=== PATIENT | male | born 1945 ===

== ENCOUNTER 2023-07-10 07:12 | Outpatient (REF) | payer MEDICARE, MEDICAID, SELFPAY ==
--- NOTE | ~2023-07-10 | XR_ITS ---
Exam: X-rays bilateral knees INDICATION: Pain in bilateral knees TECHNIQUE: 3 views of each knee. COMPARISON: None FINDINGS: Left knee: Bones are diffusely demineralized. Vascular calcifications. Marked narrowing of the medial compartment with remodeling, subchondral sclerosis and marginal osteophytes. Advanced degenerative changes in the patellofemoral compartment with joint space narrowing and hypertrophic change. Trace joint effusion. Right knee: Bones are diffusely demineralized. Vascular calcifications. Moderate to marked narrowing of the medial compartment with subchondral sclerosis and marginal osteophytes. Moderate degenerative changes in the patellofemoral compartment with joint space narrowing and hypertrophic change. Trace joint effusion. XR/XR knee RT 3V Impression: Severe degenerative changes bilateral knees, left greater than right.
--- NOTE | ~2023-07-10 | XR_ITS ---
Exam: X-rays bilateral knees INDICATION: Pain in bilateral knees TECHNIQUE: 3 views of each knee. COMPARISON: None FINDINGS: Left knee: Bones are diffusely demineralized. Vascular calcifications. Marked narrowing of the medial compartment with remodeling, subchondral sclerosis and marginal osteophytes. Advanced degenerative changes in the patellofemoral compartment with joint space narrowing and hypertrophic change. Trace joint effusion. Right knee: Bones are diffusely demineralized. Vascular calcifications. Moderate to marked narrowing of the medial compartment with subchondral sclerosis and marginal osteophytes. Moderate degenerative changes in the patellofemoral compartment with joint space narrowing and hypertrophic change. Trace joint effusion. XR/XR knee LT 3V Impression: Severe degenerative changes bilateral knees, left greater than right.
== END 2023-07-10 07:13 | disposition home or self-care (01) ==
LOC: HO.HOSX 07:12
PROVIDERS: Visit Provider Orthopaedic Surgery
DX: M17.0 Bilateral primary osteoarthritis of knee (principal)
CPT/HCPCS: 73562; 99202

== ENCOUNTER 2023-07-10 10:18 | Outpatient (AMB) | payer MEDICARE, MEDICAID, SELFPAY ==
--- NOTE | 2023-07-10 10:33 | A.OFFVIS_ITS ---
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 Patient reports his pain has been going on for about 5 years and is a 8 on the 1-10 pain scale. He states that both are equally bad and is using tylenol for the pain with little relief. He denies injury and surgery. He has cortisone injections with little relief. He has not had a viscosupplementation injection. He wishes to hold off on total knee replacement surgery for as long as possible. He has done physical therapy exercises which aggravated his pain. Allergies No Known Allergies Allergy (Verified 07/10/23 10:48) Medication List - Last Reconciled 07/10/23 by Fabrice Barragan MD amlodipine 10 mg PO DAILY celecoxib (Celebrex) 200 mg PO DAILY 3 months gabapentin mg PO hydralazine 25 mg PO BID lisinopril 40 mg PO DAILY metoprolol tartrate 100 mg PO BID pantoprazole 40 mg PO BID pravastatin 40 mg PO DAILY [facility] Surgical History (Updated 07/10/23 @ 10:49 by Jagruti Michaels CMA) Hx of cholecystectomy Hx of appendectomy Social History (Updated 07/10/23 @ 10:49 by Jagruti Michaels CMA) Patient Tobacco Use Status: Never used Tobacco Current occupational status: retired Physical Exam Vital Signs: BMI result Body Mass Index 38.4 Const Other: Well-nourished well-developed very friendly male awake alert and oriented x3 in no acute distress Extrem Other: Bilateral lower extremity examination shows good capillary refill, no skin lesions noted, normal sensation light touch Bilateral knee examination shows minimal effusions, palpable crepitus with range of motion, pain with range of motion, no instability Results Reviewed Results Reviewed: X-rays of the patient's bilateral knee show joint space narrowing, subchondral sclerosis, no acute bony abnormalities Assessment & Plan Assessment & Plan (1) Arthritis of left knee: Code(s): M17.12 - Unilateral primary osteoarthritis, left knee Category: Medical (2) Arthritis of right knee: Code(s): M17.11 - Unilateral primary osteoarthritis, right knee Category: Medical Plan Mr. Murrieta presents with bilateral knee pains due to degenerative joint disease. I had a lengthy discussion with the patient regarding the treatment options. He wishes to hold off on total knee replacement surgery for as long as possible. I agree with this plan. He has not gotten good relief from cortisone injections in the past. Thus, I will see whether or not the patient's insurance company will cover a viscosupplementation injection for both of his knees. I will see him back once the injections are available. I also gave him a prescription for Celebrex. Feel free to call me at any time should questions regarding his orthopedic management arise. Thank you very much for asking me to see this very friendly gentleman. I spent 21 minutes in reviewing the patient's records and imaging studies, seeing the patient and documenting in the medical record. Orders: Orders XR knee LT 3V 07/10/23 M25.562 - Pain in left knee XR knee RT 3V 07/10/23 M25.561 - Pain in right knee Medications: New celecoxib (Celebrex) 200 mg PO DAILY 90 caps 3RF 3 months Coding Level of Care Code New Pt Level 3 (25374) Diagnoses Arthritis of left knee M17.12 Arthritis of right knee M17.11
[2023-07-10 10:45] VITALS: BMI 38.4
== END 2023-07-10 11:05 | disposition home or self-care (01) ==
PROVIDERS: PCP Internal Medicine; Visit Provider Orthopaedic Surgery
DX: M17.0 Bilateral primary osteoarthritis of knee (principal)
CPT/HCPCS: 99204

== ENCOUNTER 2023-11-05 13:39 | Outpatient (AMB) | payer MEDICARE, MEDICAID, SELFPAY ==
[2023-11-05 13:41] VITALS: BMI 38.5
--- NOTE | 2023-11-05 13:41 | A.OFFVIS_ITS ---
Vital Signs 11/05/23 13:41 11/05/23 13:53 Height 5 ft 5 ft Weight 197 lb 197 lb BMI 38.5 38.5 Intake Visit Reasons: Bilateral knee pain Intake Note: Jluis is a 78 year old male who presents with complaints of bilateral knee pains. He describes his pains as sharp in nature. His pains have gotten worse over the last year in spite of continued non operative treatments. He has taken Tylenol and Celebrex which gave him mild relief. He denies any locking or giving way. He has done physical therapy exercises which aggravated his pain. He wishes to hold off on total knee replacement surgery for as long as possible. Allergies No Known Allergies Allergy (Verified 11/05/23 13:54) Medication List - Last Reconciled 11/05/23 by Fabrice Barragan MD amlodipine 10 mg PO DAILY celecoxib (Celebrex) 200 mg PO DAILY 3 months gabapentin mg PO hydralazine 25 mg PO BID lisinopril 40 mg PO DAILY metoprolol tartrate 100 mg PO BID pantoprazole 40 mg PO BID pravastatin 40 mg PO DAILY PFSH Surgical History (Updated 07/10/23 @ 10:49 by Jagruti Michaels CMA) Hx of cholecystectomy Hx of appendectomy Social History (Updated 07/10/23 @ 10:49 by Jagruti Michaels CMA) Patient Tobacco Use Status: Never used Tobacco Current occupational status: retired Physical Exam Vital Signs: BMI result Body Mass Index 38.5 Const Other: Well-nourished well-developed very friendly male awake alert and oriented x3 in no acute distress Extrem Other: Bilateral lower extremity examination shows good capillary refill, no skin lesions noted, normal sensation light touch Bilateral knee examination shows minimal effusions, palpable crepitus with range of motion, pain with range of motion, range of motion from -3 degrees to 115 degrees, no instability Office Procedures Joint Injection/Aspiration Joint Injection/Aspiration Primary Site: right knee Prep: site was prepped using aseptic technique Injected: 40 mg of, DepoMedrol and 1% plain lidocaine Procedure: The patient tolerated the procedure well Coding 91660 - Large joint Procedure code (CPT) selection complete Joint Injection/Aspiration Joint Injection/Aspiration Primary Site: left knee Prep: site was prepped using aseptic technique Injected: 40 mg of, DepoMedrol and 1% plain lidocaine Procedure: The patient tolerated the procedure well Coding 65734 - Large joint Procedure code (CPT) selection complete Results Reviewed Results Reviewed: X-rays of the patient's bilateral knee show joint space narrowing, subchondral sclerosis, no acute bony abnormalities Assessment & Plan Assessment & Plan (1) Arthritis of left knee: Code(s): M17.12 - Unilateral primary osteoarthritis, left knee Category: Medical (2) Arthritis of right knee: Code(s): M17.11 - Unilateral primary osteoarthritis, right knee Category: Medical (3) Pain in both knees: Code(s): M25.561 - Pain in right knee; M25.562 - Pain in left knee Plan Mr. Murrieta presents with bilateral knee pains due to degenerative joint disease. I had a lengthy discussion with the patient regarding the treatment options. The patient wishes to hold off on surgery for as long as possible. I agree with this plan. The risks and benefits of bilateral knee cortisone injections were discussed at length with the patient. The patient wished to proceed. Tolerated the injections well. He will continue with his home exercise program. He will contact me prior to his follow-up appointment in 3 months should any questions or concerns arise. Feel free to call me at any time should questions regarding his orthopedic management arise. I spent 20 minutes in reviewing the patient's records and imaging studies, seeing the patient and documenting in the medical record. Orders: Orders AMB Joint Injection/Aspiration Today M17.11 - Unilateral primary osteoarthritis, right knee AMB Joint Injection/Aspiration Today M17.12 - Unilateral primary osteoarthri tis, left knee Coding Level of Care Code Est Pt Level 3 (15762) Complex EM visit Add On G2211 Diagnoses Arthritis of left knee M17.12 Arthritis of right knee M17.11 Pain in both knees M25.561; M25.562 CPT Codes Coding - 96467 Large joint: 84467 - Large joint ([id number]) Coding - 76633 Large joint: 88193 - Large joint ([id number])
[2023-11-05 13:53] VITALS: BMI 38.5
== END 2023-11-05 14:17 | disposition home or self-care (01) ==
PROVIDERS: PCP Internal Medicine; Visit Provider Orthopaedic Surgery
DX: M17.0 Bilateral primary osteoarthritis of knee (principal)
CPT/HCPCS: 20610; 99213

== ENCOUNTER → 2023-11-05 13:39 | Outpatient (BNVA) | payer MEDICARE, MEDICAID, SELFPAY | PROVIDERS: PCP Internal Medicine; Visit Provider Orthopaedic Surgery | DX: M17.0 Bilateral primary osteoarthritis of knee (principal) | CPT/HCPCS: 20610; 99212; J1010 ==

== ENCOUNTER 2024-02-05 10:57 | Outpatient (AMB) | payer MEDICARE, MEDICAID, SELFPAY ==
--- OUTSIDE RECORDS SUMMARY | 2024-02-05 10:59 | XMS_ITS ---
Author Name [facility] Organization Unknown History of Medication Use Medication Directions Dispensed Refills Start Date End Date Stat gabapentin 100 mg capsule TAKE 1 CAPSULE BY MOUTH TWICE A DAY 09/13/2022 active lisinopril 40 mg tablet TAKE 1 TABLET BY MOUTH EVERY DAY FOR 30 DAYS 09/13/2022 active sucralfate 1 gram tablet TAKE 1 TABLET BY MOUTH THREE TIMES A DAY 09/13/2022 active amlodipine 10 mg tablet TAKE 1 TABLET BY MOUTH EVERY DAY FOR 90 DAYS 09/13/2022 active chlorhexidine gluconate 0.12 % mouthwash RINSE MOUTH WITH 15ML FOR 30 SECONDS THEN SPIT OUT. 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 03/22/2023 active hydrocortisone 2.5 % topical cream with perineal applicator APPLY TO AFFECTED AREA TWICE A DAY DIRECTED 09/13/2022 active quetiapine 50 mg tablet TAKE 1 TABLET BY MOUTH EVERYDAY AT BEDTIME 09/13/2022 active pantoprazole 40 mg tablet,delayed release TAKE 1 TABLET BY MOUTH TWICE A DAY 09/13/2022 active pravastatin 40 mg tablet TAKE 1 TABLET BY MOUTH EVERY DAY FOR 90 DAYS 09/13/2022 active hydralazine 25 mg tablet TAKE 1 TABLET BY MOUTH TWICE A DAY WITH FOOD 09/13/2022 active Kenalog 40 mg/mL suspension for injection Take 1 mL by injection route. 09/13/2022 active lidocaine (PF) 10 mg/mL (1 %) injection solution Take 2 mL by injection route. 09/13/2022 active Problems Problem Status Onset Date Problem Type Date of Resoluti on Source Osteoarthritis of right knee joint active 2022-06-06 ProblemAct [facility] Osteoarthritis of left knee joint active 2022-06-06 ProblemAct [facility]
--- OUTSIDE RECORDS SUMMARY | 2024-02-05 10:59 | XMS_ITS | Data Portability ---
Author Organization [facility] Pain Managem ANDREA noriega PAIN OFFICE Address [address] [place] [address] Care Team Providers Care Lead Developer Name Role Phone АЛЕКСАНДР BROOKS Primary Care Provider Assessment Encounter Date Assessment Date Assessment LastModified by Organization Details LastModified Time 03/18/2019 03/18/2019 Mr. Murrieta is a 73 year old man with low back pain radiating into both lower extremities. On exam ,he has pain on flexion. 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 L4-L5 right paracentral and foraminal disc protrusion extending superiorly resulting impingement of the right L4 exiting nerve root. L4-L5 right paracentral disc protrusion extending inferiorly and compressing the right L5 traversing nerve root. Compression of the left L5 traversing nerve root is also present. I recommend a repeat Lumbar epidural steroid injections under fluroscopic guidance. The risks and benefits of the procedure were discussed in detail. He wishes to proceed. An appointment has been booked for the same. He needs a speedboat driver on the day of the procedure. [email or web address] Not available 03/18/2019 11:39:48 04/14/2019 04/14/2019 Mr. Murrieta is a 73 year old man with low back pain radiating into both lower extremities. On exam ,he has pain on flexion. He is here for a repeat Lumbar epidural steroid injections under fluoroscopic guidance. The risks and benefits of the procedure were discussed in detail. He wishes to proceed. He can follow up as needed. [email or web address] Not available 04/14/2019 11:32:02 11/10/2019 11/10/2019 Mr. Murrieta is a 74 year old man with low back pain radiating into both lower extremities. On exam ,he has pain on flexion. 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 L4-L5 right paracentral and foraminal disc protrusion extending superiorly resulting impingement of the right L4 exiting nerve root. L4-L5 right paracentral disc protrusion extending inferiorly and compressing the right L5 traversing nerve root. Compression of the left L5 traversing nerve root is also present. I recommend a repeat Lumbar epidural steroid injections under fluroscopic guidance. The risks and benefits of the procedure were discussed in detail. He wishes to proceed. An appointment has been booked for the same. He needs a speedboat driver on the day of the procedure. [email or web address] Not available 11/11/2019 09:59:02 11/04/2020 11/04/2020 Mr. Murrieta is a 75 year old man with low back pain radiating into both lower extremities, right is greater than left. On exam ,he has pain on flexion. 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 L4-L5 right paracentral and foraminal disc protrusion extending superiorly resulting impingement of the right L4 exiting nerve root. L4-L5 right paracentral disc protrusion extending inferiorly and compressing the right L5 traversing nerve root. Compression of the left L5 traversing nerve root is also present. I recommend a repeat Lumbar epidural steroid injections under fluoroscopic guidance. The risks and benefits of the procedure were discussed in detail. He wishes to proceed. An appointment has been booked for the same. He needs a speedboat driver on the day of the procedure. tmanikantan Not available 11/04/2020 10:12:44 11/08/2020 11/08/2020 Mr. Murrieta is a 75 year old man with low back pain radiating into both lower extremities. On exam ,he has pain on flexion. He is here for a repeat Lumbar epidural steroid injections under fluoroscopic guidance. The risks and benefits of the procedure were discussed in detail. He wishes to proceed. He can follow up as needed. [email or web address] Not available 11/08/2020 11:24:26 Plan of Treatment Reminders Order Date Submit Date Provider Last Modified By Organization Details Last Modified Time Details Appointments None record ed. Lab None record ed. Referral None record ed. Procedures None record ed. Surgeries None record ed. Imaging None record ed. Medication Orders None record ed. Patient TargetsNo targets recorded. Patient Instructions Encounter Date Encounter Id Patient Instructions Last Modified By Organization Details Last Modified Time 03/18/2019 [id number] He was advised against bed rest lasting longer than four days and to continue activities as tolerated. [email or web address] Not available 03/18/2019 11:38:54 04/14/2019 [id number] He was advised to continue with home exercise program tmanikantan Not available 04/14/2019 11:29:15 He was advised against bed rest lasting longer than four days and to continue activities as tolerated. tmanikantan Not available 04/14/2019 11:29:17 11/10/2019 [id number] He was advised against bed rest lasting longer than four days and to continue activities as tolerated. Telehealth visit: The patient was located at home for this telephone electronic visit and gave consent for this visit to be conducted via telehealth. 15 minutes was spent on this call and greater than 50% of the visit was spent on counseling and coordination of care. tmanikantan Not available 11/11/2019 09:59:16 11/04/2020 [id number] He was advised against bed rest lasting longer than four days and to continue activities as tolerated. tmanikantan Not available 11/04/2020 10:10:07 11/08/2020 [id number] He was advised to continue with home exercise program tmanikantan Not available 11/08/2020 11:23:19 He was advised against bed rest lasting longer than four days and to continue activities as tolerated. tmanikantan Not available 11/08/2020 11:23:20 Reason for Referral None Reported. Results Created Date Observation Date Name Description Value Unit Range Abnormal Flag Note LastModifiedBy Organization Detail LastModifiedTime 03/03/19 20 03/02/2019 MRI, lumba r spine , w/o contr ast [facility] Access ion Number : [id number] 4.3 Patiyohan t Name : Jesika Scanlon y Medica l Record Number : [id number] Date of : 1945 Date of Exam : 2019 Referr ing Physic isela : KEM LAZARDaniel, MARTYMarli [facility] [address] [place] [address] Exam : MR - LUMBAR SPINE (C-) CPT 12120 - Room Descri ption : [place] Siem Espr 2 1.5 Techni que : Sag T1, Sag3d SPACE, Sag STIR, Sag T2 reform at, Ax T2 reform at Final Report INDICA TION: Radicu lopath y. Additi onal histor y includ es back pain extend ing into the bilate ral lower extrem ities with bilate ral lower extrem ity parest hesias . TECHNI QUE: Multip lanar multis equenc e MRI of the lumbar spine was obtain ed withou t IV contra st. COMPAR ELDA: No prior. FINDIN GS: The lumbar spine alignm ent is mainta ined. The verteb ral body height s are preser ronald. There are multil evel Modic type II endpla te marrow change s throug hout the lumbar spine. The bone marrow signal is otherw ise unrema rkable . There is overal l congen ital short pedicl es with diffus e narrow ing of the spinal canal. The conus medull aletha termin ates at L1-L2 and has normal signal and config uratio n. The parasp inal and visual ized retrop eriton eal soft tissue s appear unrema rkable . Only seen in the locali zer images , incomp letely visual ized T2 hyperi ntense lesion s are noted in the kidney s, probab ly cysts. At T11-T1 2, there is a mild diffus e disc bulge withou t signif icant spinal canal or forami nal stenos is. There is facet joint arthro rhonda. At T12-L1 , there is no spinal canal or forami nal stenos is. The disc is preser ronald. There are bilate ral margin al spurs. At L1-L2, there is a mild diffus e disc bulge, ligame ntum flavum thicke ced, facet joint arthro rhonda, and promin ent epidur al fat result ing in mild to modera te spinal canal stenos is with crowdi ng of the magi sing nerve roots. There is modera te right and mild left forami nal stenos is. At L2-L3, there is a modera te diffus e disc bulge, promin ent epidur al fat, ligame ntum flavum thicke ced, and facet joint arthro rhonda result ing in severe spinal canal stenos is with compre ssion of the magi sing nerve roots. The nerve roots above this level appear buckle d. There is mild bilate ral forami nal stenos is. At L3-L4, there is a diffus e disc bulge with a superi mposed right extraf oramin al asymme tric disc protru porter. There is ligame ntum flavum thicke ced, promin ent epidur al fat, and facet joint arthro rhonda. These findin gs result in severe spinal canal stenos is with compre ssion of the magi sing nerve roots. There is mild to modera te left and modera te right forami nal stenos is. The bilate ral L3 exitin g nerve roots contac t the bulgin g disc within the forami na. At L4-L5, there is a modera te diffus e disc bulge with a superi mposed right forami nal and parace ntral disc protru porter extend ing superi nena and into the right forame n imping ing upon the right L4 exitin g nerve root. There is ligame ntum flavum thicke ced, promin ent epidur al fat, and facet joint arthro rhonda result ing in severe spinal canal stenos is with compre ssion of the magi sing nerve roots. There is modera te left forami nal stenos is. The left L4 exitin g nerve root contac ts the bulgin g disc outsid e the forame n. A right parace ntral disc protru porter is also extend ing inferi nena and deform ing the ventra l aspect of the thecal sac as well as narrow ing the canal national sales executive ior to the superi or aspect of the L5 verteb ral body with compre ssion of the right L5 nerve root. There is also compre ssion of the left L5 magi sing nerve root. At L5-S1, there is facet joint arthro rhonda withou t signif icant forami nal stenos is. There is promin ent epidur al fat result ing in mild spinal canal stenos is. IMPRES PORTER: In a backgr ound of diffus e mild spinal canal stenos is due to congen ital short pedicl es, multil evel severe spinal canal stenos is at L2-L3, L3-L4, and L4-L5 with compre ssion of the magi sing nerve roots. L4-L5 right parace ntral and forami nal disc protru porter extend ing superi nena result ing imping ement of the right L4 exitin g nerve root. L4-L5 right parace ntral disc protru porter extend ing inferi nena and compre ssing the right L5 magi sing nerve root. Compre ssion of the left L5 magi sing nerve root is also presen t. Incomp letely visual ized T2 hyperi ntense lesion s in the region of the kidney s probab ly cysts. ----- PHYSIC ISELA : ALINA WARNER MD (Signa paulettee on file) 2019 [facility] [address] [facility] [place], [address], 03/18/2019 11:09:20 03/03/19 20 03/02/2019 MRI, lumba r spine , w/o contr ast No observ ation record ed. [facility] [address], [place], [address], 03/18/2019 11:03:23 Result Notes None recorded. 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 Procedures Surgical History Date Name Laterality Status Provider Name and Address Organization Details Recorded Time 11/09/19 21 Lumbar Epidural steroid injection under fluoroscopic guidance completed José Antonio Umanzor MD [address] , [address], [place], [address], [place] [facility] 11/08/2020 11:23:58 04/14/19 20 Lumbar Epidural steroid injection under fluoroscopic guidance completed José Antonio Umanzor MD [address] , [address], [place], [address], [place] [facility] 04/14/2019 11:31:21 08/30/19 16 Lumbar Epidural steroid injection under fluoroscopic guidance completed José Antonio Umanzor MD [address] , [address], [place], [address], [place] [facility] 09/01/2015 13:37:26 05/31/19 16 Lumbar Epidural steroid injection under fluoroscopic guidance completed José Antonio Umanzor MD [address] , [address], [place], [address], [place] [facility] 05/31/2015 14:20:54 11/10/19 15 Lumbar Epidural steroid injection under fluoroscopic guidance completed José Antonio Umanzor MD [address] , [address], [place], [address], [place] [facility] 11/09/2014 14:39:42 08/11/19 15 Lumbar Epidural steroid injection under fluoroscopic guidance completed José Antonio Umanzor MD [address] , [address], [place], [address], [place] [facility] 08/12/2014 14:30:47 12/23/19 13 Lumbar Epidural steroid injection under fluoroscopic guidance completed José Antonio Umanzor MD [address] , [address], [place], [address], [place] [facility] 12/23/2012 14:13:41 11/13/19 13 Lumbar Epidural steroid injection under fluoroscopic guidance completed José Antonio Umanzor MD [address] , [address], [place], [address], [place] [facility] 11/18/2012 13:56:25 Cholecystectomy completed Josephine Fitzpatrick [place] - [facility] 11/05/2012 08:26:57 Appendectomy completed Josephine Fitzpatrick [place] - [facility] 11/05/2012 08:26:57 Imaging Results Imaging Date Name Status LastModified by Organiz ation Details LastModified Time 03/02/2019 MRI, lumbar spine, w/o contrast completed [facility] [address] [place], [address], 03/18/2019 11:09:20 03/02/2019 MRI, lumbar spine, w/o contrast completed [facility] [address] [facility] [address] [place], [address], 03/18/2019 11:03:23 Procedure Notes None recorded. Medical Equipment None Reported. Allergies No known drug allergies Medications Name Sig Start Date Stop Date Status Note LastModified by Organization Details LastModified Time amoxicillin 500 mg capsule 03/18 completed Not Available Not Available Not Available prednisone 10 mg tablet 02/26 completed Not Available Not Available Not Available doxycycline hyclate 100 mg capsule 06/25 completed Not Available Not Available Not Available citalopram 40 mg tablet 02/26 completed Not Available Not Available Not Available azithromycin 250 mg tablet active Not Available Not Available Not Available pravastatin 40 mg tablet TAKE 1 TABLET BY MOUTH EVERY DAY 11/08 completed Not Available Not Available Not Available ibuprofen 800 mg tablet active Not Available Not Available Not Available metoprolol tartrate 100 mg tablet TAKE 1 TABLET BY MOUTH TWICE A DAY WITH MEALS active Not Available Not Available No t Available Avelox 400 mg tablet active Not Available Not Available No t Available prednisone 5 mg tablet 02/26 completed Not Available Not Available Not Available clonazepam 1 mg tablet 02/26 completed Not Available Not Available Not Available hydralazine 25 mg tablet TAKE 1 TABLET BY MOUTH TWICE A DAY WITH FOOD active Not Available Not Available No t Available peg-electrol yte solution 420 gram oral solution active Not Available Not Available Not Available quetiapine 100 mg tablet 02/26 completed Not Available Not Available Not Available oxycodone-ac etaminophen 5 mg-325 mg tablet active Not Available Not Available Not Available tamsulosin 0.4 mg capsule 03/18 completed Not Available Not Available Not Available trazodone 100 mg tablet active Not Available Not Available Not Available amlodipine 10 mg tablet TAKE 1 TABLET BY MOUTH EVERY DAY active Not Available Not Available No t Available benzonatate 100 mg capsule TAKE 1 CAPSULE BY MOUTH THREE TIMES A DAY 06/25 completed Not Available Not Available Not Available dexamethason e 4 mg tablet 02/26 completed Not Available Not Available Not Available omeprazole 20 mg capsule,mercedes yed release active Not Available Not Available Not Available gabapentin 100 mg capsule TAKE ONE CAPSULE BY MOUTH TWICE A DAY active Not Available Not Available No t Available ergocalcifer ol (vitamin D2) 1,250 mcg (50,000 unit) capsule TAKE 1 CAPSULE BY MOUTH ONCE A WEEK active Not Available Not Available No t Available zolpidem 10 mg tablet TAKE 1 TABLET BY MOUTH AT BEDTIME active Not Available Not Available No t Available methylpredni solone 4 mg tablets in a dose pack 06/25 completed Not Available Not Available Not Available lisinopril 40 mg tablet TAKE 1 TABLET BY MOUTH EVERY DAY 11/08 completed Not Available Not Available Not Available doxycycline hyclate 100 mg tablet 02/26 completed Not Available Not Available Not Available loratadine 10 mg tablet TAKE 1 TABLET BY ORAL ROUTE EVERY DAY 03/18 completed Not Available Not Available Not Available tobramycin 0.3 %-dexamethas one 0.1 % eye drops,suspen porter active Not Available Not Available Not Available oxycodone 5 mg tablet active Not Available Not Available No t Available chlorhexidin e gluconate 0.12 % mouthwash active Not Available Not Available No t Available ProAir HFA 90 mcg/actuatio n aerosol inhaler active Not Available Not Available Not Available quetiapine 50 mg tablet TAKE 1 TABLET BY MOUTH AT BEDTIME active Not Available Not Available No t Available Voltaren 1 % topical gel active Not Available Not Available Not Available Uloric 40 mg tablet Take 1 tablet every day by oral route. active Not Available Not Available No t Available Kalexate oral powder active Not Available Not Available Not Available GaviLyte-G 236 gram-22.74 gram-6.74 gram-5.86 gram oral solution 11/04 completed Not Available Not Available Not Available Vitals Date Recorded Body height Body mass index (BMI) Body weight Heart rate Oxygen saturation Oxygen saturation in Arterial blood by Pulse oximetry Systolic blood pressure Diastolic blood pressure Provider Name and Address Organization Details Last Updated DateTime 0 170.18 cm 38.7 kg/m2 694773. 32 g 57 /min 98 % 98 % 132 mm[Hg] 53 mm[Hg] José Antonio freed MD [address] , [address], [place], [address], [place] [facility] 0 10:58:47 Date Recorded Body height Body mass index (BMI) Body weight Heart rate Oxygen saturation Oxygen saturation in Arterial blood by Pulse oximetry Systolic blood pressure Diastolic blood pressure Provider Name and Address Organization Details Last Updated DateTime 0 170.18 cm 38.7 kg/m2 783550. 32 g 56 /min 95 % 95 % 137 mm[Hg] 44 mm[Hg] Lonny freed [place] - [facility] 0 09:18:40 Date Recorded Body height Heart rate Oxygen saturation Oxygen saturation in Arterial blood by Pulse oximetry Body mass index (BMI) Body weight Systolic blood pressure Diastolic blood pressure Provider Name and Address Organization Details Last Updated DateTime 1 170.18 cm 56 /min 95 % 95 % 37.4 kg/m2 942605. 58 g 126 mm[Hg] 44 mm[Hg] José Antonio freed MD [address] , [address], [place], [address], [place] [facility] 1 09:16:16 Date Recorded Body height Heart rate Oxygen saturation Oxygen saturation in Arterial blood by Pulse oximetry Systolic blood pressure Diastolic blood pressure Provider Name and Address Organization Details Last Updated DateTime 1 170.18 cm 52 /min 95 % 95 % 136 mm[Hg] 50 mm[Hg] Kelsey Pattonwell [place] - [facility] 1 11:04:12 Social History Question Answer Notes LastModified by Organizat ion Details LastModified Time Tobacco Smoking Status Never Smoker Not Available [employer] 12/04/2019 03:16:10 What Is Your Level Of Alcohol Consumption? Occasional [id number] Information not available 12/04/2019 Are You Currently Employed? Yes Retired [id number] Information not available 12/04/2019 Which Illicit Or Recreational Drugs Have You Used? No [id number] Information not available 12/04/2019 Education 12 Information no t available 11/05/2012 Live Alone Or With Others? Alone [facility] Information not available 11/05/2012 Marital Status [facility] Informatio n not available 11/05/2012 What Was The Date Of Your Most Recent Tobacco Screening? 07/03/2018 [id number] Information not available 12/04/2019 Sex: Unknown Functional Status None recorded. Mental Status None recorded. Family History Nothing Reported. Medical History Condition Response Kidney Stones Y Hypertension Y Kidney Disease Y High Cholesterol Y GERD/Reflux Y Past Encounters Encounter ID Performer Location Encounter Start Date Encounter Closed Date Diagnosis/Indication Diagnosis SNOMED-CT Code Diagnosis ICD10 Code [id number] José Antonio Umanzor MD PAIN OFFICE [address] [facility] [place] [address] 11/05/2012 07:56:28 11/05/2012 10:46:13 [id number] José Antonio Umanzor MD PAIN OFFICE [address] [facility] [place] [address] 11/12/2012 13:06:18 11/18/2012 13:56:45 Displacement of lumbar intervertebral disc without myelopathy 37932953 Lumbosacra l radiculitis 64193049 61689 PAIN OFFICE [address] [facility] [place] [address] 12/11/2012 13:25:59 12/11/2012 14:02:08 Displacement of lumbar intervertebral disc without myelopathy 12496966 Lumbosacra l radiculitis 11084374 Spinal priyank nosis of lumbar region 78232334 12500 [facility] [address] [facility] [place] [address] 12/22/2012 11:20:03 12/22/2012 15:24:15 Spinal stenosis of lumbar region 84558142 Displaceme nt of lumbar intervertebral disc without myelopathy 15060036 Lumbosacra l radiculitis 92640901 00874 [facility] [address] [facility] [place] [address] 02/05/2013 13:06:46 02/05/2013 14:50:05 Spinal stenosis of lumbar region 93118216 Displaceme nt of lumbar intervertebral disc without myelopathy 93299430 Lumbosacra l radiculitis 19398860 20720 [facility] [address] [facility] [place] [address] 07/26/2014 10:46:47 07/27/2014 09:34:23 Displacement of lumbar intervertebral disc without myelopathy 30616211 Lumbar spondylosis 82363 0009 Spinal priyank nosis of lumbar region 45734135 46944 [facility] [address] [facility] [place] [address] 08/10/2014 14:16:57 08/12/2014 14:31:26 Spinal stenosis of lumbar region 96792684 Displaceme nt of lumbar intervertebral disc without myelopathy 11453417 Lumbar spondylosis 88604 0009 Lumbosacra l radiculitis 15630887 48496 [facility] [address] [facility] [place] [address] 09/09/2014 10:46:20 09/09/2014 11:33:07 Spinal stenosis of lumbar region 85879791 Displaceme nt of lumbar intervertebral disc without myelopathy 41175099 Lumbar spondylosis 64289 0009 Lumbosacra l radiculitis 90487993 82391 [facility] [address] [facility] [place] [address] 11/08/2014 10:54:37 11/08/2014 11:26:13 Spinal stenosis of lumbar region 80780745 Displaceme nt of lumbar intervertebral disc without myelopathy 96592714 Lumbar spondylosis 21019 0009 Lumbosacra l radiculitis 29073399 99154 [facility] [address] [place] [address] 11/09/2014 13:48:33 11/09/2014 15:35:53 Spinal stenosis of lumbar region 71327748 Displaceme nt of lumbar intervertebral disc without myelopathy [id number] Lumbar spondylosis 42870 0009 Lumbosacra l radiculitis 40570883 [id number] José Antonio Umanzor MD [facility] [address] [place] [address] 05/31/2015 13:54:03 05/31/2015 14:21:27 Spinal stenosis of lumbar region 27069297 M48.06 Displaceme nt of lumbar intervertebral disc without myelopathy 17139475 M51.26 Lumbar spondylosis 72688 0009 M47.26 Lumbosacra l radiculitis 36329447 M54.17 [id number] José Antonio Umanzor MD PAIN OFFICE [address] [place] [address] 08/30/2015 15:22:40 09/01/2015 13:37:55 Spinal stenosis of lumbar region 53535199 M48.06 Displaceme nt of lumbar intervertebral disc without myelopathy 32180926 M51.26 Lumbar spondylosis 64538 0009 M47.26 Lumbosacra l radiculitis 95300911 M54.17 [id number] José Antonio Umanzor MD PAIN OFFICE [address] [place] [address] 06/25/2018 13:43:24 06/25/2018 14:47:03 Degeneration of cervical intervertebral disc 53291672 M50.30 Cervical radiculopathy 14964536 M54.12 [id number] José Antonio Umanzor MD [facility] [address] [place] [address] 07/03/2018 13:11:22 07/03/2018 14:17:28 Degeneration of cervical intervertebral disc 60652930 M50.30 Cervical radiculopathy 67671462 M54.12 [id number] José Antonio Umanzor MD [facility] [address] [place] [address] 02/26/2019 08:06:35 02/26/2019 08:53:29 Spinal stenosis of lumbar region 52015673 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 38462067 M51.26 Lumbar spondylosis 60199 0009 M47.26 Lumbosacra l radiculitis 05466504 M54.17 [id number] José Antonio Umanzor MD [facility] [address] [place] [address] 03/18/2019 10:43:42 03/18/2019 11:40:26 Spinal stenosis of lumbar region 95497716 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 81461368 M51.26 Lumbar spondylosis 66989 0009 M47.26 Lumbosacra l radiculitis 92843926 M54.17 [id number] José Antonio Umanzor MD [facility] [address] [place] [address] 04/14/2019 08:57:30 04/14/2019 14:33:43 Spinal stenosis of lumbar region 13114292 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 18618090 M51.26 Lumbar spondylosis 47079 0009 M47.26 Lumbosacra l radiculitis 58333043 M54.17 [id number] José Antonio Umanzor MD [facility] [address] [place] [address] 11/10/2019 12:09:37 11/11/2019 10:00:07 Spinal stenosis of lumbar region 80902866 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 18151767 M51.26 Lumbar spondylosis 84781 0009 M47.26 Lumbosacra l radiculitis 64339272 M54.17 [id number] José Antonio Umanzor MD [facility] [address] [place] [address] 11/04/2020 09:05:45 11/04/2020 10:13:28 Spinal stenosis of lumbar region 06733268 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 34417573 M51.26 Lumbar spondylosis 39632 0009 M47.26 Lumbosacra l radiculitis 64941652 M54.17 [id number] José Antonio Umanzor MD [facility] [address] [facility] [address] [place] [address] 11/08/2020 10:50:37 11/08/2020 11:27:50 Spinal stenosis of lumbar region 98044191 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 42584262 M51.26 Lumbar spondylosis 90335 0009 M47.26 Lumbosacra l radiculitis 64551302 M54.17 Health Concerns Section Related Observation LastModified by Organization Detai ls LastModified Time None Recorded Concern Status LastModified by Organization Details LastModified Time None Recorded Advance Directives Directive None Recorded Payers Encounter Date Sequence Insurance Name Policy Number Policy Nolasco Covered Member ID Nolasco Member ID Guarantor Name 03/18/2019 1 [place] [employer] Jluis Starcheus [id number] Jluis Starcheus 03/18/2019 2 [place] Jluis Starcheus [id number] Jluis Starcheus 04/14/2019 1 [place] [employer] Jluis Starcheus [id number] Jluis Starcheus 04/14/2019 2 [place] Jluis Starcheus [id number] Jluis Starcheus 11/10/2019 1 [place] [employer] Jluis Starcheus [id number] Jluis Starcheus 11/10/2019 2 [place] Jluis Starcheus [id number] Jluis Starcheus 11/04/2020 1 [place] [employer] Jluis Starcheus [id number] Jluis Starcheus 11/04/2020 2 [place] Jluis Starcheus [id number] Jluis Murrieta 11/08/2020 1 [place] [employer] Jluis Murrieta [id number] Jluis Murrieta 11/08/2020 2 [place] [facility] Jluis Murrieta [id number] Jluis Murrieta Notes Date Note Type Note Provider Name and Address Organization Details Recorded Time 03/18/2019 text/html He is here for review of MRI Lumbar spine . 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 L4-L5 right paracentral and foraminal disc protrusion extending superiorly resulting impingement of the right L4 exiting nerve root. L4-L5 right paracentral disc protrusion extending inferiorly and compressing the right L5 traversing nerve root. Compression of the left L5 traversing nerve root is also present. He continues to have low back pain radiating into right lower extremity. He has been doing physical therapy with some improvement of his pain. He is able to walk without the cane for a few steps. José Antonio Umanzor MD [address] [facility] , [address], [place], [address], [facility] - Pain Management 03/18/2019 15:00:19 04/14/2019 text/html He is here today for a lumbar epidural steroid injection under fluoroscopic guidance. José Antonio Umanzor MD [address] [facility] , [address], [place], [address], [facility] - Pain Management 04/14/2019 16:33:15 11/10/2019 text/html This is a follow up.He continues to have low back pain radiating into right lower extremity. He has been doing physical therapy with some improvement of his pain. He is able to walk without the cane for a few steps. 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 L4-L5 right paracentral and foraminal disc protrusion extending superiorly resulting impingement of the right L4 exiting nerve root. L4-L5 right paracentral disc protrusion extending inferiorly and compressing the right L5 traversing nerve root. Compression of the left L5 traversing nerve root is also present. He had a lumbar epidural steroid injection on 03/2019 and reports good pain benefit with a recent return of pain. He is also having knee pain and is seeing [facility] and is getting injections. José Antonio Umanzor MD [address] [facility] , [address], [place], [address], [facility] Pain Management 11/11/2019 11:16:19 11/04/2020 text/html He is here for a follow up . He continues to have low back pain radiating into right lower extremity. He has been doing physical therapy with some improvement of his pain. He is able to walk without the cane for a few steps. [facility] He [facility] from now . He is wearing a back brace and feels it helps him. He has no history of bladder or bowel incontinence. 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 L4-L5 right paracentral and foraminal disc protrusion extending superiorly resulting impingement of the right L4 exiting nerve root. L4-L5 right paracentral disc protrusion extending inferiorly and compressing the right L5 traversing nerve root. Compression of the left L5 traversing nerve root is also present. José Antonio Umanzor MD [address] [facility] , [address], [place], [address], [facility] Pain Management 11/07/2020 09:27:27 11/08/2020 text/html He is here today for a lumbar epidural steroid injection under fluoroscopic guidance. José Antonio Umanzor MD [address] [facility] , [address], [place], [address], [facility] Pain Management 11/08/2020 15:27:26
--- NOTE | 2024-02-05 11:01 | MHC.OFFVIS ---
Vital Signs 02/05/24 11:07 Height 5 ft Weight 197 lb BMI 38.5 Intake Visit Reasons: Bilateral knee pains Intake Note: Jluis is a 78 year old male who presents with complaints of bilateral knee pain. He describes his pains as sharp in nature. Has had cortisone injections which gave him fairly good relief. He has also tried Tylenol and Celebrex which gave him mild relief. He has done physical therapy exercises which aggravated his pain. He wishes to hold off on surgery for as long as possible. Last injections 11/05/23 helped, repeat today: yes Allergies No Known Allergies Allergy (Verified 02/05/24 11:08) Medication List - Last Reconciled 02/05/24 by Fabrice Barragan MD amlodipine 10 mg PO DAILY celecoxib (Celebrex) 200 mg PO DAILY 3 months gabapentin mg PO hydralazine 25 mg PO BID lisinopril 40 mg PO DAILY metoprolol tartrate 100 mg PO BID pantoprazole 40 mg PO BID pravastatin 40 mg PO DAILY PFSH Surgical History (Updated 07/10/23 @ 10:49 by Jagruti Michaels CMA) Hx of cholecystectomy Hx of appendectomy Social History (Updated 07/10/23 @ 10:49 by Jagruti Michaels CMA) Patient Tobacco Use Status: Never used Tobacco Current occupational status: retired Physical Exam Vital Signs: BMI result Body Mass Index 38.5 Const Other: Well-nourished well-developed very friendly male awake alert and oriented x3 in no acute distress Extrem Other: Bilateral lower extremity examination shows good capillary refill, no skin lesions noted, normal sensation light touch Bilateral knee examination shows minimal effusions, palpable crepitus with range of motion, pain with range of motion, range of motion from -3 degrees to 115 degrees, no instability Office Procedures AMB Joint Injection/Aspiration Joint Injection/Aspiration Primary Site: right knee Prep: site was prepped using aseptic technique Injected: 40 mg of, DepoMedrol and 1% plain lidocaine Procedure: The patient tolerated the procedure well Coding 91250 - Large joint Procedure code (CPT) selection complete AMB Joint Injection/Aspiration Joint Injection/Aspiration Primary Site: left knee Prep: site was prepped using aseptic technique Injected: 40 mg of, DepoMedrol and 1% plain lidocaine Procedure: The patient tolerated the procedure well Coding 00503 - Large joint Procedure code (CPT) selection complete Results Reviewed Results Reviewed: X-rays of the patient's bilateral knees taken previously show joint space narrowing, subchondral sclerosis, no acute bony abnormalities Assessment & Plan Assessment & Plan (1) Arthritis of left knee: Code(s): M17.12 - Unilateral primary osteoarthritis, left knee Category: Medical (2) Arthritis of right knee: Code(s): M17.11 - Unilateral primary osteoarthritis, right knee Category: Medical Plan Jluis presents with bilateral knee pains due to degenerative joint disease. The risks and benefits of bilateral knee cortisone injections were discussed at length with the patient. The patient wished to proceed. He tolerated the injections well. He will continue with his home exercise program. He will contact me prior to his follow-up appointment in 3 months should any questions or concerns arise. Feel free to call me at any time should questions regarding his orthopedic management arise. I spent 22 minutes in reviewing the patient's records and imaging studies, seeing the patient and documenting in the medical record. Orders: Orders AMB Joint Injection/Aspiration Today M17.11 - Unilateral primary osteoarthritis, right knee AMB Joint Injection/Aspiration Today M17.12 - Unilateral primary osteoarthritis, left knee Coding Level of Care Code Est Pt Level 3 (07980) Complex EM visit Add On G2211 Diagnoses Arthritis of left knee M17.12 Arthritis of right knee M17.11 CPT Codes Coding - 00636 Large joint: 69225 - Large joint ([id number]) Coding - 17507 Large joint: 74088 - Large joint ([id number])
[2024-02-05 11:07] VITALS: BMI 38.5
== END 2024-02-05 11:32 | disposition home or self-care (01) ==
PROVIDERS: PCP Internal Medicine; Visit Provider Orthopaedic Surgery
DX: M17.0 Bilateral primary osteoarthritis of knee (principal)
CPT/HCPCS: 20610; 99213

== ENCOUNTER → 2024-02-05 10:57 | Outpatient (BNVA) | payer MEDICARE, MEDICAID, SELFPAY | PROVIDERS: PCP Internal Medicine; Visit Provider Orthopaedic Surgery | DX: M17.0 Bilateral primary osteoarthritis of knee (principal) | CPT/HCPCS: 20610; 99212; J1010; J2003 ==

== ENCOUNTER 2024-05-06 10:57 | Outpatient (AMB) | payer MEDICARE, MEDICAID, SELFPAY ==
--- NOTE | 2024-05-06 11:05 | MHC.OFFVIS ---
Vital Signs 05/06/24 11:06 Height 5 ft Weight 197 lb BMI 38.5 Intake Visit Reasons: Bilateral knee pains Intake Note: Jluis is a 78 year old male who presents with complaints of bilateral knee pains. He describes his pains as sharp in nature. He has had cortisone injections in the past which gave him fairly good relief. He has also tried Tylenol and Celebrex which gave him only mild relief. He wishes to hold off on surgery if at all possible. Allergies No Known Allergies Allergy (Verified 05/06/24 11:09) Medication List - Last Reconciled 05/06/24 by Fabrice Barragan MD amlodipine 10 mg PO DAILY celecoxib (Celebrex) 200 mg PO DAILY 3 months gabapentin mg PO hydralazine 25 mg PO BID lisinopril 40 mg PO DAILY metoprolol tartrate 100 mg PO BID pantoprazole 40 mg PO BID pravastatin 40 mg PO DAILY PFSH Surgical History (Updated 07/10/23 @ 10:49 by Jagruti Michaels CMA) Hx of cholecystectomy Hx of appendectomy Social History (Updated 07/10/23 @ 10:49 by Jagruti Michaels CMA) Patient Tobacco Use Status: Never used Tobacco Current occupational status: retired Physical Exam Vital Signs: BMI result Body Mass Index 38.5 Const Other: Well-nourished well-developed very friendly male awake alert and oriented x3 in no acute distress Extrem Other: Bilateral lower extremity examination shows good capillary refill, no skin lesions noted, normal sensation light touch Bilateral knee examination shows minimal effusions, palpable crepitus with range of motion, pain with range of motion, no instability Office Procedures AMB Joint Injection/Aspiration Joint Injection/Aspiration Primary Site: left knee Prep: site was prepped using aseptic technique Injected: 40 mg of, DepoMedrol and 1% plain lidocaine Procedure: The patient tolerated the procedure well Coding 57603 - Large joint Procedure code (CPT) selection complete AMB Joint Injection/Aspiration Joint Injection/Aspiration Primary Site: right knee Prep: site was prepped using aseptic technique Injected: 40 mg of, DepoMedrol and 1% plain lidocaine Procedure: The patient tolerated the procedure well Coding 92488 - Large joint Procedure code (CPT) selection complete Results Reviewed Results Reviewed: X-rays of the patient's bilateral knees taken previously show joint space narrowing, subchondral sclerosis, no acute bony abnormalities Assessment & Plan Assessment & Plan (1) Arthritis of left knee: Code(s): M17.12 - Unilateral primary osteoarthritis, left knee Category: Medical (2) Arthritis of right knee: Code(s): M17.11 - Unilateral primary osteoarthritis, right knee Category: Medical Plan Mr. Murrieta presents with bilateral knee pains due to degenerative joint disease. The risks and benefits of bilateral knee cortisone injections were discussed at length with the patient. The patient wished to proceed. He tolerated the injections well. He will continue with his home exercise program. He will follow up with me in 3 months' time for repeat clinical examination. Feel free to call me at any time should questions regarding his orthopedic management arise. I spent 22 minutes in reviewing the patient's records and imaging studies, seeing the patient and documenting in the medical record. Orders: Orders AMB Joint Injection/Aspiration Today M17.12 - Unilateral primary osteoarthritis, left knee AMB Joint Injection/Aspiration Today M17.11 - Unilateral primary osteoarthritis, right knee Coding Level of Care Code Est Pt Level 3 (46147) Complex EM visit Add On G2211 Diagnoses Arthritis of left knee M17.12 Arthritis of right knee M17.11 CPT Codes Coding - 60927 Large joint: 53854 - Large joint ([id number]) Coding - 20584 Large joint: 03863 - Large joint ([id number])
[2024-05-06 11:06] VITALS: BMI 38.5
--- OUTSIDE RECORDS SUMMARY | 2024-05-06 13:11 | XMS_ITS | Data Portability ---
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 He needs a pile driver operator barge mounted on the day of the procedure. tmanikantan [...] booked for the same. He needs a pile driver operator barge mounted on the day of the procedure. tmanikantan [...] booked for the same. He needs a pile driver operator barge mounted on the day of the procedure. tmanikantan [...] By Organization Details Last Modified Time 03/18/2019 [id number] He was advised against bed rest lasting longer than four days and to continue activities as tolerated. tmanikantan Not available 03/18/2019 11:38:54 04/14/2019 [id number] He was advised to continue with home exercise program [email or web address] Not available 04/14/2019 11:29:15 He was advised against bed rest lasting longer than four days and to continue activities as tolerated. tmanikantan Not available 04/14/2019 11:29:17 11/10/2019 [id number] He was advised against bed rest lasting [...] care. tmanikantan Not available 11/11/2019 09:59:16 11/04/2020 [id number] He was advised against bed rest lasting longer than four days and to continue activities as tolerated. tmanikantan Not available 11/04/2020 10:10:07 11/08/2020 [id number] He was advised to continue with home [...] w/o contr ast [facility] [place] [facility] Access ion Number : [id number] 4.3 Patiyohan t Name : Jesika Scanlon y Medica l Record Number : [id number] Date of : 1945 Date of Exam : 2019 Referr ing Physic isela : KEM LAZARDaniel, MARTYMarli [facility] ment [address] [place] [address] Exam : MR - LUMBAR SPINE (C-) CPT 35136 - Room Descri ption : [place] Siem Espr 2 1.5 Techni que : [...] ntum flavum thicke ced, facet joint arthro hronda, and promin ent epidur al fat result [...] as well as 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 [facility] [address], [place], [address], 03/18/2019 11:03:23 Result Notes None recorded. 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 Procedures Surgical History Date Name Laterality Status Provider Name and Address Organization Details Recorded Time 11/09/19 21 Lumbar Epidural steroid injection under fluoroscopic guidance completed José Antonio Umanzor MD [address] , [address], [place], [address], [place] [facility] 11/08/2020 11:23:58 04/14/19 20 Lumbar Epidural steroid injection under fluoroscopic guidance completed José Antonio Umanzor MD [address] , [address], [place], [address], [place] [facility] 04/14/2019 11:31:21 08/30/19 16 Lumbar Epidural steroid injection under fluoroscopic guidance completed José Antonio Umanzor MD [address] , [address], [place], [address], [place] [facility] 09/01/2015 13:37:26 05/31/19 16 Lumbar Epidural steroid injection under fluoroscopic guidance completed José Antonio Umanzor MD [address] , [address], [place], [address], [place] [facility] 05/31/2015 14:20:54 11/10/19 15 Lumbar Epidural steroid injection under fluoroscopic guidance completed José Antonio Umanzor MD [address] , [address], [place], [address], [place] [facility] 11/09/2014 14:39:42 08/11/19 15 Lumbar Epidural steroid injection under fluoroscopic guidance completed José Antonio Umanzor MD [address] , [address], [place], [address], [place] [facility] 08/12/2014 14:30:47 12/23/19 13 Lumbar Epidural steroid injection under fluoroscopic guidance completed José Antonio Umanzor MD [address] , [address], [place], [address], [place] [facility] 12/23/2012 14:13:41 11/13/19 13 Lumbar Epidural steroid injection under fluoroscopic guidance completed José Antonio Umanzor MD [address] , [address], [place], [address], [place] [facility] 11/18/2012 13:56:25 Cholecystectomy completed Josephine Fitzpatrick [place] - [facility] 11/05/2012 08:26:57 Appendectomy completed Josephine Fitzpatrick [place] - [facility] 11/05/2012 08:26:57 Imaging Results Imaging Date Name Status LastModified by Organiz ation Details LastModified Time 03/02/2019 MRI, lumbar spine, w/o contrast completed [facility] [address] [place], [address], 03/18/2019 11:09:20 03/02/2019 MRI, lumbar spine, w/o contrast completed [facility] [address], [place], [address], 03/18/2019 11:03:23 Procedure Notes None recorded. Medical [...] saturation in Arterial blood by Pulse oximetry Pain severity - 0-10 verbal numeric rating [Score] - Reported Systolic blood pressure Diastolic blood pressure Provider Name and Address Organization Details Last Updated DateTime 0 170.18 cm 38.7 kg/m2 035291. 32 g 57 /min 98 % 98 % 7 132 mm[Hg] 53 mm[Hg] José Antonio freed MD [address] , [address], [address], [facility] Pain Management 0 10:58:47 Date Recorded Body height Body mass index (BMI) Body weight Heart rate Oxygen saturation Oxygen saturation in Arterial blood by Pulse oximetry Systolic blood pressure Diastolic blood pressure Provider Name and Address Organization Details Last Updated DateTime 0 170.18 cm 38.7 kg/m2 587045. 32 g 56 /min 95 % 95 % 137 mm[Hg] 44 mm[Hg] Lonny freed [facility] Pain Management 0 09:18:40 Date Recorded Body height Heart rate Oxygen saturation Oxygen saturation in Arterial blood by Pulse oximetry Pain severity - 0-10 verbal numeric rating [Score] - Reported Body mass index (BMI) Body weight Systolic blood pressure Diastolic blood pressure Provider Name and Address Organization Details Last Updated DateTime 1 170.18 cm 56 /min 95 % 95 % 7 37.4 kg/m2 366727. 58 g 126 mm[Hg] 44 mm[Hg] José Antonio freed MD [address] , [address], [place], [address], [place] - Pain Management 09:16:16 Date Recorded Body height Heart rate Oxygen saturation Oxygen saturation in Arterial blood by Pulse oximetry Systolic blood pressure Diastolic blood pressure Provider Name and Address Organization Details Last Updated DateTime 1 170.18 cm 52 /min 95 % 95 % 136 mm[Hg] 50 mm[Hg] Kelsey Pattonwell [place] - Pain Management 1 11:04:12 Social History Question Answer Notes LastModified by Organizat ion Details LastModified Time Tobacco Smoking Status Never Smoker Not Available [employer] 12/04/2019 03:16:10 What Is Your Level Of Alcohol Consumption? Occasional [id number] Information not available 12/04/2019 Are You Currently Employed? Yes Retired [id number] Information not available 12/04/2019 Which Illicit Or Recreational Drugs Have You Used? No [id number] Information not available 12/04/2019 Education 12 Information no t available 11/05/2012 Live Alone Or With Others? Alone Information not available 11/05/2012 Marital Status Informatio n not available 11/05/2012 What Was The Date Of Your Most Recent Tobacco Screening? 07/03/2018 [id number] Information not available 12/04/2019 Sex: Unknown Functional Status None recorded. Mental Status None recorded. Family History Nothing Reported. Medical History Condition Response Kidney Stones Y GERD/Reflux Y High Cholesterol Y Hypertension Y Kidney Disease Y Past Encounters Encounter ID Performer Location Encounter Start Date Encounter Closed Date Diagnosis/Indication Diagnosis SNOMED-CT Code Diagnosis ICD10 Code Diagnosis Note [id number] José Antonio Umanzor MD PAIN OFFICE [address] [place] [address] 11/05/2012 07:56:28 11/05/2012 10:46:13 [id number] José Antonio Umanzor MD PAIN OFFICE [address] [place] [address] 11/12/2012 13:06:18 11/18/2012 13:56:45 Displacement of lumbar intervertebral disc without myelopathy 44424739 Lumbosacra l radiculitis 56915442 [id number] [facility] [email or web address] [facility] [place] [address] 12/11/2012 13:25:59 12/11/2012 14:02:08 Displacement of lumbar intervertebral disc without myelopathy 06445999 Lumbosacra l radiculitis 21676218 Spinal priyank nosis of lumbar region 07662892 73369 [facility] [address] [facility] [place] [address] 12/22/2012 11:20:03 12/22/2012 15:24:15 Spinal stenosis of lumbar region 27838125 Displaceme nt of lumbar intervertebral disc without myelopathy 67336434 Lumbosacra l radiculitis 03250331 99361 [facility] [email or web address] [facility] [place] [address] 02/05/2013 13:06:46 02/05/2013 14:50:05 Spinal stenosis of lumbar region 49726607 Displaceme nt of lumbar intervertebral disc without myelopathy 51260830 Lumbosacra l radiculitis 50547252 18623 [facility] PAIN OFF[facility] [email or web address] [facility] [place] [address] 07/26/2014 10:46:47 07/27/2014 09:34:23 Displacement of lumbar intervertebral disc without myelopathy 41040895 Lumbar spondylosis 743468993 Spinal priyank nosis of lumbar region 67422511 45203 [facility] PA[facility] [address] [facility] [place] [address] 08/10/2014 14:16:57 08/12/2014 14:31:26 Spinal stenosis of lumbar region 77727819 Displaceme nt of lumbar intervertebral disc without myelopathy 74714449 Lumbar spondylosis 950980101 Lumbosacra l radiculitis 60978845 81090 [facility] PA[facility] [email or web address] [facility] [place] [place] [address] 09/09/2014 10:46:20 09/09/2014 11:33:07 Spinal stenosis of lumbar region 15110325 Displaceme nt of lumbar intervertebral disc without myelopathy 92407175 Lumbar spondylosis 609381710 Lumbosacra l radiculitis 06482117 05315 [facility] PA[facility] [address] [place] [place] [address] 11/08/2014 10:54:37 11/08/2014 11:26:13 Spinal stenosis of lumbar region 79154016 Displaceme nt of lumbar intervertebral disc without myelopathy 95327955 Lumbar spondylosis 113309351 Lumbosacra l radiculitis 64265585 76200 [facility] [address] [place] [address] 11/09/2014 13:48:33 11/09/2014 15:35:53 Spinal stenosis of lumbar region 70276865 Displaceme nt of lumbar intervertebral disc without myelopathy 60717171 Lumbar spondylosis 765396480 Lumbosacra l radiculitis 76370075 [id number] José Antonio Umanzor MD PAIN OFFICE [address] [place] [address] 05/31/2015 13:54:03 05/31/2015 14:21:27 Spinal stenosis of lumbar region 77735147 M48.06 Displaceme nt of lumbar intervertebral disc without myelopathy 21860152 M51.26 Lumbar spondylosis 48182 0009 M47.26 Lumbosacra l radiculitis 31765801 M54.17 [id number] José Antonio Umanzor MD PAIN OFFICE [address] [place] [address] 08/30/2015 15:22:40 09/01/2015 13:37:55 Spinal stenosis of lumbar region 30528197 M48.06 Displaceme nt of lumbar intervertebral disc without myelopathy 85284988 M51.26 Lumbar spondylosis 27705 0009 M47.26 Lumbosacra l radiculitis 97341950 M54.17 [id number] José Antonio Umanzor MD PAIN OFFICE [address] [place] [address] 06/25/2018 13:43:24 06/25/2018 14:47:03 Degeneration of cervical intervertebral disc 11699013 M50.30 Cervical radiculopathy 37418156 M54.12 [id number] José Antonio Umanzor MD PAIN OFFICE [address] [place] [address] 07/03/2018 13:11:22 07/03/2018 14:17:28 Degeneration of cervical intervertebral disc 02927156 M50.30 Cervical radiculopathy 06453504 M54.12 [id number] José Antonio Umanzor MD PAIN OFFICE [email or web address] [place] [address] [place] [address] 02/26/2019 08:06:35 02/26/2019 08:53:29 Spinal stenosis of lumbar region 70967970 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 91275095 M51.26 Lumbar spondylosis 49014 0009 M47.26 Lumbosacra l radiculitis 52461491 M54.17 [id number] José Antonio Umanzor MD PAIN OFFICE [email or web address] [place] [address] [place] [address] 03/18/2019 10:43:42 03/18/2019 11:40:26 Spinal stenosis of lumbar region 17494460 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 59773605 M51.26 Lumbar spondylosis 25360 0009 M47.26 Lumbosacra l radiculitis 77062120 M54.17 [id number] José Antonio Umanzor MD PAIN OFFICE [address] [facility] [place] [address] 04/14/2019 08:57:30 04/14/2019 14:33:43 Spinal stenosis of lumbar region 03128939 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 92466260 M51.26 Lumbar spondylosis 51755 0009 M47.26 Lumbosacra l radiculitis 18748418 M54.17 [id number] José Antonio Umanzor MD PAIN OFFICE [email or web address] [facility] [place] [address] 11/10/2019 12:09:37 11/11/2019 10:00:07 Spinal stenosis of lumbar region 83006421 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 59518268 M51.26 Lumbar spondylosis 93541 0009 M47.26 Lumbosacra l radiculitis 93349174 M54.17 [id number] José Antonio Umanzor MD [facility] PAIN OFFICE [address] [place] [address] 11/04/2020 09:05:45 11/04/2020 10:13:28 Spinal stenosis of lumbar region 37606342 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 03914067 M51.26 Lumbar spondylosis 01706 0009 M47.26 Lumbosacra l radiculitis 43322586 M54.17 [id number] José Antonio Umanzor MD [facility] PAIN OFFICE [address] [place] [address] 11/08/2020 10:50:37 11/08/2020 11:27:50 Spinal stenosis of lumbar region 86024207 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 92773793 M51.26 Lumbar spondylosis 58666 0009 M47.26 Lumbosacra l radiculitis 34422412 M54.17 Health Concerns Section Related Observation LastModified by Organization Detai ls LastModified Time None Recorded Concern Status LastModified by Organization Details LastModified Time None Recorded Advance Directives Directive None Recorded Payers Encounter Date Sequence Insurance Name Policy Number Policy Nolasco Covered Member ID Nolasco Member ID Guarantor Name 03/18/2019 1 [place] [employer] Jluis Starcheus [id number] Jluis Starcheus 03/18/2019 2 [place] Jluis Starcheus [id number] Jluis Starcheus 04/14/2019 1 [place] [employer] Jluis Starcheus [id number] Jluis Starcheus 04/14/2019 2 [place] Jluis Starcheus [id number] Jluis Starcheus 11/10/2019 1 [place] [employer] Jluis Starcheus [id number] Jluis Starcheus 11/10/2019 2 [place] Jluis Starcheus [id number] Jluis Starcheus 11/04/2020 1 [place] [employer] Jluis Starcheus [id number] Jluis Starcheus 11/04/2020 2 [place] Jluis Starcheus [id number] Jluis Starcheus 11/08/2020 1 [place] [employer] Jluis Starcheus [id number] Jluis Starcheus 11/08/2020 2 [place] [facility] Jluis Starcheus [id number] Jluis Starcheus Notes Date Note Type Note Provider Name [...] few steps. José Antonio Umanzor MD [address] [facility] , [address], [place], [address], [facility] Pain Management 03/18/2019 15:00:19 04/14/2019 text/html He is here today for a lumbar epidural steroid injection under fluoroscopic guidance. José Antonio Umanzor MD [address] [facility] , [address], [place], [address], [facility] - Pain Management 04/14/2019 16:33:15 11/10/2019 text/html [...] also having knee pain and is seeing mobile orthopedic surgeons and is getting injections. José Antonio Umanzor MD [address] [facility] , [address], [place], [address], [facility] Pain Management 11/11/2019 11:16:19 11/04/2020 text/html He is here for a follow up . He continues to have low back pain radiating into right lower extremity. He has been doing physical therapy with some improvement of his pain. He is able to walk without the cane for a few steps. He has been to [facility] . He is discharged from now . [...] also present. José Antonio Umanzor MD [address] , [address], [place], [address], [facility] Pain Management 11/07/2020 09:27:27 11/08/2020 text/html He is here today for a lumbar epidural steroid injection under fluoroscopic guidance. José Antonio Umanzor MD [address] [facility] , [address], [place], [address], [facility] 11/08/2020 15:27:26
--- OUTSIDE RECORDS SUMMARY | 2024-05-06 13:12 | XMS_ITS | Clinical Summary ---
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 5 05/17/2018 Active ULORIC 40 MG tablet Take 40 mg by mouth daily. 1 05/25/2018 Active gabapentin (NEURONTIN) 100 MG capsule Take 100 mg by mouth 2 (two) times a day. 3 06/03/2018 Active hydrALAZINE (APRESOLINE) 25 MG tablet TAKE 1 TABLET BY MOUTH TWICE A DAY WITH FOOD 2 04/17/2018 Active lisinopril (PRINIVIL,ZESTRIL) tablet 40 mg Take 40 mg by mouth daily. 3 05/02/2018 Active metoprolol tartrate (LOPRESSOR) 100 MG tablet Take 100 mg by mouth 2 (two) times a day with meals. 3 05/17/2018 Active pravastatin (PRAVACHOL) tablet 40 mg Take 40 mg by mouth daily. 3 04/23/2018 Active Loratadine 10 MG CAPS Take by mouth. 0 Active moxifloxacin (AVELOX) 400 MG tablet Avelox 400 mg tablet 0 Acti ve citalopram (CeleXA) 40 MG tablet citalopram 40 mg tablet 0 Active clonazePAM (KlonoPIN) 1 MG tablet clonazepam 1 mg tablet 0 Active ibuprofen (ADVIL,MOTRIN) 800 MG tablet ibuprofen 800 mg tablet 0 Active oxyCODONE-acetamino phen (PERCOCET) 5-325 MG per tablet oxycodone-acetaminoph en 5 mg-325 mg tablet 0 Active albuterol (PROAIR HFA) 108 (90 Base) MCG/ACT inhaler ProAir HFA 90 mcg/actuation aerosol inhaler 0 Active traZODone (DESYREL) 100 MG tablet trazodone 100 mg tablet 0 Active Diclofenac Sodium (VOLTAREN) 1 % GEL topical Voltaren 1 % topical gel 0 Active zolpidem (AMBIEN) 10 MG tablet zolpidem 10 mg tablet 0 A ctive QUEtiapine (SEROquel) 50 MG tablet Take 50 mg by mouth every night at bedtime. 1 09/05/2018 Active tamsulosin (FLOMAX) 0.4 MG CAPS Take 0.4 mg by mouth every night at bedtime. 5 10/06/2018 Active QUEtiapine (SEROquel) 100 MG tablet quetiapine 100 mg tablet 0 Active amoxicillin (AMOXIL) 500 MG capsule 0 02/25/2019 Active chlorhexidine (PERIDEX) 0.12 % solution 0 03/20/2019 Active chlorhexidine (PERIDEX) 0.12 % solution chlorhexidine gluconate 0.12 % mouthwash 0 Active omeprazole (PriLOSEC) 20 MG capsule omeprazole 20 mg capsule,delayed release 0 Active oxyCODONE (ROXICODONE) 5 MG immediate release tablet oxycodone 5 mg tablet 0 Act re pantoprazole (PROTONIX) 40 MG tablet Take 40 mg by mouth 2 (two) times a day. 0 08/28/2021 Active sertraline (ZOLOFT) 50 MG tablet Take 1 tablet (50 mg total) by mouth daily. 0 11/07/2021 Active sucralfate (CARAFATE) 1 g tablet Take 1 tablet (1 g total) by mouth 3 (three) times a day. 0 02/13/2022 Active Active Problems Problem Noted Date Diagnosed Date Primary osteoarthritis of both knees 03/07/2022 Arthritis of knee, right 06/18/2018 Arthritis of knee, left 06/18/2018 Social History Tobacco Use Types Packs/Day Years Used Date Smoking Tobacco: Never Smokeless Tobacco: Never Alcohol Use Standard Drinks/Week Comments Yes 2 (1 standard drink = 0.6 oz pur e alcohol) Sex and Gender Information Value Date Recorded Sex Assigned at Not on file Gender Identity Not on file Sexual Orientation Not on file Job Start Date Occupation Industry Not on file Not on file Not on file Last Filed Vital Signs Vital Sign Reading Time Taken Comments Blood Pressure - - Pulse - - Temperature - - Respiratory Rate - - Oxygen Saturation - - Inhaled Oxygen Concentration - - Weight 108.9 kg (240 lb) 06/18/2018 10:33 AM EDT Height 167.6 cm (5' 6 ) 06/18/2018 10:33 AM EDT Body Mass Index 38.74 06/18/2018 10:33 AM EDT Plan of Treatment Health Maintenance Due Date Last Done Comments Hepatitis C Screening 1945 COVID-19 Vaccine (#1) 04/18/1946 Depression Screening 1958 BMI Counseling 1964 Preventative Health Evaluation 1964 DTap / Tdap / Td (1 - Tdap) 1965 Shingrix-Zoster Vaccine (1 of 2) 1996 Fall Risk Assessment 10/19/2011 Pneumococcal Vaccine (1 of 1 - PCV) 10/19/2011 RSV Adult > 60+ Yrs or Pregn ant (1 - 1-dose 75+ series) 2021 Influenza Vaccine (#1) 2023 Hepatitis B Vaccines Aged Out No long er eligible based on patient's age to complete this topic RSV Ped < 20 months Aged Out No longe r eligible based on patient's age to complete this topic Care Teams Theatrical Dresser Relationship Specialty Start Date End Date Tyrell Watts MD PCP - General Internal Medicine 06/04/18
--- OUTSIDE RECORDS SUMMARY | 2024-05-06 13:12 | XMS_ITS | Clinical Summary ---
Author Organization [facility] Address [address] [place] [address] Phone Care Team Providers Care Digestion Operator Name Role Phone Tyrell Watts MD Primary Care Provider [phone] Allergies No known active allergies Medications amLODIPine (NORVASC) 10 mg tablet Take 1 tablet (10 mg total) by mouth 1 (one) time each day. 5 Active gabapentin (NEURONTIN) 100 mg capsule Take 1 capsule (100 mg total) by mouth 2 (two) times a day. 5 Active hydrALAZINE (APRESOLINE) 25 mg tablet Take 1 tablet (25 mg total) by mouth 2 (two) times a day with meals. 5 Active lisinopril (PRINIVIL,ZEST RIL) 40 mg tablet Take 1 tablet (40 mg total) by mouth 1 (one) time each day. for 30 days 5 Active metoprolol tartrate (LOPRESSOR) 100 mg tablet Take 1 tablet (100 mg total) by mouth 2 (two) times a day with meals. 5 Active pravastatin (PRAVACHOL) 40 mg tablet Take 1 tablet (40 mg total) by mouth 1 (one) time each day. 5 Active QUEtiapine (SEROquel) 50 mg tablet Take 1 tablet (50 mg total) by mouth at bedtime. 5 Active zolpidem (AMBIEN) 10 mg tablet Take 1 tablet (10 mg total) by mouth at bedtime as needed. 5 Active pantoprazole (PROTONIX) 40 mg EC tablet Take 1 tablet (40 mg total) by mouth 1 (one) time each day before breakfast. May take additional dose as needed for acid reflux Active celecoxib (CeleBREX) 200 mg capsule Take 1 capsule (200 mg total) by mouth 1 (one) time each day. 04/13/19 Discontinu ed(Entered in Error) sucralfate (CARAFATE) 1 gram tablet Take 2 tablets (2 g total) by mouth 2 (two) times a day before meals. 04/15/19 Discontinu ed(Stop Taking at Discharge) Active Problems Problem Noted Date Diagnosed Date Acute pancreatitis, unspecif ied complication status, unspecified pancreatitis type 04/13/2024 Encounters Date Type Department Care Team Description 04/13/2024 8:48 AM EST - 04/15/2024 12:19 PM EST Emergency [facility] [address] [place] [address] [phone] Varun Barrientos MD Bukalo, Nermina, MD Zipagan, James T, MD Acute pancreatitis, unspecified complication status, unspecified pancreatitis type (Primary Dx) Discharge Disposition: Home-Health Care c from Last 3 Months Surgical History Surgery Date Site/Laterality Comments CHOLECYSTECTOMY PROCEDURE:CHOLECYSTECTOMY APPENDECTOMY PROCEDURE:APPENDECTOMY Medical History Medical History Date Comments Gout DX:Gout High blood pressure DX:High bloo d pressure Social History Tobacco Use Types Packs/Day Years Used Date Smoking Tobacco: Never Smokeless Tobacco: Never Alcohol Use Standard Drinks/Week Comments Yes 2 (1 standard drink = 0.6 oz pur e alcohol) Interpersonal Safety Answer Date Record ed Physical Abuse 04/14/2024 Verbal Abuse 04/14/2024 Sex and Gender Information Value Date Recorded Sex Assigned at Male 04/13/2024 12:24 PM EST Legal Sex Male 7:19 AM EST Gender Identity Male 04/13/2024 12:24 PM EST Sexual Orientation Straight 04/13/2024 12 :24 PM EST Obstetrics History Last Filed Vital Signs Vital Sign Reading Time Taken Comments Blood Pressure 136/54 04/15/2024 11:25 AM EST Pulse 52 04/15/2024 11:25 AM EST Temperature 36.6 ??C (97.8 ??F) 04/15/2024 11:[address] Respiratory Rate 15 04/15/2024 11:25 AM EST Oxygen Saturation 94% 04/15/2024 11:25 AM EST Inhaled Oxygen Concentration - - Weight 109 kg (240 lb) 04/13/2024 2:07 PM EST Height 167.6 cm (5' 6 ) 04/13/2024 6:23 PM EST Body Mass Index 38.74 04/13/2024 2:07 PM EST Plan of Treatment Health Maintenance Due Date Last Done Comments DTaP,Tdap,and Td Vaccines (1 - Tdap) 1965 Pneumococcal Vaccine: 50+ Years (1 of 1 - PCV) 1996 Zoster Vaccines (1 of 2) 1996 RSV Immunization Patients 60+ Years Old (1 - 1-dose 75+ series) 2021 Cholesterol Screening (Lipid Panel) 01/25/2022 Depression Screening 01/25/2022 Hepatitis C Screening 01/25/2022 Medicare Annual Wellness Visit 01/25/2022 Social Influencers of Health Screening 01/25/2022 COVID-19 Vaccine ( season) 2023 12/04/2021, 12/07/2020, 03/26/2020, Additional history exists Influenza Vaccine (#1) 2023 Falls Risk Assessment 04/15/2025 04/15/2024 Hypertension/CHF/CAD Annual BMP Blood Test 04/15/2025 04/15/2024, 04/14/2024, 04/13/2024 HIB Vaccines Aged Out No longer eligi ble based on patient's age to complete this topic HPV Vaccines Aged Out No longer eligi ble based on patient's age to complete this topic Hepatitis A Vaccines Aged Out No long er eligible based on patient's age to complete this topic Hepatitis B Vaccines Aged Out No long er eligible based on patient's age to complete this topic IPV Vaccines Aged Out No longer eligi ble based on patient's age to complete this topic MMR Vaccines Aged Out No longer eligi ble based on patient's age to complete this topic Meningococcal ACWY Vaccine Aged Out N o longer eligible based on patient's age to complete this topic Meningococcal B Vacine Aged Out No lo nger eligible based on patient's age to complete this topic RSV Immunization Patients Under 20 months Aged Out No longer eligible based on patient's age to complete this topic Varicella Vaccines Aged Out No longer eligible based on patient's age to complete this topic Procedures Procedure Name Priority Date/Time Associated Diagnosis Comments ECG OUTSIDE 04/16/2024 MANUAL DIFFERENTIAL - SYSMEX WAM Routine 04/15/2024 6:44 AM EST CBC WITH AUTO DIFFERENTIAL Routine 04/15/2024 6:44 AM EST LIPASE Routine 04/15/2024 6:44 AM EST MAGNESIUM Routine 04/15/2024 6:44 AM EST BASIC METABOLIC PANEL Routine 04/15/2024 6:44 AM EST CBC AND DIFFERENTIAL Routine 04/15/2024 6:44 AM EST LIPASE Add-On 04/14/2024 4:20 AM EST COMPLETE BLOOD COUNT Routine 04/14/2024 4:20 AM EST COMPREHENSIVE METABOLIC PANEL Routine 04/14/2024 4:20 AM EST ECG OUTSIDE 04/14/2024 COREY URINE CULTURE TUBE STAT 04/13/2024 6:30 PM EST URINALYSIS WITH REFLEX MICROSCOPIC AND CULTURE STAT 04/13/2024 6:30 PM EST URINALYSIS WITH REFLEX MICROSCOPIC AND CULTURE STAT 04/13/2024 6:30 PM EST CULTURE BLOOD STAT 04/13/2024 2:58 PM EST MR ABDOMEN WO AND W CONTRAST MRCP STAT 04/13/2024 2:[address] ABDOMEN PELVIS W CONTRAST STAT 04/13/2024 10:56 AM EST TRIGLYCERIDES Add-On 04/13/2024 9:11 AM EST CBC WITH AUTO DIFFERENTIAL STAT 04/13/2024 9:11 AM EST LIPASE STAT 04/13/2024 9:11 AM EST MAGNESIUM STAT 04/13/2024 9:11 AM EST COMPREHENSIVE METABOLIC PANEL STAT 04/13/2024 9:11 AM EST CBC AND DIFFERENTIAL STAT 04/13/2024 9:11 AM EST RESPIRATORY VIRUS PANEL MOLECULAR STUDY STAT 04/13/2024 9:05 AM EST from Last 3 Months Results * ECG-Outside (04/16/2024) Only the most recent of2 resultswithin the time period is included. us Provider Onbase MD ECG ORDERABLES Final Result * (ABNORMAL) Manual differential (04/15/2024 6:44 AM EST) Neutrophils % 56.0 % LAB HEMETOLOGY METHOD 04/15/2024 8:31 AM [facility] Lymphocytes % 16.0 % LAB HEMETOLOGY METHOD 04/15/2024 8:31 AM [facility] Monocytes % 7.0 % LAB HEMETOLOGY METHOD 04/15/2024 8:31 AM [facility] Eosinophils % 21.0 % LAB HEMETOLOGY METHOD 04/15/2024 8:31 AM [facility] Basophils % 0.0 % LAB HEMETOLOGY METHOD 04/15/2024 8:31 AM [facility] Neutrophils Absolute Manual 7.00 1.50 - 7.00 K/mcL LAB HEMETOLOGY METHOD 04/15/2024 8:31 AM [facility] Lymphocytes Absolute 2.00 1.00 - 5.00 K/mcL LAB HEMETOLOGY METHOD 04/15/2024 8:31 AM EST [facility] Monocytes Absolute Manual 0.88 0.20 - 1.00 K/[facility] LAB HEMETOLOGY METHOD 04/15/2024 8:31 AM EST [facility] Eosinophils Absolute Manual 2.63(H) 0.00 - 0.50 K/[facility] LAB HEMETOLOGY METHOD 04/15/2024 8:31 AM EST [facility] Basophils Absolute Manual 0.00 0.00 - 0.20 K/[facility] LAB HEMETOLOGY METHOD 04/15/2024 8:31 AM EST [facility] Rbc Morphology Consistent with indices Consistent with indices, Normal for LAB HEMETOLOGY METHOD 04/15/2024 8:31 AM EST [facility] Platelet Morphology - WAM See Note(A) Normal LAB HEMETOLOGY METHOD 04/15/2024 8:31 AM EST [facility] Comment:PLT: Normal Blood Venous blood specimen / Unknown Venipuncture / Unknown 04/15/2024 6:44 AM EST 04/15/2024 7:30 AM EST us Dorina Garcia [facility] [employer] LAB BLOOD ORDERABLES Final Resul t [facility] [address] [place] [address], * (ABNORMAL) CBC auto differential (04/15/2024 6:44 AM EST) Only the most recent of2 resultswithin the time period is included. WBC 12.5(H) 4.8 - 10.8 K/[facility] LAB HEMETOLOGY METHOD 04/15/2024 8:31 AM EST [facility] RBC 4.30(L) 4.50 - 5.50 M/mcL LAB HEMETOLOGY METHOD 04/15/2024 8:31 AM EST [facility] Hemoglobin 12.1(L) 13.5 - 17.5 g/dL LAB HEMETOLOGY METHOD 04/15/2024 8:31 AM EST [facility] Hematocrit 37.5(L) 42.0 - 54.0 % LAB HEMETOLOGY METHOD 04/15/2024 8:31 AM [facility] MCV 87.4 79.0 - 98.0 FL LAB HEMETOLOGY METHOD 04/15/2024 8:31 AM EST [facility] MCH 28.2 27.0 - 32.0 pcg LAB HEMETOLOGY METHOD 04/15/2024 8:31 AM EST [facility] MCHC 32.3 32.0 - 37.0 g/dL LAB HEMETOLOGY METHOD 04/15/2024 8:31 AM [facility] RDW 15.5(H) 11.0 - 15.0 % LAB HEMETOLOGY METHOD 04/15/2024 8:31 AM [facility] Platelets 165 130 - 400 K/mcL LAB HEMETOLOGY METHOD 04/15/2024 8:31 AM [facility] MPV 13.6(H) 7.0 - 11.0 FL LAB HEMETOLOGY METHOD 04/15/2024 8:31 AM [facility] NRBC 0.0 <1.0 % LAB HEMETOLOGY METHOD 04/15/2024 8:31 AM [facility] NRBC Absolute 0.00 <0.10 K/mcL LAB HEMETOLOGY METHOD 04/15/2024 8:31 AM [facility] Blood Venous blood specimen / Unknown Venipuncture / Unknown 04/15/2024 6:44 AM EST 04/15/2024 7:30 AM EST us Dorina Garcia NP LAB BLOOD ORDERABLES Final Resul t [facility] [address] [place] [address], [place] [phone] * Magnesium (04/15/2024 6:44 AM EST) Only the most recent of2 resultswithin the time period is included. Magnesium 1.9 1.9 - 2.6 mg/dL LAB CHEMISTRY METHOD 04/15/2024 8:05 AM EST [facility] Blood Venous blood specimen / Unknown Venipuncture / Unknown 04/15/2024 6:44 AM EST 04/15/2024 7:30 AM EST Dorina Garcia NP LAB BLOOD ORDERABLES Final Resul t Performing Organization Address [facility] Co de Phone Number [facility] [address] [place] [address], [place] [phone] * Lipase (04/15/2024 6:44 AM EST) Only the most recent of3 resultswithin the time period is included. Pathologist [facility] Lipase 40 13 - 75 unit/L LAB CHEMISTRY METHOD 04/15/2024 8:13 AM EST [facility] Blood Venous blood specimen / Unknown Venipuncture / Unknown 04/15/2024 6:44 AM EST 04/15/2024 7:30 AM EST us Dorina Garcia NP LAB BLOOD ORDERABLES Final Resul t [facility] [address] [place] [address], [place] [phone] * (ABNORMAL) Basic metabolic panel (04/15/2024 6:44 AM EST) Pathologist [facility] Sodium 142 133 - 145 mmol/L LAB CHEMISTRY METHOD 04/15/2024 8:05 AM EST [facility] Potassium 4.4 3.5 - 5.5 mmol/L LAB CHEMISTRY METHOD 04/15/2024 8:05 AM EST [facility] Chloride 109 96 - 110 mmol/L LAB CHEMISTRY METHOD 04/15/2024 8:05 AM [facility] CO2 22 21 - 32 mmol/L LAB CHEMISTRY METHOD 04/15/2024 8:05 AM [facility] Anion Gap 11 3 - 11 LAB CHEMISTRY METHOD 04/15/2024 8:05 AM [facility] Glucose 68(L) 70 - 100 mg/dL LAB CHEMISTRY METHOD 04/15/2024 8:05 AM [facility] BUN 17 5 - 25 mg/dL LAB CHEMISTRY METHOD 04/15/2024 8:05 AM [facility] Creatinine 1.34(H) 0.70 - 1.30 mg/dL LAB CHEMISTRY METHOD 04/15/2024 8:05 AM [facility] eGFR 55(L) >=60 mL/min/1. 73m2 LAB CHEMISTRY METHOD 04/15/2024 8:05 AM [facility] Comment:Calculation based on the??Chronic Kidney Disease Epidemiology Collaboration (CKD-EPI) equation refit??without adjustment for race. BUN/Creatinine Ratio 12.7 LAB CHEMISTRY METHOD 04/15/2024 8:05 AM [facility] Calcium 9.1 8.5 - 10.5 mg/dL LAB CHEMISTRY METHOD 04/15/2024 8:05 AM [facility] Blood Venous blood specimen / Unknown Venipuncture / Unknown 04/15/2024 6:44 AM EST 04/15/2024 7:30 AM EST us Dorina Garcia NP LAB BLOOD ORDERABLES Final Resul t [facility] [address] [place] [address], [place] [phone] * (ABNORMAL) Complete blood count (04/14/2024 4:20 AM EST) WBC 14.8(H) 4.8 - 10.8 K/mcL LAB HEMETOLOGY METHOD 04/14/2024 6:00 AM [facility] RBC 4.60 4.50 - 5.50 M/mcL LAB HEMETOLOGY METHOD 04/14/2024 6:00 AM [facility] Hemoglobin 12.8(L) 13.5 - 17.5 g/dL LAB HEMETOLOGY METHOD 04/14/2024 6:00 AM [facility] Hematocrit 39.4(L) 42.0 - 54.0 % LAB HEMETOLOGY METHOD 04/14/2024 6:00 AM [facility] MCV 85.5 79.0 - 98.0 FL LAB HEMETOLOGY METHOD 04/14/2024 6:00 AM [facility] MCH 27.8 27.0 - 32.0 pcg LAB HEMETOLOGY METHOD 04/14/2024 6:00 AM [facility] MCHC 32.5 32.0 - 37.0 g/dL LAB HEMETOLOGY METHOD 04/14/2024 6:00 AM [facility] RDW 15.5(H) 11.0 - 15.0 % LAB HEMETOLOGY METHOD 04/14/2024 6:00 AM [facility] Platelets 170 130 - 400 K/mcL LAB HEMETOLOGY METHOD 04/14/2024 6:00 AM [facility] MPV 14.0(H) 7.0 - 11.0 FL LAB HEMETOLOGY METHOD 04/14/2024 6:00 AM [facility] NRBC 0.0 <1.0 % LAB HEMETOLOGY METHOD 04/14/2024 6:00 AM [facility] NRBC Absolute 0.00 <0.10 K/mcL LAB HEMETOLOGY METHOD 04/14/2024 6:00 AM [facility] Blood Venous blood specimen / Unknown Venipuncture / Unknown 04/14/2024 4:20 AM EST 04/14/2024 5:36 AM EST us Iris Ham MD LAB BLOOD ORDERABLES Final Res ult [facility] [address] [place] [address], [place] [phone] * (ABNORMAL) Comprehensive metabolic panel (04/14/2024 4:20 AM EST) Only the most recent of2 resultswithin the time period is included. Sodium 139 133 - 145 mmol/L LAB CHEMISTRY METHOD 04/14/2024 6:48 AM [facility] Potassium 4.2 3.5 - 5.5 mmol/L LAB CHEMISTRY METHOD 04/14/2024 6:48 AM [facility] Chloride 110 96 - 110 mmol/L LAB CHEMISTRY METHOD 04/14/2024 6:48 AM [facility] CO2 21 21 - 32 mmol/L LAB CHEMISTRY METHOD 04/14/2024 6:48 AM [facility] Anion Gap 8 3 - 11 LAB CHEMISTRY METHOD 04/14/2024 6:48 AM [facility] Glucose 75 70 - 100 mg/dL LAB CHEMISTRY METHOD 04/14/2024 6:48 AM [facility] BUN 27(H) 5 - 25 mg/dL LAB CHEMISTRY METHOD 04/14/2024 6:48 AM [facility] Creatinine 1.68(H) 0.70 - 1.30 mg/dL LAB CHEMISTRY METHOD 04/14/2024 6:48 AM [facility] eGFR 42(L) >=60 mL/min/1. 73m2 LAB CHEMISTRY METHOD 04/14/2024 6:48 AM [facility] Comment:Calculation based on the??Chronic Kidney Disease Epidemiology Collaboration (CKD-EPI) equation refit??without adjustment for race. BUN/Creatinine Ratio 16.1 LAB CHEMISTRY METHOD 04/14/2024 6:48 AM [facility] Calcium 9.0 8.5 - 10.5 mg/dL LAB CHEMISTRY METHOD 04/14/2024 6:48 AM [facility] AST (SGOT) 98(H) 10 - 42 unit/L LAB CHEMISTRY METHOD 04/14/2024 6:48 AM [facility] Comment:Results verified by repeat testing ALT (SGPT) 92(H) 10 - 60 unit/L LAB CHEMISTRY METHOD 04/14/2024 6:48 AM [facility] Comment:Results verified by repeat testing Alkaline Phosphatase 287(H) 42 - 121 unit/L LAB CHEMISTRY METHOD 04/14/2024 6:48 AM [facility] Total Protein 6.0 6.0 - 8.0 g/dL LAB CHEMISTRY METHOD 04/14/2024 6:48 AM [facility] Albumin 3.0(L) 3.2 - 5.0 g/dL LAB CHEMISTRY METHOD 04/14/2024 6:48 AM [facility] Total Bilirubin 0.9 0.0 - 1.4 mg/dL LAB CHEMISTRY METHOD 04/14/2024 6:48 AM [facility] Blood Venous blood specimen / Unknown Venipuncture / Unknown 04/14/2024 4:20 AM EST 04/14/2024 5:36 AM EST us Iris Ham MD LAB BLOOD ORDERABLES Final Res ult [facility] [address] [place] [address], * (ABNORMAL) Urinalysis with reflex microscopic and culture (04/13/2024 6:30 PM EST) Specific [place] Urine 1.039(H) 1.003 - 1.030 LAB URINALYSIS - AUTOMATED METHOD 04/13/2024 7:10 PM [facility] pH, Urine 5.5 5.0 - 8.0 pH LAB URINALYSIS - AUTOMATED METHOD 04/13/2024 7:10 PM [facility] Leukocytes, Urine Negative Negative LAB URINALYSIS - AUTOMATED METHOD 04/13/2024 7:10 PM [facility] Nitrite, Urine Negative Negative LAB URINALYSIS - AUTOMATED METHOD 04/13/2024 7:10 PM [facility] Protein, Urine Negative <=Trace mg/dL LAB URINALYSIS - AUTOMATED METHOD 04/13/2024 7:10 PM [facility] Glucose, Urine Negative Negative mg/dL LAB URINALYSIS - AUTOMATED METHOD 04/13/2024 7:10 PM [facility] Ketones, Urine Negative Negative mg/dL LAB URINALYSIS - AUTOMATED METHOD 04/13/2024 7:10 PM [facility] Urobilinogen, Urine 0.2 0.2 - 1.0 mg/dL LAB URINALYSIS - AUTOMATED METHOD 04/13/2024 7:10 PM [facility] Bilirubin, Urine Negative Negative LAB URINALYSIS - AUTOMATED METHOD 04/13/2024 7:10 PM [facility] Blood, Urine Negative Negative LAB URINALYSIS - AUTOMATED METHOD 04/13/2024 7:10 PM [facility] Urine Urine specimen obtained by clean catch procedure / Unknown Non-blood Collection / Unknown 04/13/2024 6:30 PM EST 04/13/2024 6:47 PM EST us Katherine CARY LAB URINE ORDERABLES F inal Result [facility] [address] [place] [address], * Corey urine culture tube (04/13/2024 6:30 PM EST) Extra Tube Hold for add-ons. 04/13/2024 8:02 PM EST [facility] Comment:Auto resulted. Urine Urine specimen obtained by clean catch procedure / Unknown Non-blood Collection / Unknown 04/13/2024 6:30 PM EST 04/13/2024 6:47 PM EST [employer] [facility] [employer] LAB URINE ORDERABLES F inal Result [facility] [address] [place] [address], [place] [phone] * (ABNORMAL) Blood Culture, Peripheral #2 (04/13/2024 2:58 PM EST) Pathologist [facility] Culture, Blood Fusobacterium species(AA) 04/21/2024 2:58 PM EST [facility] Comment: This is an appended report. These results have been appended to a previously final verified report. Gram Stain Result Anaerobic bottle Gram negative bacilli(AA) 04/21/2024 2:58 PM EST [facility] Comment:This is an appended report. These results have been appended to a previously final verified report. Blood Venous blood specimen / Unknown Venipuncture / Unknown 04/13/2024 2:58 PM EST 04/13/2024 3:41 PM EST Narrative [facility] - 04/21/2024 2:58 PM EST Anaerobic susceptibilty testing is not routinely performed, if further therapeutic inforamation is required, please consult an Infectious Disease Specialist. Katherine [facility] LAB MICROBIOLOGY - GEN ERAL ORDERABLES Edited Result - Final [facility] [address] [place] [address], [place] [phone] * MR Abdomen wo and w Contrast MRCP (04/13/2024 2:21 PM EST) Anatomical Region Laterality Modality Body Magnetic Resonan ce 04/13/2024 3:06 PM EST Impressions 04/13/2024 3:20 PM EST 1. ??No MRI evidence of pancreatitis. 2. ??Cholecystectomy. ??Mild intra and extrahepatic biliary ductal dilatation. ??Given the limitations imposed by motion on MRCP images, no ductal filling defect or mass. 3. ??Small amount of perihepatic ascites. 4. ??Multiple bilateral renal cortical cysts. ??There is suggestion of thin internal septations without mural nodularity within one of the cysts on the left (Bosniak 2F). ??Given the location of the cyst, it is likely to the well-visualized with ultrasound, which would provide an easier modality for follow-up of this finding. -------- FINAL REPORT -------- Dictated By: Aj Vega Dictated Date: 04/13/2024 15:06 ET Assigned Physician: Aj Vega Reviewed and Electronically Signed By: Aj Vega Signed Date: 04/13/2024 15:20 ET Workstation ID: [id number] Transcribed By: Self Edit Transcribed Date: 04/13/2024 15:06 ET Narrative 04/13/2024 3:20 PM EST PROCEDURE: Contrast enhanced MRI of the abdomen with MRCP. HISTORY: Pancreatitis suspected. TECHNIQUE: Multiplanar multisequence MRI of the abdomen with and without intravenous contrast administration. ??MRCP was also performed, with multiple reformats. IV contrast dose: 20 mL intravenous Dotarem from a 20 mL vial with 0 mL discarded COMPARISON: CT abdomen and pelvis 04/13/2024. FINDINGS: LOWER THORAX: Normal. LIVER: Small amount of perihepatic ascites. ??No focal lesion. ??No evidence of steatosis on out of phase imaging. ??The portal and hepatic veins are patent. BILIARY: Cholecystectomy. ??Mild intrahepatic and extrahepatic biliary ductal dilatation. ??The MRCP images are limited by motion, but there is no visible ductal filling defect. PANCREAS: No focal lesion. ??No ductal dilatation. ??No peripancreatic inflammatory change. SPLEEN: Normal. ADRENAL GLANDS: Normal. KIDNEYS: Moderate bilateral cortical atrophy. ??Multiple bilateral cortical cysts, with the largest exophytic from the lower pole of the right kidney measuring 4.1 cm. ??Suggestion of thin enhancing septations associated with a 2.8 cm lesion exophytic from the anterolateral interpolar left kidney (series 15, image 40) without mural nodularity. ??Visible portions of the collecting systems are normal. RETROPERITONEUM: No mass or lymphadenopathy. VASCULATURE: No aneurysm. BOWEL/MESENTERY: Colonic diverticulosis. ABDOMINAL WALL: Visible portions are normal. BONES: Multilevel degenerative changes of the spine with Modic endplate changes and at least one incompletely characterized significant spinal stenosis in the lumbar region. ??No visible bony lesion. Procedure Note Aj Vega MD - 04/13/2024 PROCEDURE: Contrast enhanced MRI of the abdomen with MRCP. HISTORY: Pancreatitis suspected. TECHNIQUE: Multiplanar multisequence MRI of the abdomen with and withoutintravenous contrast administration. MRCP was also performed, withmultiple reformats. IV contrast dose: 20 mL intravenous Dotarem from a 20 mL vial with 0 mLdiscarded COMPARISON: CT abdomen and pelvis 04/13/2024. FINDINGS: LOWER THORAX: Normal. LIVER: Small amount of perihepatic ascites. No focal lesion. No evidenceof steatosis on out of phase imaging. The portal and hepatic veins arepatent. BILIARY: Cholecystectomy. Mild intrahepatic and extrahepatic biliaryductal dilatation. The MRCP images are limited by motion, but there is novisible ductal filling defect. PANCREAS: No focal lesion. No ductal dilatation. No peripancreaticinflammatory change. SPLEEN: Normal. ADRENAL GLANDS: Normal. KIDNEYS: Moderate bilateral cortical atrophy. Multiple bilateral corticalcysts, with the largest exophytic from the lower pole of the right kidneymeasuring 4.1 cm. Suggestion of thin enhancing septations associated witha 2.8 cm lesion exophytic from the anterolateral interpolar left kidney(series 15, image 40) without mural nodularity. Visible portions of thecollecting systems are normal. RETROPERITONEUM: No mass or lymphadenopathy. VASCULATURE: No aneurysm. BOWEL/MESENTERY: Colonic diverticulosis. ABDOMINAL WALL: Visible portions are normal. BONES: Multilevel degenerative changes of the spine with Modic endplatechanges and at least one incompletely characterized significant spinalstenosis in the lumbar region. No visible bony lesion. IMPRESSION: 1. No MRI evidence of pancreatitis. 2. Cholecystectomy. Mild intra and extrahepatic biliary ductaldilatation. Given the limitations imposed by motion on MRCP images, noductal filling defect or mass. 3. Small amount of perihepatic ascites. 4. Multiple bilateral renal cortical cysts. There is suggestion of thininternal septations without mural nodularity within one of the cysts onthe left (Bosniak 2F). Given the location of the cyst, it is likely tothe well-visualized with ultrasound, which would provide an easiermodality for follow-up of this finding. -------- FINAL REPORT -------- Dictated By: Aj Vega Dictated Date: 04/13/2024 15:06 ET Assigned Physician: Aj Vega Reviewed and Electronically Signed By: Aj Vega Signed Date: 04/13/2024 15:20 ET Workstation ID: [id number] Transcribed By: Self Edit Transcribed Date: 04/13/2024 15:06 ET Katherine CARY IMG MRI PROCEDURES Fin al Result * CT Abdomen Pelvis w Contrast (04/13/2024 10:56 AM EST) Anatomical Region Laterality Modality Body Computed Tomogra phy 04/13/2024 11:0 7 AM EST Impressions 04/13/2024 11:17 AM EST Infectious or inflammatory enteritis. ??Small ascites. ??No abscess or free air. Cholecystectomy. ??Increased biliary duct dilatation without obstructing stone or mass detected by CT. ??MRCP could evaluate further if clinically indicated. Enlarged prostate. -------- FINAL REPORT -------- Dictated By: PRABHU KENT Dictated Date: 04/13/2024 11:07 ET Assigned Physician: PRABHU KENT Reviewed and Electronically Signed By: PRABHU KENT Signed Date: 04/13/2024 11:17 ET Workstation ID: [id number] Transcribed By: Self Edit Transcribed Date: 04/13/2024 11:07 ET Narrative 04/13/2024 11:17 AM EST PROCEDURE: CT ABDOMEN/PELVIS INDICATION: Pain TECHNIQUE: CT of the abdomen and pelvis following the intravenous administration of 90cc Isovue 370. Multiplanar reformats. The examination was performed utilizing dose reduction techniques. Total DLP 1460 COMPARISON: ??02/02/2022 FINDINGS: ?? LOWER THORAX: Bibasilar atelectasis. ??Moderate coronary artery calcifications. HEPATOBILIARY: No focal liver lesions. ??Increased biliary duct dilatation status post cholecystectomy. ??No obstructing stone or mass seen by CT. SPLEEN: No splenomegaly. PANCREAS: No focal mass or ductal dilatation. ADRENALS: No nodules. KIDNEYS/URETERS: No hydronephrosis, stones, or solid mass. ??Bilateral cysts. PELVIC ORGANS/BLADDER: Enlarged prostate. ??Bladder is unremarkable. PERITONEUM / RETROPERITONEUM: Small ascites. ??No free intraperitoneal air or fluid collection. ??No retroperitoneal or mesenteric lymphadenopathy. VESSELS: Abdominal aorta is normal in size. ??Portal vein is patent. GI TRACT: Scattered wall thickening throughout the small bowel with small ascites. ??No bowel obstruction. ??Appendix is not visualized. ??No evidence of appendicitis in the right lower quadrant. ??Colonic diverticulosis. BONES AND SOFT TISSUES: Small fat-containing left greater than right inguinal hernias. ??Degenerative changes seen throughout the bones. Procedure Note Prabhu Kent MD - 04/13/2024 PROCEDURE: CT ABDOMEN/PELVIS INDICATION: Pain TECHNIQUE: CT of the abdomen and pelvis following the intravenousadministration of 90cc Isovue 370. Multiplanar reformats. The examinationwas performed utilizing dose reduction techniques. Total DLP 1460 COMPARISON: 02/02/2022 FINDINGS: LOWER THORAX: Bibasilar atelectasis. Moderate coronary arterycalcifications. HEPATOBILIARY: No focal liver lesions. Increased biliary duct dilatationstatus post cholecystectomy. No obstructing stone or mass seen by CT. SPLEEN: No splenomegaly. PANCREAS: No focal mass or ductal dilatation. ADRENALS: No nodules. KIDNEYS/URETERS: No hydronephrosis, stones, or solid mass. Bilateralcysts. PELVIC ORGANS/BLADDER: Enlarged prostate. Bladder is unremarkable. PERITONEUM / RETROPERITONEUM: Small ascites. No free intraperitoneal airor fluid collection. No retroperitoneal or mesenteric lymphadenopathy. VESSELS: Abdominal aorta is normal in size. Portal vein is patent. GI TRACT: Scattered wall thickening throughout the small bowel with smallascites. No bowel obstruction. Appendix is not visualized. No evidenceof appendicitis in the right lower quadrant. Colonic diverticulosis. BONES AND SOFT TISSUES: Small fat-containing left greater than rightinguinal hernias. Degenerative changes seen throughout the bones. IMPRESSION: Infectious or inflammatory enteritis. Small ascites. No abscess or freeair. Cholecystectomy. Increased biliary duct dilatation without obstructingstone or mass detected by CT. MRCP could evaluate further if clinicallyindicated. Enlarged prostate. -------- FINAL REPORT -------- Dictated By: PRABHU KENT Dictated Date: 04/13/2024 11:07 ET Assigned Physician: PRABHU KENT Reviewed and Electronically Signed By: PRABHU KENT Signed Date: 04/13/2024 11:17 ET Workstation ID: [id number] Transcribed By: Self Edit Transcribed Date: 04/13/2024 11:07 ET Katherine CARY IMG CT PROCEDURES Velvet l Result * Triglycerides (04/13/2024 9:11 AM EST) [facility] Triglycerides 134 0 - 150 mg/dL LAB CHEMISTRY METHOD 04/13/2024 3:58 PM EST [facility] Blood Venous blood specimen / Unknown Venipuncture / Unknown 04/13/2024 9:11 AM EST 04/13/2024 9:20 AM EST Jeanne CARY LAB BLOOD ORDERABLES Fi nal Result [facility] [address] [place] [address], * Respiratory virus panel molecular study (04/13/2024 9:05 AM EST) [facility] Adenovirus Detection by PCR Not Detected Not Detected LAB MICROBIOLOGY METHOD 04/13/2024 10:13 AM EST [facility] Influenza A PCR Not Detected Not Detected LAB MICROBIOLOGY METHOD 04/13/2024 10:13 AM [facility] Influenza B PCR Not Detected Not Detected LAB MICROBIOLOGY METHOD 04/13/2024 10:13 AM [facility] Coronavirus 229E Not Detected Not Detected LAB MICROBIOLOGY METHOD 04/13/2024 10:13 AM [facility] Coronavirus HKU1 Not Detected Not Detected LAB MICROBIOLOGY METHOD 04/13/2024 10:13 AM [facility] Coronavirus OC43 Not Detected Not Detected LAB MICROBIOLOGY METHOD 04/13/2024 10:13 AM [facility] Coronavirus NL63 Not Detected Not Detected LAB MICROBIOLOGY METHOD 04/13/2024 10:13 AM [facility] Parainfluenza Virus 1 Not Detected Not Detected LAB MICROBIOLOGY METHOD 04/13/2024 10:13 AM [facility] Parainfluenza Virus 2 Not Detected Not Detected LAB MICROBIOLOGY METHOD 04/13/2024 10:13 AM [facility] Parainfluenza Virus 3 Not Detected Not Detected LAB MICROBIOLOGY METHOD 04/13/2024 10:13 AM [facility] Parainfluenza Virus 4 Not Detected Not Detected LAB MICROBIOLOGY METHOD 04/13/2024 10:13 AM [facility] RSV PCR Not Detected Not Detected LAB MICROBIOLOGY METHOD 04/13/2024 10:13 AM [facility] Human Metapneumovirus A and B Not Detected Not Detected LAB MICROBIOLOGY METHOD 04/13/2024 10:13 AM [facility] Rhinovirus/Entero virus Not Detected Not Detected LAB MICROBIOLOGY METHOD 04/13/2024 10:13 AM [facility] Bordetella pertussis Not Detected Not Detected LAB MICROBIOLOGY METHOD 04/13/2024 10:13 AM [facility] Bordetella parapertussis Not Detected Not Detected LAB MICROBIOLOGY METHOD 04/13/2024 10:13 AM EST [facility] Mycoplasma pneumo by PCR Not Detected Not Detected LAB MICROBIOLOGY METHOD 04/13/2024 10:13 AM [facility] Chlamydia pneumoniae Not Detected Not Detected LAB MICROBIOLOGY METHOD 04/13/2024 10:13 AM [facility] SARS COV-2 Not Detected Not Detected LAB MICROBIOLOGY METHOD 04/13/2024 10:13 AM [facility] Swab Both anterior nares / Unknown Non-blood Collection / Unknown 04/13/2024 9:05 AM EST 04/13/2024 9:20 AM EST [facility] - 04/13/2024 10:13 AM EST Testing was performed using the [employer] Respiratory Pathogen PCR Assay. All results must be correlated with the clinical findings. Results should not be used as the sole basis for diagnosis. False Negative results may occur from the presence of sequence variants in the region targeted by the assay or the presence of inhibitors. Results may be affected by concurrent antiviral/antimicrobial therapy or levels of organisms that are below the limit of detection. Varun Barrientos MD LAB MICROBIOLOGY - GENERAL ORD ERABLES Final Result [facility] [address] [place] [address], from Last 3 Months Insurance * Guarantor: Jluis Murrieta Account Type Relation to Patient Date of Phone Billing Address Personal/Family Self [address] [place] [address] [place]IC[place] Advance Directives * Full Code - Default (Latest Code Status on File) Date Activated Date Inactivated Comments 04/13/2024 3:27 PM 04/15/2024 2:30 PM This is orde r is used when code status has not been discussed with the patient, or code status is otherwise unknown/unconfirmed To update the patient's code status, place a code status order. Do not modify or discontinue any currently active code status orders. Care Teams Digestion Operator Relationship Specialty Start Date End Date Tyrell Watts MD [address] [place] [id number] PCP - General Internal Medicine 02/01/21
--- OUTSIDE RECORDS SUMMARY | 2024-05-06 13:12 | XMS_ITS | Encounter Summary ---
Author Organization [facility] Address [address] [place] [address] Care Team Providers Care Ballpoint Pen Cartridge Tester Name Role Phone Tyrell Watts MD Primary Care Provider [phone] Reason for Visit * Reason Comments Vomiting * Auth/Cert (Routine) Specialty Diagnoses / Procedures Referred By Dasia cooley Referred To Contact Diagnoses Acute pancreatitis, unspecified complication status, unspecified pancreatitis type Procedures . Iris Ham MD [address] [place] [address] Phone: tel: fax: [facility] [address] [place] [address] Phone: tel: Referral ID Status Reason Start Date Expiration Date Visits Re quested Visits Authorized [id number] 1 1 Encounter Details Date Type Department Care Team (Late st Contact Info) Description 04/13/2024 8:48 AM EST - 04/15/2024 12:19 PM EST Emergency [facility] [address] [place] [address] Varun Barrientos MD [address] [place] [phone] Iirs Ham MD [address] [place] [address] Javi Ferrell MD [address] [place] [id number] Acute pancreatitis, unspecified complication status, unspecified pancreatitis type (Primary Dx) Discharge Disposition: Home-Health Care Svc Social History Tobacco Use Types Packs/Day Years [...] Orientation Straight 04/13/2024 12 :24 PM EST documented as of this encounter Last Filed Vital Signs Vital Sign Reading [...] Mass Index 38.74 04/13/2024 2:07 PM EST documented in this encounter Discharge Instructions * Attachments The following attachments cannot be sent through Care Everywhere. * Pancreatitis: Acute: General Info (Iraqi) documented in this encounter Medications at Time of Discharge amLODIPine (NORVASC) 10 mg tablet Take 1 tablet (10 mg total) by mouth 1 (one) time each day. 02/23/2024 gabapentin (NEURONTIN) 100 mg capsule Take 1 capsule (100 mg total) by mouth 2 (two) times a day. 02/24/2024 hydrALAZINE (APRESOLINE) 25 mg tablet Take 1 tablet (25 mg total) by mouth 2 (two) times a day with meals. 03/22/2024 lisinopril (PRINIVIL,ZESTRI L) 40 mg tablet Take 1 tablet (40 mg total) by mouth 1 (one) time each day. for 30 days 02/19/2024 metoprolol tartrate (LOPRESSOR) 100 mg tablet Take 1 tablet (100 mg total) by mouth 2 (two) times a day with meals. 02/20/2024 pantoprazole (PROTONIX) 40 mg EC tablet Take 1 tablet (40 mg total) by mouth 1 (one) time each day before breakfast. May take additional dose as needed for acid reflux pravastatin (PRAVACHOL) 40 mg tablet Take 1 tablet (40 mg total) by mouth 1 (one) time each day. 04/05/2024 QUEtiapine (SEROquel) 50 mg tablet Take 1 tablet (50 mg total) by mouth at bedtime. 03/20/2024 zolpidem (AMBIEN) 10 mg tablet Take 1 tablet (10 mg total) by mouth at bedtime as needed. 04/03/2024 documented as of this encounter Discharge Disposition Disposition Code Departure Means Destination Comment s Home-Health Care [facility] Walk-out Home documented in this encounter Progress Notes * Erendira Orozco RN - 04/15/2024 12:19 PM EST 04/15/24 1219 Initial Transition Plan Initial Transition Plan Home Health Care Discharge Planning Living Arrangements Alone Type of Residence Private residence Assistive Devices Walker;Cane;Dentures upper;Dentures lower Support Systems Children;Caregiver Anticipated Discharge Needs Discipline following for SNF placement Residential Treatment CounselorOutreach Rep Transportation at discharge Family What day is the transport expected? 04/15/24 Final Discharge Disposition Home Health Care Services Pt discharged home with Terence RUVALCABA, accepted in [facility] and notified pt will be d/c today. * Iris Ham MD - 04/15/2024 12:19 PM EST I was notified by the microbiology lab that patient grew Fusobacterium however blood cultures were dormant for more than 5 days. I have personally reviewed medical records. Patient was admitted with enteritis and some mild pancreatitis. He never had fever or chills but did have some leukocytosis with event which eventually improved without antibiotic treatment. There was no pancreatic abscess or necrotizing pancreatitis. There was no evidence of infectious process anywhere else. There was just evidence of mild enteritis. Patient was called at home. He is feeling fine he denies any fever chills nausea vomiting or diarrhea. I have instructed patient that if he starts having more abdominal pain or fever that he should comeback to emergency room immediately otherwise he should give him some some time to heal and I also advised him to eat strictly cooked food. My opinion the Fusobacterium did grow beyond 5 days is likely a contaminant. Did see his primary care physician yesterday. * Steffanie Rojas - 04/15/2024 10:48 AM EST [facility] Physical Therapy Evaluation & Treatment PT Discharge Recommendations: Home PT Staff Recommendations for safe patient handling: supervision ambulation AM-PAC 6 Clicks Scoring Form: Unable: 1 A Lot: 2 A Little: 3 None: 4 How much difficulty does the patient currently have? Turning over in bed (including adjustment of bedclothes, sheets, and blankets) [] [] [] [x] Sitting down on and standing up from a chair with arms (wheelchair, bedside commode etc [] [] [] [x] Moving from lying on back to sitting on the side of the bed [] [] [] [x] How much help from another person does the patient currently need? Moving to and from a bed to a chair ( including a wheelchair) [] [] [] [x] To walk in hospital room [] [] [x] [] Climbing 3-5 steps with a railing [x] [] [] [] Score: 20 /24 score indicates the pt is appropriate for discharge home with therapy recommendation above Precautions Medical Precautions: Fall Risk RUE Weight Bearing Status: Full LUE Weight Bearing Status: Full RLE Weight Bearing Status: Full LLE Weight Bearing Status: Full Fall prevention education provided including use of call light in hospital, use of appropriate assistive device, safe mobility techniques, and safety measures at home. PT Received On: 04/15/24 PT Start Time: 0730 PT Stop Time: 0800 PT Time Calculation (min): 30 min General Family/Caregiver Present: No Precautions Medical Precautions: Fall Risk RUE Weight Bearing Status: Full LUE Weight Bearing Status: Full RLE Weight Bearing Status: Full LLE Weight Bearing Status: Full Cognition Overall Cognitive Status: Within Functional Limits Arousal/Alertness: Appropriate responses to stimuli Orientation Level: Oriented X4 Following Commands: Follows one step commands with increased time, Follows one step commands with repetition Safety Judgment: Good awareness of safety precautions Hearing: Intact Vision: Intact Speech: Intact Integumentary: intact History of Present Illness: Patient is a 78 y.o. male admitted to [facility] on 04/13/2024. Patient Active Problem List Diagnosis Acute pancreatitis, unspecified complication status, unspecified pancreatitis type Past Medical History: Diagnosis Date Gout DX:Gout High blood pressure DX:High blood pressure Past Surgical History: Procedure Laterality Date APPENDECTOMY PROCEDURE:APPENDECTOMY CHOLECYSTECTOMY PROCEDURE:CHOLECYSTECTOMY Social History Home Living Environment: Home Living Type of Home: Apartment Lives With: Alone Home Adaptive Equipment: Walker - rolling Home Layout: One level Home Access: Elevator Prior Function Level of [place]: Independent with mobility and functional transfers Ambulation Status: Household ambulator Receives Help From: Family Indoor Mobility Assistance: Independent Stairs Assistance : Not Applicable Prior Device Use: Walker Which is your dominant hand?: Right General Assessment 04/15/24 0730 PT Last Visit PT Received On 04/15/24 General Family/Caregiver Present No PT Time Calculation PT Start Time 0730 PT Stop Time 0800 PT Time Calculation (min) 30 min Precautions Medical Precautions Fall Risk RUE Weight Bearing Status Full LUE Weight Bearing Status Full RLE Weight Bearing Status Full LLE Weight Bearing Status Full Oxygen Therapy Oxygen Therapy None (Room air) Pain Assessment Pain Assessment No/denies pain Cognition Overall Cognitive Status WFL Arousal/Alertness Appropriate responses to stimuli Orientation Level Oriented X4 Following Commands Follows one step commands with increased time;Follows one step commands with repetition Safety Judgment Good awareness of safety precautions Home Living Type of Home Apartment Lives With Alone Home Adaptive Equipment Walker - rolling Home Layout One level Home Access Elevator Prior Function Level of [place] Independent with mobility and functional transfers Ambulation Status Household ambulator Receives Help From Family Indoor Mobility Assistance Independent Stairs Assistance Not Applicable Prior Device Use Walker Activity Tolerance Endurance Tolerates 10 - 20 min exercise with multiple rests Static Sitting Balance Static Sitting-Level of Assistance Distant supervision Static Sitting-Balance Support Feet supported Static Standing Balance Static Standing-Level of Assistance Supervision Static Standing-Balance Support Right upper extremity supported;Left upper extremity supported Bed Mobility Bed Mobility Comments pt got himself to eob upon entering room Transfers Sit to Stand Assistance Supervision Sit to Stand Deficit Supervision/safety awareness Chair/Bed to Chair/Bed Transfer Assistance Supervision Chair/Bed to Chair/Bed Transfer Deficit Supervision/safety awareness Ambulation Walking Assistance Close supervision Walking Deficit Limited endurance;Impaired balance Device Rolling walker Distance Ambulated (ft) 50 RUE Assessment RUE Assessment Within Functional Limits LUE Assessment LUE Assessment Within Functional Limits RLE Assessment RLE Assessment Within Functional Limits LLE Assessment LLE Assessment Within Functional Limits PT Assessment PT Assessment Results Decreased endurance;Impaired balance Prognosis Good Evaluation/Treatment Tolerance Patient limited by fatigue Plan PT Plan No skilled PT PT Discharge Recommendations Home PT PT - Evaluation Status Complete PT - OK to Discharge Yes PT Evaluation Time Entry PT Evaluation (Moderate) Time Entry 30 Treatment performed during evaluation: None performed ADDITIONAL COMMENTS: Chart reviewed. RN clears pt for session. Pt agrees to participate and presented EOB upon PT arrival. All lines in place. Gait belt utilized throughout treatment to maximize safety. Medical precautions observed appropriately. Initiated education on the importance of PT, bed mobility safety, Transfer Safety, Ambulation Safety , Therapy Plan of Care, Home Safety, Energy Conservations strategies, and importance of OOB activity . Pt verbalized understanding. EXIT STATUS: Session ended with patient in chair , tray table and call light within reach, and RN made aware. Physical Therapy Assessment/Plan Jluis Murrieta is a 78 y.o. male admitted to [facility] on 04/13/2024 for Acute pancreatitis, unspecified complication status, unspecified pancreatitis type [K85.90] . Pt presents with decreased BLE strength, balance deficits, decreased activity tolerance, and far below functional baseline. Pt performed bed mobility Independent, , Transfers with Supervision, FWW and ambulates Supervision with FWW 50 ft . PT recommends Home PT when medically stable for safe discharge and to optimize functional mobility and independence. Goals Encounter Problems Encounter Problems (Active) There are no active problems. Encounter Problems (Resolved) There are no resolved problems. Education Documentation Body Mechanics, taught by Steffanie Rojas at 04/15/2024 10:47 AM. Learner: Patient Readiness: Acceptance Method: Explanation, Demonstration Response: Verbalizes Understanding, Demonstrated Understanding Mobility Training, taught by Steffanie Rojas at 04/15/2024 10:47 AM. Learner: Patient Readiness: Acceptance Method: Explanation, Demonstration Response: Verbalizes Understanding, Demonstrated Understanding Education Comments No comments found. Steffanie Rojas Cosigned by Mary Molina PT at 04/15/2024 11:39 AM EST Associated attestation - Mary Molina PT - 04/15/2024 11:39 AM EST Pt was integrally and physically involved in the decision making, delivery of interventions, and ongoing assessment during the pt's care session. * Nayana Tammy - 04/15/2024 10:45 AM EST SPIRITUAL CARE Date/Time:04/15/24 at 10:45 AM EST Type of Visit: Initial Visit and Medical Examiner Rounding Reason for Visit: Spiritual/Emotional Support Time Spent: 10 Minutes Location: [address] [place] [address] Sacramental Encounters: Spiritual Distress Assessment: Spiritual Assessment/Distress Spiritual Care Assessment: Assessment: Jluis, was awake, alert and resting in bed at the time of visit. Greek speaking, on the phone at the time of visit. Voiced no concern but thankful for the stop in. Intervention: NE Spiritual Care Interventions : provided support Outcomes: expressed peace Plan of Care: Visit as needed *Reference: Spiritual Distress Assessment Tool: The SDAT is a clinical tool used by chaplains to identify unmet spiritual and emotional needs that can impact Goals of Care in the following categories: Spiritual Distress Assessment Legend Spiritual Needs Related Questions Meaning Are you having difficulties coping with what is happening to your now? Does your hospitalization have any repercussions on the way you live usually? Transcendence Do you have a particular denominational, johnson, or spirituality? Is your denominational/spirituality/johnson challenged by what is happening to you now? Values Do you think that the health professionals caring for you know you well enough? Do you feel that you are participating in the decisions made about your care? Psycho-Social Identity Do you have any worries or difficulties regarding your family or other persons close to you? Do you feel lonely? Do you have links to your johnson community? SCALE 0= no evidence of unmet spiritual needs 1= some evidence of unmet spiritual needs 2= substantial evidence of unmet spiritual needs 3= evidence of severe unmet spiritual needs * Evi Mckeon RN - 04/15/2024 9:47 AM EST Goals: Identify possible barriers to meeting goals/advancing plan of care: Advance diet Stability of the patient: Moderately Stable - Low risk of patient condition declining or worsening End of Shift Summary: Patient alert and oriented, primarily Ukranian speaking. Cooperative with plan of care and meds. Patient denies pain, states no N/V. Verbalizes no other complaint. TILE PRESSER to advancediet with possible d/c later. Care ongoing at this time * Stefan Gregg MD - 04/14/2024 2:09 PM EST Hospital PROGRESS NOTE SUBJECTIVE: Time patient seen (approx.): 1:30 PM. Overnight events: He is still having some abdominal discomfort but all in all states it is much better than previous. He denies any nausea or vomiting. There has been no GI bleeding. He is much improved at least per speaking with him. OBJECTIVE: Last Recorded Vitals: Blood pressure (!) 160/56, pulse 69, temperature 36.8 ??C (98.3 ??F), resp. rate 18, height 1.676 m(66 ), weight 109 kg (240 lb), SpO2 95%. Physical exam: He is awake alert and certainly looks much more comfortable. His abdomen today is entirely soft andnontender without any guarding rebound or rigidity. CVA is negative. RESULTS: Labs: Lab Results Component Value Date WBC 14.8 (H) 04/14/2024 HGB 12.8 (L) 04/14/2024 HCT 39.4 (L) 04/14/2024 MCV 85.5 04/14/2024 PLT 170 04/14/2024 Lab Results Component Value Date NA 139 04/14/2024 K 4.2 04/14/2024 CL 110 04/14/2024 CO2 21 04/14/2024 BUN 27 (H) 04/14/2024 CREATININE 1.68 (H) 04/14/2024 CALCIUM 9.0 04/14/2024 PROT 6.0 04/14/2024 BILITOT 0.9 04/14/2024 ALKPHOS 287 (H) 04/14/2024 ALT 92 (H) 04/14/2024 AST 98 (H) 04/14/2024 GLUCOSE 75 04/14/2024 Culture, Blood Date Value Ref Range Status 04/13/2024 Culture in progress Preliminary Pertinent new radiology results/studies: MR Abdomen wo and w Contrast MRCP Narrative: PROCEDURE: Contrast enhanced MRI of the abdomen with MRCP. HISTORY: Pancreatitis suspected. TECHNIQUE: Multiplanar multisequence MRI of the abdomen with and without intravenous contrast administration. MRCP was also performed, with multiple reformats. IV contrast dose: 20 mL intravenous Dotarem from a 20 mL vial with 0 mL discarded COMPARISON: CT abdomen and pelvis 04/13/2024. FINDINGS: LOWER THORAX: Normal. LIVER: Small amount of perihepatic ascites. No focal lesion. No evidence of steatosis on out of phase imaging. The portal and hepatic veins are patent. BILIARY: Cholecystectomy. Mild intrahepatic and extrahepatic biliary ductal dilatation. The MRCP images are limited by motion, but there is no visible ductal filling defect. PANCREAS: No focal lesion. No ductal dilatation. No peripancreatic inflammatory change. SPLEEN: Normal. ADRENAL GLANDS: Normal. KIDNEYS: Moderate bilateral cortical atrophy. Multiple bilateral cortical cysts, with the largest exophytic from the lower pole of the right kidney measuring 4.1 cm. Suggestion of thin enhancing septations associated with a 2.8 cm lesion exophytic from the anterolateral interpolar left kidney (series 15, image 40) without mural nodularity. Visible portions of the collecting systems are normal. RETROPERITONEUM: No mass or lymphadenopathy. VASCULATURE: No aneurysm. BOWEL/MESENTERY: Colonic diverticulosis. ABDOMINAL WALL: Visible portions are normal. BONES: Multilevel degenerative changes of the spine with Modic endplate changes and at least one incompletely characterized significant spinal stenosis in the lumbar region. No visible bony lesion. Impression: 1. No MRI evidence of pancreatitis. 2. Cholecystectomy. Mild intra and extrahepatic biliary ductal dilatation. Given the limitations imposed by motion on MRCP images, no ductal filling defect or mass. 3. Small amount of perihepatic ascites. 4. Multiple bilateral renal cortical cysts. There is suggestion of thin internal septations withoutmural nodularity within one of the cysts on the left (Bosniak 2F). Given the location of the cyst, it is likely to the well-visualized with ultrasound, which would provide an easier modality for follow-up of this finding. -------- FINAL REPORT -------- Dictated By: Aj Vega Dictated Date: 04/13/2024 15:06 ET Assigned Physician: Aj Vega Reviewed and Electronically Signed By: Aj Vega Signed Date: 04/13/2024 15:20 ET Workstation ID: [id number] Transcribed By: Self Edit Transcribed Date: 04/13/2024 15:[address] Abdomen Pelvis w Contrast Narrative: PROCEDURE: CT ABDOMEN/PELVIS INDICATION: Pain TECHNIQUE: CT of the abdomen and pelvis following the intravenous administration of 90cc Isovue 370. Multiplanar reformats. The examination was performed utilizing dose reduction techniques. Total DLP 1460 COMPARISON: 02/02/2022 FINDINGS: LOWER THORAX: Bibasilar atelectasis. Moderate coronary artery calcifications. HEPATOBILIARY: No focal liver lesions. Increased biliary duct dilatation status post cholecystectomy. No obstructing stone or mass seen by CT. SPLEEN: No splenomegaly. PANCREAS: No focal mass or ductal dilatation. ADRENALS: No nodules. KIDNEYS/URETERS: No hydronephrosis, stones, or solid mass. Bilateral cysts. PELVIC ORGANS/BLADDER: Enlarged prostate. Bladder is unremarkable. PERITONEUM / RETROPERITONEUM: Small ascites. No free intraperitoneal air or fluid collection. No retroperitoneal or mesenteric lymphadenopathy. VESSELS: Abdominal aorta is normal in size. Portal vein is patent. GI TRACT: Scattered wall thickening throughout the small bowel with small ascites. No bowel obstruction. Appendix is not visualized. No evidence of appendicitis in the right lower quadrant. Colonic diverticulosis. BONES AND SOFT TISSUES: Small fat-containing left greater than right inguinal hernias. Degenerativechanges seen throughout the bones. Impression: Infectious or inflammatory enteritis. Small ascites. No abscess or free air. Cholecystectomy. Increased biliary duct dilatation without obstructing stone or mass detected by CT. MRCP could evaluate further if clinically indicated. Enlarged prostate. -------- FINAL REPORT -------- Dictated By: ALLAN KENT Dictated Date: 04/13/2024 11:07 ET Assigned Physician: ALLAN KENT Reviewed and Electronically Signed By: ALLAN KENT Signed Date: 04/13/2024 11:17 ET Workstation ID: [id number] Transcribed By: Self Edit Transcribed Date: 04/13/2024 11:07 ET Telemetry: MEDICATIONS: Current Hospital Medications: Current Facility-Administered Medications: amLODIPine (NORVASC) tablet 10 mg, 10 mg, oral, Daily, Dorina Garcia NP, 10 mg at 04/14/24 1208 enoxaparin (LOVENOX) injection 40 mg, 40 mg, subcutaneous, q24h SONIA, Iris Ham MD, 40 mg at 04/14/24 0853 hydrALAZINE (APRESOLINE) injection 10 mg, 10 mg, intravenous, q8h PRN, LUIS DANIEL Espinoza hydrALAZINE (APRESOLINE) tablet 25 mg, 25 mg, oral, BID, Dorina Garcia, TILE PRESSER, 25 mg at 04/14/24 1208 HYDROmorphone (DILAUDID) injection 1 mg, 1 mg, intravenous, Once, Iris Ham MD HYDROmorphone (PF) injection 0.5 mg, 0.5 mg, intravenous, q4h PRN, LUIS DANIEL Espinoza HYDROmorphone (PF) injection 1 mg, 1 mg, intravenous, q6h PRN, LUIS DANIEL Espinoza, 1 mg at 04/13/24 2115 lactated Ringer's infusion, 125 mL/hr, intravenous, Continuous, Iris Ham MD, Last Rate: 125 mL/hr at 04/14/24 1247, 125 mL/hr at 04/14/24 1247 metoprolol tartrate (LOPRESSOR) tablet 100 mg, 100 mg, oral, BID, Dorina Garcia, TILE PRESSER, 100 mg at 04/14/24 1207 pantoprazole (PROTONIX) EC tablet 40 mg, 40 mg, oral, BID AC, Dorina Garcia NP pravastatin (PRAVACHOL) tablet 40 mg, 40 mg, oral, Nightly, Dorina Garcia NP sodium chloride 0.9 % bolus 1,000 mL, 1,000 mL, intravenous, Once, Iris Ham MD zolpidem (AMBIEN) tablet 5 mg, 5 mg, oral, Nightly, Dorina Garcia NP Home Medications: He has a current medication list which includes the following long-term medication(s): amlodipine, gabapentin, hydralazine, lisinopril, metoprolol tartrate, pravastatin, and quetiapine. ASSESSMENT AND PLAN: Principal Problem: Acute pancreatitis, unspecified complication status, unspecified pancreatitis type Clinically he does seem much improved his belly is soft and he states less pain. In terms of labs his white count has gone from 21 8-14.8 which certainly is a marked improvement. His H&H is slightly lower but I suspect that is hydration. His alk phos is 287 with an ALT of 92 and an AST of 98. His lipase is down to 206. At some point given the rise in his LFTs it might not be unreasonable to have him get an outpatientEUS just to rule out stones in the distal duct. Certainly they have not been present on any imagingyet done. Also he should be followed clinically as an outpatient to make sure these numbers resolve. Please text me if you have any questions, thank you so much Stefan Gregg * Henrietta Romero RN - 04/14/2024 11:42 AM EST ED RN HANDOFF (All Santiago Below Must Be Completed) Reason/Diagnosis for Admission: Treat sympoms. Type of Admission: [] Medsurg, [x] Telemetry Already in a Hospital Bed: [x] Yes / [] No Room Considerations/Precautions (ex: fever, diarrhea, or any infectious concerns): [] Yes / [x] No Manager Athletics: [] Yes / [x] No If YES, Cardiac Rhythm: [] NSR, [] SB, [] ST, [] A-FIB, [] A-Flutter, [] Pacemaker, [] 1st Degree HB, [] 2nd Degree HB, [] 3rd Degree HB Reason for Manager Athletics: VS: Visit Vitals BP (!) 145/109 (BP Location: Right arm, Patient Position: Lying) Pulse 88 Temp 37.1 ??C (98.7 ??F) (Oral) Resp 12 Ht 1.676 m (66 ) Wt 109 kg (240 lb) SpO2 98% BMI 38.74 kg/m?? Smoking Status Never BSA 2.16 m?? Current Mental Status: A/O x [x]4, []3, []2, []1 Current Ambulation Status: IV Access: [x] Yes / [] No Field IV present: [] Yes / [x] No Hx of Violence: [] Yes / [x] No / [] Unknown Fall Risk:[x] Yes / [] No Yellow Bracelet Applied [x] Yes / [] No Yellow Socks Applied [] Yes / [] No Patient Belongings inventoried and BL completed: [x] Yes / [] No Patient belongings stored in the security closet: [] Yes (If Yes please supply Security bag #): [] No Patient Medications stored in Pharmacy: [] Yes (If Yes please supply Medication Security bag #): [] No ED Summary of Care: Hx - htn,hdl,ckd, A&ox4 C/o n/v/d x 4 days, with abd pain denies fevers. Admited for reat sympoms, eitiology unknown, iv fluids. Clear liquid diet. Increased lipase 4518 Submitted by and Phone Extension: EJD * Jeanna Rojas RN - 04/13/2024 6:41 PM EST Pt does not report pain at this time, A/ox4, lives by himself. Uses cane to get around. NS 1,000 mlbolus due at 1300 is not needed per provider Figeruoa - will non-admin. Zosyn infusing at this time. Provider does want LR and magnesium infusion to be started. Daughter at bedside. * Maria T Thomas RN - 04/13/2024 8:49 AM EST Pt bibems from home for eval of n/v/d x 4 days, diffuse abd pain x 2 days, worsening each day. No fevers since symptom onset. No sick contacts. * LUIS DANIEL Valles - 04/13/2024 8:42 AM EST Emergency Medicine Note Patient Name: Jluis Murrieta Initial Evaluation: 04/13/2024 : 1945 Patient's PCP: Tyrell Watts MD Emergency Physician: LUIS DANIEL Valles History of Present Illness Chief Complaint: Chief Complaint Patient presents with ??? Vomiting HPI: 78-year-old male here today history of hypertension and gout. Complaining of 4 days of nausea vomiting diarrhea and diffuse abdominal pain x 2 days worse today denies any fevers chills chest pain or respiratory distress. Gradual onset of system. History of a cholecystectomy and an appendectomy. ROS: I have performed a ROS with the pertinent positives and negatives documented in the history ofpresent illness. Previous History Past Medical History: Diagnosis Date ??? Gout DX:Gout ??? High blood pressure DX:High blood pressure Past Surgical History: Procedure Laterality Date ??? APPENDECTOMY PROCEDURE:APPENDECTOMY ??? CHOLECYSTECTOMY PROCEDURE:CHOLECYSTECTOMY Social History Tobacco Use ??? Smoking status: Never ??? Smokeless tobacco: Never Substance Use Topics ??? Alcohol use: Yes Alcohol/week: 2.0 standard drinks of alcohol ??? Drug use: No No family history on file. has No Known Allergies. No current facility-administered medications on file prior to encounter. No current outpatient medications on file prior to encounter. Physical Exam ED Triage Vitals [04/13/24 1144] Temp Heart Rate Resp BP 36.7 ??C (98.1 ??F) 58 18 109/57 SpO2 Temp src Heart Rate Source Patient Position 96 % -- -- -- BP Location FiO2 (%) -- -- Physical Exam Vitals and nursing note reviewed. Constitutional: Appearance: Normal appearance. HENT: Head: Normocephalic. Nose: Nose normal. Mouth/Throat: Mouth: Mucous membranes are dry. Eyes: Extraocular Movements: Extraocular movements intact. Pupils: Pupils are equal, round, and reactive to light. Cardiovascular: Rate and Rhythm: Normal rate and regular rhythm. Abdominal: General: There is no distension. Tenderness: There is abdominal tenderness. Comments: Tender upper abdomen to palpation. Peritoneal signs noted abdomen soft. Musculoskeletal: General: Normal range of motion. Cervical back: Normal range of motion and neck supple. Skin: General: Skin is warm. Capillary Refill: Capillary refill takes less than 2 seconds. Neurological: General: No focal deficit present. Mental Status: He is alert and oriented to person, place, and time. Psychiatric: Mood and Affect: Mood normal. Behavior: Behavior normal. Results Labs Reviewed COMPREHENSIVE METABOLIC PANEL - Abnormal Result Value Sodium 140 Potassium 4.8 Chloride 108 CO2 20 (*) Anion Gap 12 (*) Glucose 137 (*) BUN 29 (*) Creatinine 1.91 (*) eGFR 36 (*) BUN/Creatinine Ratio 15.2 Calcium 9.9 AST (SGOT) 47 (*) ALT (SGPT) 28 Alkaline Phosphatase 208 (*) Total Protein 6.8 Albumin 3.3 Total Bilirubin 1.0 MAGNESIUM - Abnormal Magnesium 1.8 (*) LIPASE - Abnormal Lipase 4,518 (*) CBC WITH AUTO DIFFERENTIAL - Abnormal WBC 21.8 (*) RBC 5.40 Hemoglobin 15.2 Hematocrit 47.2 MCV 87.6 MCH 28.2 MCHC 32.2 RDW 15.2 (*) Platelets 207 MPV 13.6 (*) NRBC 0.0 NRBC Absolute 0.00 Neutrophils Relative 75.1 Lymphocytes Relative 10.4 Monocytes Relative 4.8 Eosinophils Relative 8.8 Basophils Relative 0.2 Immature Granulocytes Relative 0.7 Neutrophils Absolute 16.37 (*) Lymphocytes Absolute 2.26 Monocytes Absolute 1.04 (*) Eosinophils Absolute 1.91 (*) Basophils Absolute 0.04 Immature Granulocytes Absolute 0.15 (*) RESPIRATORY VIRUS PANEL MOLECULAR STUDY - Normal Adenovirus Detection by PCR Not Detected Influenza A PCR Not Detected Influenza B PCR Not Detected Coronavirus 229E Not Detected Coronavirus HKU1 Not Detected Coronavirus OC43 Not Detected Coronavirus NL63 Not Detected Parainfluenza Virus 1 Not Detected Parainfluenza Virus 2 Not Detected Parainfluenza Virus 3 Not Detected Parainfluenza Virus 4 Not Detected RSV PCR Not Detected Human Metapneumovirus A and B Not Detected Rhinovirus/Enterovirus Not Detected Bordetella pertussis Not Detected Bordetella parapertussis Not Detected Mycoplasma pneumo by PCR Not Detected Chlamydia pneumoniae Not Detected SARS COV-2 Not Detected Narrative: Testing was performed using the IMT Respiratory Pathogen PCR Assay. All results must [...] that are below the limit of detection. CULTURE BLOOD CBC AND DIFFERENTIAL Narrative: The following orders were created for panel order CBC and differential. Procedure Abnormality Status --------- ------ CBC auto differential[[id number]] Abnormal Final result Please view results for these tests on the individual orders. URINALYSIS WITH REFLEX MICROSCOPIC AND CULTURE Narrative: The following orders were created for panel order Urinalysis with reflex microscopic and culture. Procedure Abnormality Status --------- ------ Urinalysis with reflex ...[[id number]] Corey urine culture tube[[id number]] Please view results for these tests on the individual orders. URINALYSIS WITH REFLEX MICROSCOPIC AND CULTURE Abnormal Labs Reviewed COMPREHENSIVE METABOLIC PANEL - Abnormal; Notable for the following components: Result Value CO2 20 (*) Anion Gap 12 (*) Glucose 137 (*) BUN 29 (*) Creatinine 1.91 (*) eGFR 36 (*) AST (SGOT) 47 (*) Alkaline Phosphatase 208 (*) All other components within normal limits MAGNESIUM - Abnormal; Notable for the following components: Magnesium 1.8 (*) All other components within normal limits LIPASE - Abnormal; Notable for the following components: Lipase 4,518 (*) All other components within normal limits CBC WITH AUTO DIFFERENTIAL - Abnormal; Notable for the following components: WBC 21.8 (*) RDW 15.2 (*) MPV 13.6 (*) Neutrophils Absolute 16.37 (*) Monocytes Absolute 1.04 (*) Eosinophils Absolute 1.91 (*) Immature Granulocytes Absolute 0.15 (*) All other components within normal limits CT Abdomen Pelvis w Contrast Final Result Infectious or inflammatory enteritis. Small ascites. No abscess or free air. Cholecystectomy. Increased biliary duct dilatation without obstructing stone or mass detected by CT. MRCP could evaluate further if clinically indicated. Enlarged prostate. -------- FINAL REPORT -------- Dictated By: ALLAN KENT Dictated Date: 04/13/2024 11:07 ET Assigned Physician: ALLAN KENT Reviewed and Electronically Signed By: ALLAN KENT Signed Date: 04/13/2024 11:17 ET Workstation ID: [id number] Transcribed By: Self Edit Transcribed Date: 04/13/2024 11:07 ET MR Abdomen wo and w Contrast MRCP (Results Pending) I have discussed the incidental/abnormal imaging and/or lab abnormalities with the patient and haveinstructed them the need for further evaluation and workup with their primary care doctor. I have provided the patient with a paper copy of the abnormality. The laboratory results, imaging results and other diagnostic exam results were reviewed in the EMR. EKG Interpretation Critical Care Time None Differential Diagnosis Pancreatitis Gastritis Colitis Diverticulitis Viral syndrome well-appearing nontoxic non-lethargic vital signs are stable. Medical Decision Making Well-appearing nontoxic non-lethargic vital signs are stable lipase 4518. SGOT SGPT T. bili unremarkable. WBC 21.8. CT recommends MRCP. MRCP ordered. Consulted with Dr. Gregg. Patient was given 1 dose of Zosyn. Cristino recommends to hold it anymore antibiotics blood cultures are pending. WBC may umer reaction to the acute pancreatitis. Magnesium to be replaced. N.p.o. admit to hospitalist serviceand IV hydration. Pain management Medications piperacillin-tazobactam (ZOSYN) 3.375 g in sodium chloride 0.9 % 100 mL IVPB (has no administrationin time range) HYDROmorphone (DILAUDID) injection 1 mg (has no administration in time range) sodium chloride 0.9 % bolus 1,000 mL (has no administration in time range) sodium chloride 0.9 % bolus 1,000 mL (1,000 mL intravenous New Bag 04/13/24 1013) ondansetron (PF) (ZOFRAN) injection 4 mg (4 mg intravenous Given 04/13/24 1013) HYDROmorphone (PF) injection 0.5 mg (0.5 mg intravenous Given 04/13/24 1014) sodium chloride 0.9 % flush 10 mL (10 mL intravenous Given 04/13/24 1054) iopamidoL (ISOVUE-370) 370 mg iodine /mL (76 %) injection 90 mL (90 mL intravenous Given 04/13/24 1054) sodium chloride 0.9 % flush 10 mL (10 mL intravenous Given 04/13/24 1421) gadoterate meglumine (CLARISCAN, DOTAREM) injection 20 mL (20 mL intravenous Given 04/13/24 1421) Clinical Impressions as of 04/13/24 1450 Acute pancreatitis, unspecified complication status, unspecified pancreatitis type Amount and/or Complexity of Data Reviewed External Data Reviewed: Encounters reviewed in Chart Review. Details: Labs: ordered. Decision-making details documented in ED Course. Radiology: ordered. Decision-making details documented in ED Course. ECG/medicine tests: ordered. Decision-making details documented in ED Course. Procedures Procedures Diagnosis No diagnosis found. Disposition Data Unavailable ED Prescriptions None Physician Attestation LUIS DANIEL Valles 04/13/24 1450 Cosigned by Varun Barrientos MD at 04/14/2024 12:22 PM EST documented in this encounter H&P Notes * LUIS DANIEL Espinoza - 04/13/2024 3:39 PM EST Images from the original note were not included. [facility] HISTORY AND PHYSICAL Please contact author [LUIS DANIEL Aguilar] via [employer]. Patient: Jluis Murrieta Admission Date/Time: 04/13/2024 8:48 AM : 1945 [78 y.o.] Patient's PCP: Tyrell Watts MD Attending Provider: Varun Barrientos MD;Nermi* CHIEF COMPLAINT: Nausea, vomiting, abdominal pain HPI: 78-year-old Greek speaking male with PMH of hypertension, hyperlipidemia, obesity, CKD, gout presents to the ED for nausea, vomiting and abdominal pain. Patient is accompanied by his daughter who is translating Patient reports a few episodes of diarrhea yesterday 04/12/2024 and then this morning he reported abdominal pain and then had two episodes of nausea and vomiting. He reports poor p.o. intake today Patient called his daughter who took him to the ED for further evaluation He denies any trauma, significant alcohol use, no new medications or change in dose, no recent travel or change in food. He has a history of cholecystectomy and appendectomy. No history of pancreatitis in the past Patient was evaluated by GI Dr. Gregg who recommends symptomatic treatment and no role for ERCP Vitals: 109/57, pulse 58, respiratory rate 18, 96% on room air, afebrile Labs: WBC 21.8, hemoglobin 15.2, hematocrit 47.2, CO2 20, gap 12, glucose 137. BUN 29, creatinine 1.91, GFR 36. Magnesium 1.8. Lipase 4518. T. bili 1.0 Viral panel negative In the ED patient received Dilaudid 0.5 IV x 1, Zofran, 1 L normal saline bolus MRCP - No MRI evidence of pancreatitis. Cholecystectomy. Mild intra and extrahepatic biliary ductaldilatation. Given the limitations imposed by motion on MRCP images, no ductal filling defect or mass. 3. Small amount of perihepatic ascites. 4. Multiple bilateral renal cortical cysts. There is suggestion of thin internal septations withoutmural nodularity within one of the cysts on the left (Bosniak 2F). Given the location of the cyst, it is likely to the well-visualized with ultrasound, which would provide an easier modality for follow-up of this finding. CT Abd/ Pelvis w Contrast - Infectious or inflammatory enteritis. Small ascites. No abscess or freeair. Cholecystectomy. Increased biliary duct dilatation without obstructing stone or mass detected by CT. MRCP could evaluate further if clinically indicated. Enlarged prostate. ROS Negative except noted in HPI ALLERGIES: NKDA HOME MEDICATIONS: Amlodipine 10 mg daily Celebrex 200 mg daily Cetirizine 10 mg daily Gabapentin 100 mg twice daily Hydralazine 25 mg twice daily Lisinopril 40 mg daily Metoprolol tartrate 100 mg twice daily Pravastatin 40 mg at bedtime Seroquel 50 mg at bedtime Sucralfate 1 g twice daily Ambien 10 mg at bedtime as needed PAST MEDICAL HISTORY: Hypertension Hyperlipidemia Insomnia CKD Obesity Gout SURGICAL HISTORY: Cholecystectomy Appendectomy Cataract surgery SOCIAL HISTORY: Tobacco use - Denies Alcohol use - Denies Illicit drug use - Denies Mobility - Cane more than walker but has both ADLs - Independent, lives alone FAMILY HISTORY: Denies any family history of cancer, diabetes, heart disease, stroke PHYSICAL EXAM: GENERAL: 78-year-old obese male resting comfortably on stretcher, NAD HEENT: Normocephalic. EOM intact. PERRL. MMM. CARDIAC: RRR. No murmur, rubs, gallops. No BLE edema or JVD PULMONARY: Lungs clear bilaterally, normal respiratory rate. No wheeze/rales. GI: Soft, nontender, nondistended, normoactive bowel sounds x4. : No CVA tenderness or suprapubic tenderness MSK: Moves all extremities, full ROM. No joint deformity. NEURO: Sensation and light touch intact bilaterally. No focal weakness. Pleasant, A&Ox4. SKIN: Appears clean dry and intact. No lesions, wounds, bruising or erythema. RESULTS/IMAGING: MR Abdomen wo and w Contrast MRCP [[id number]] Collected: 04/13/24 1506 Order Status: Completed Updated: 04/13/24 1525 Narrative: PROCEDURE: Contrast enhanced MRI of the abdomen with MRCP. HISTORY: Pancreatitis suspected. TECHNIQUE: Multiplanar multisequence MRI of the abdomen with and without intravenous contrast administration. MRCP was also performed, with multiple reformats. IV contrast dose: 20 mL intravenous Dotarem from a 20 mL vial with 0 mL discarded COMPARISON: CT abdomen and pelvis 04/13/2024. FINDINGS: LOWER THORAX: Normal. LIVER: Small amount of perihepatic ascites. No focal lesion. No evidence of steatosis on out of phase imaging. The portal and hepatic veins are patent. BILIARY: Cholecystectomy. Mild intrahepatic and extrahepatic biliary ductal dilatation. The MRCP images are limited by motion, but there is no visible ductal filling defect. PANCREAS: No focal lesion. No ductal dilatation. No peripancreatic inflammatory change. SPLEEN: Normal. ADRENAL GLANDS: Normal. KIDNEYS: Moderate bilateral cortical atrophy. Multiple bilateral cortical cysts, with the largest exophytic from the lower pole of the right kidney measuring 4.1 cm. Suggestion of thin enhancing septations associated with a 2.8 cm lesion exophytic from the anterolateral interpolar left kidney (series 15, image 40) without mural nodularity. Visible portions of the collecting systems are normal. RETROPERITONEUM: No mass or lymphadenopathy. VASCULATURE: No aneurysm. BOWEL/MESENTERY: Colonic diverticulosis. ABDOMINAL WALL: Visible portions are normal. BONES: Multilevel degenerative changes of the spine with Modic endplate changes and at least one incompletely characterized significant spinal stenosis in the lumbar region. No visible bony lesion. Impression: 1. No MRI evidence of pancreatitis. 2. Cholecystectomy. Mild intra and extrahepatic biliary ductal dilatation. Given the limitations imposed by motion on MRCP images, no ductal filling defect or mass. 3. Small amount of perihepatic ascites. 4. Multiple bilateral renal cortical cysts. There is suggestion of thin internal septations withoutmural nodularity within one of the cysts on the left (Bosniak 2F). Given the location of the cyst,it is likely to the well-visualized with ultrasound, which would provide an easier modality for follow-up of this finding. -------- FINAL REPORT -------- Dictated By: Aj Vega Dictated Date: 04/13/2024 15:06 ET Assigned Physician: Aj Vega Reviewed and Electronically Signed By: Aj Vega Signed Date: 04/13/2024 15:20 ET Workstation ID: [id number] Transcribed By: Self Edit Transcribed Date: 04/13/2024 15:[address] Abdomen Pelvis w Contrast [[id number]] Collected: 04/13/24 1107 Order Status: Completed Updated: 04/13/24 1122 Narrative: PROCEDURE: CT ABDOMEN/PELVIS INDICATION: Pain TECHNIQUE: CT of the abdomen and pelvis following the intravenous administration of 90cc Isovue 370. Multiplanar reformats. The examination was performed utilizing dose reduction techniques. Total DLP 1460 COMPARISON: 02/02/2022 FINDINGS: LOWER THORAX: Bibasilar atelectasis. Moderate coronary artery calcifications. HEPATOBILIARY: No focal liver lesions. Increased biliary duct dilatation status post cholecystectomy. No obstructing stone or mass seen by CT. SPLEEN: No splenomegaly. PANCREAS: No focal mass or ductal dilatation. ADRENALS: No nodules. KIDNEYS/URETERS: No hydronephrosis, stones, or solid mass. Bilateral cysts. PELVIC ORGANS/BLADDER: Enlarged prostate. Bladder is unremarkable. PERITONEUM / RETROPERITONEUM: Small ascites. No free intraperitoneal air or fluid collection. No retroperitoneal or mesenteric lymphadenopathy. VESSELS: Abdominal aorta is normal in size. Portal vein is patent. GI TRACT: Scattered wall thickening throughout the small bowel with small ascites. No bowel obstruction. Appendix is not visualized. No evidence of appendicitis in the right lower quadrant. Colonic diverticulosis. BONES AND SOFT TISSUES: Small fat-containing left greater than right inguinal hernias. Degenerativechanges seen throughout the bone Impression: Infectious or inflammatory enteritis. Small ascites. No abscess or free air. Cholecystectomy. Increased biliary duct dilatation without obstructing stone or mass detected by CT. MRCP could evaluate further if clinically indicated. Enlarged prostate. -------- FINAL REPORT -------- Dictated By: ALLAN KENT Dictated Date: 04/13/2024 11:07 ET Assigned Physician: ALLAN KENT Reviewed and Electronically Signed By: ALLAN KENT Signed Date: 04/13/2024 11:17 ET Workstation ID: [id number] Transcribed By: Self Edit Transcribed Date: 04/13/2024 11:07 ET ASSESSMENT AND PLAN: Acute pancreatitis Patient presented with acute onset of epigastric pain, nausea, vomiting and diarrhea Lipase 4500 and epigastric pain but no evidence of pancreatitis on MRCP Evaluated by GI with recs to DC antibiotics and treat symptomatically - no role for ERCP Etiology unknown at this time, no significant alcohol use, MRCP negative, triglycerides stable, no new medication - IV fluids - IV Analgesics and antiemetics as needed - Strict NPO - advance diet as tolerated - AM labs Hypertension - IV hydralazine as needed - Holding PO medication for now: Amlodipine Hydralazine Lisinopril Metoprolol Hyperlipidemia - Pravastatin 40 mg at bedtime, holding for now Insomnia - Holding Ambien FULL CODE HCP: shirin Ellison [phone] PPX: Pneumoboots Case and plan discussed with: Dr. Ham 75 minutes or greater was spent on performing a medically appropriate history and physical examination, review of laboratory and radiology data requiring a high level of medical decision making. Cosigned by Iris Ham MD at 04/13/2024 6:31 PM EST Associated attestation - Iris Ham MD - 04/13/2024 6:31 PM EST This is a split/shared visit with LUIS DANIEL Espinoza. I personally performed the medical decision making (MDM) for the care of this patient on 04/13/24 as documented below I personally examined this patient and reviewed his medical records. I have interpreted his vital signs labs and imaging. He is a 78-year-old male with hypertension hyperlipidemia obesity and chronic kidney disease who came with abdominal pain. Vital signs were within normal limits however he does have severe leukocytosis of 21.8 and lipase of 4518. His diagnosis is consistent with acute pancreatitis. He is status post cholecystectomy in the past. This patient might of passed the stone. Viral panel is negative. Willadd LDH to his previous labs. Keep n.p.o. for now. Keep IV hydration. Check triglycerides level and calcium levels. His CAT scan does show some inflammatory enteritis and this could well be the source of his acute pancreatitis. No indication for antibiotics for now. Continue supportive care with IV hydration and analgesia. As needed hydralazine for hypertension and hold p.o. medication. Agree with holding pravastatin for now Iris Ham MD 04/13/24 6:29 PM EST documented in this encounter Consult Notes * Stefan Gregg MD - 04/13/2024 3:51 PM EST Consult Note Patient Name: Jluis Murrieta Age:78 y.o. Date of : 1945 Date of Service: 04/13/24 Reason for Consultation: Requesting Physician: Primary Care Physician: Tyrell Watts MD History of Present Illness: Jluis Murrieta is a 78 y.o. male who came in with epigastric pain and pain in the right upper quadrant since yesterday. Also some element of diarrhea although nonbloody. Pain has become progressively worse. At 1 point he did have some bilious vomiting. There is no history of abdominal trauma he has never had pancreatitis he does not drink alcohol to any significant amount, his gallbladder was removed about 14 years ago and he presents to the ER. As noted his lipase is 4518. But his T. bili is normal. MRI shows no evidence of pancreatitis he does have mild intra and extrahepatic biliary dilation but no ductal filling defect or mass is appreciated. A small amount of perihepatic ascites is present. A CT scan done earlier does show the biliary duct dilation. There is no splenomegaly. Do note smallamount of ascites. There is some scattered mild wall thickening throughout the small bowel appendixis not visualized (was removed) and he does have diverticulosis. He does have small fat-containing left and right inguinal hernias. Labs do show an elevated white count of 21 8. His alkaline phosphatase is 208 but is noted his bilirubin is normal at 1 and his ALT and AST are basically just about normal with an AST of 47 were normal is up to 42 he does have a diminished GFR. He does deny diarrhea. As I see him he is in the ER. His daughter is at his side and does a lot of the interpreting. History is obtained is as above. Currently he is feeling somewhat better. Review of Systems: Per HPI. Otherwise a complete 12 point ROS was negative. Past Medical History: Past Medical History: Diagnosis Date Gout DX:Gout High blood pressure DX:High blood pressure Past Surgical History: Past Surgical History: Procedure Laterality Date APPENDECTOMY PROCEDURE:APPENDECTOMY CHOLECYSTECTOMY PROCEDURE:CHOLECYSTECTOMY Family History: No family history on file. Social History: Social History Socioeconomic History Marital status: Single Spouse name: None Number of children: None Years of education: None Highest education level: None Occupational History None Tobacco Use Smoking status: Never Smokeless tobacco: Never Substance and Sexual Activity Alcohol use: Yes Alcohol/week: 2.0 standard drinks of alcohol Drug use: No Sexual activity: None Other Topics Concern None Social History Narrative None Allergies: No Known Allergies Home Medications: He is not on any long-term medications. Hospital Scheduled Medications: enoxaparin, 40 mg, q24h SONIA HYDROmorphone, 1 mg, Once magnesium sulfate, 2 g, Once piperacillin-tazobactam, 3.375 g, Once sodium chloride, 1,000 mL, Once Vital Signs: His weight is 109 kg (240 lb). His temperature is 36.7 ??C (98.1 ??F). His blood pressure is 109/57and his pulse is 58. His respiration is 18 and oxygen saturation is 96%. Patient lying on a stretcher in the ER. He is awake and alert and answers questions quite appropriately. He is actually pretty good historian. Respiratory status seems normal. His abdomen question hernias and he definitely has epigastric tenderness but no guarding rebound or rigidity is noted. I did not detect any masses. He is not overtly icteric. Laboratory: Lab Results Component Value Date NA 140 04/13/2024 K 4.8 04/13/2024 CL 108 04/13/2024 CO2 20 (L) 04/13/2024 GLUCOSE 137 (H) 04/13/2024 BUN 29 (H) 04/13/2024 CREATININE 1.91 (H) 04/13/2024 CALCIUM 9.9 04/13/2024 PROT 6.8 04/13/2024 ALBUMIN 3.3 04/13/2024 BILITOT 1.0 04/13/2024 AST 47 (H) 04/13/2024 ALT 28 04/13/2024 MG 1.8 (L) 04/13/2024 ALKPHOS 208 (H) 04/13/2024 EGFR 36 (L) 04/13/2024 Lab Results Component Value Date WBC 21.8 (H) 04/13/2024 HGB 15.2 04/13/2024 HCT 47.2 04/13/2024 MCV 87.6 04/13/2024 PLT 207 04/13/2024 @LABRESULTS@ Radiology: MR Abdomen wo and w Contrast MRCP Narrative: PROCEDURE: Contrast enhanced MRI of the abdomen with MRCP. HISTORY: Pancreatitis suspected. TECHNIQUE: Multiplanar multisequence MRI of the abdomen with and without intravenous contrast administration. MRCP was also performed, with multiple reformats. IV contrast dose: 20 mL intravenous Dotarem from a 20 mL vial with 0 mL discarded COMPARISON: CT abdomen and pelvis 04/13/2024. FINDINGS: LOWER THORAX: Normal. LIVER: Small amount of perihepatic ascites. No focal lesion. No evidence of steatosis on out of phase imaging. The portal and hepatic veins are patent. BILIARY: Cholecystectomy. Mild intrahepatic and extrahepatic biliary ductal dilatation. The MRCP images are limited by motion, but there is no visible ductal filling defect. PANCREAS: No focal lesion. No ductal dilatation. No peripancreatic inflammatory change. SPLEEN: Normal. ADRENAL GLANDS: Normal. KIDNEYS: Moderate bilateral cortical atrophy. Multiple bilateral cortical cysts, with the largest exophytic from the lower pole of the right kidney measuring 4.1 cm. Suggestion of thin enhancing septations associated with a 2.8 cm lesion exophytic from the anterolateral interpolar left kidney (series 15, image 40) without mural nodularity. Visible portions of the collecting systems are normal. RETROPERITONEUM: No mass or lymphadenopathy. VASCULATURE: No aneurysm. BOWEL/MESENTERY: Colonic diverticulosis. ABDOMINAL WALL: Visible portions are normal. BONES: Multilevel degenerative changes of the spine with Modic endplate changes and at least one incompletely characterized significant spinal stenosis in the lumbar region. No visible bony lesion. Impression: 1. No MRI evidence of pancreatitis. 2. Cholecystectomy. Mild intra and extrahepatic biliary ductal dilatation. Given the limitations imposed by motion on MRCP images, no ductal filling defect or mass. 3. Small amount of perihepatic ascites. 4. Multiple bilateral renal cortical cysts. There is suggestion of thin internal septations withoutmural nodularity within one of the cysts on the left (Bosniak 2F). Given the location of the cyst, it is likely to the well-visualized with ultrasound, which would provide an easier modality for follow-up of this finding. -------- FINAL REPORT -------- Dictated By: Aj Vega Dictated Date: 04/13/2024 15:06 ET Assigned Physician: Aj Vega Reviewed and Electronically Signed By: Aj Vega Signed Date: 04/13/2024 15:20 ET Workstation ID: [id number] Transcribed By: Self Edit Transcribed Date: 04/13/2024 15:[address] Abdomen Pelvis w Contrast Narrative: PROCEDURE: CT ABDOMEN/PELVIS INDICATION: Pain TECHNIQUE: CT of the abdomen and pelvis following the intravenous administration of 90cc Isovue 370. Multiplanar reformats. The examination was performed utilizing dose reduction techniques. Total DLP 1460 COMPARISON: 02/02/2022 FINDINGS: LOWER THORAX: Bibasilar atelectasis. Moderate coronary artery calcifications. HEPATOBILIARY: No focal liver lesions. Increased biliary duct dilatation status post cholecystectomy. No obstructing stone or mass seen by CT. SPLEEN: No splenomegaly. PANCREAS: No focal mass or ductal dilatation. ADRENALS: No nodules. KIDNEYS/URETERS: No hydronephrosis, stones, or solid mass. Bilateral cysts. PELVIC ORGANS/BLADDER: Enlarged prostate. Bladder is unremarkable. PERITONEUM / RETROPERITONEUM: Small ascites. No free intraperitoneal air or fluid collection. No retroperitoneal or mesenteric lymphadenopathy. VESSELS: Abdominal aorta is normal in size. Portal vein is patent. GI TRACT: Scattered wall thickening throughout the small bowel with small ascites. No bowel obstruction. Appendix is not visualized. No evidence of appendicitis in the right lower quadrant. Colonic diverticulosis. BONES AND SOFT TISSUES: Small fat-containing left greater than right inguinal hernias. Degenerativechanges seen throughout the bones. Impression: Infectious or inflammatory enteritis. Small ascites. No abscess or free air. Cholecystectomy. Increased biliary duct dilatation without obstructing stone or mass detected by CT. MRCP could evaluate further if clinically indicated. Enlarged prostate. -------- FINAL REPORT -------- Dictated By: ALLAN KENT Dictated Date: 04/13/2024 11:07 ET Assigned Physician: ALLAN KENT Reviewed and Electronically Signed By: ALLAN KENT Signed Date: 04/13/2024 11:17 ET Workstation ID: [id number] Transcribed By: Self Edit Transcribed Date: 04/13/2024 11:07 ET Assessment/Plan Epigastric pain markedly elevated lipase. The guidelines suggest 2 out of 3 criteria for establishing a diagnosis of pancreatitis and with a lipase over 4000 and epigastric pain I think this fits. The pain is not umbilical so I think ischemic bowel disease is a lot less likely. In terms of etiology he has had dilated ducts but there is no evidence of a stone on any of the imaging done. Is possibly had a stone and passed it. There are no new meds to implicate here. He is on a statin but has been on the statin for about 15 years. He does not drink significant amounts of alcohol. There is no history of travel. He has not been injured in his abdomen. There is no real history of autoimmune disease. Calcium and TG's normal. No suggestion of Divisum on rads. No family history. Could consider checking IgG4 (autoimmune) but imaging doesn't suggest this. I think for the time being I would hydrate him, follow his labs and monitor him carefully. I do notsee a role for ERCP at this point. I also think the role of upper or lower endoscopy would be quitelimited. He denied diarrhea but if he were to develop diarrhea certainly would check a PCR stool. Thank you so much, Stefan Gregg Thank you for this interesting consult. Please feel free to contact us with any additional questions or concerns. We will continue to follow along with you. Stefan Gregg MD CC:Varun Barrientos MD;Nermi* Tyrell Watts MD documented in this encounter Miscellaneous Notes * ED Bed Hold Note - Wing Larkin RN - 04/13/2024 9:55 PM EST Bed: BL-27 Expected date: Expected time: Means of arrival: Comments: Room 15 * ED Bed Hold Note - Cary Khan RN - 04/13/2024 8:48 AM EST Bed: RD-15 Expected date: Expected time: Means of arrival: Comments: Alfredo Tanner documented in this encounter Plan of Treatment Not on file documented as of this encounter Procedures Procedure Name Priority Date/Time Associated Diagnosis Comments ECG OUTSIDE 04/16/2024 MANUAL DIFFERENTIAL - SYSMEX WAM Routine 04/15/2024 6:44 AM EST CBC WITH AUTO DIFFERENTIAL Routine 04/15/2024 6:44 AM EST CBC AND DIFFERENTIAL Routine 04/15/2024 6:44 AM EST MAGNESIUM Routine 04/15/2024 6:44 AM EST LIPASE Routine 04/15/2024 6:44 AM EST BASIC METABOLIC PANEL Routine 04/15/2024 6:44 AM EST COMPLETE BLOOD COUNT Routine 04/14/2024 4:20 AM EST LIPASE Add-On 04/14/2024 4:20 AM EST COMPREHENSIVE METABOLIC PANEL Routine 04/14/2024 4:20 AM EST ECG OUTSIDE 04/14/2024 URINALYSIS WITH REFLEX MICROSCOPIC AND CULTURE STAT 04/13/2024 6:30 PM EST COREY URINE CULTURE TUBE STAT 04/13/2024 6:30 PM EST URINALYSIS WITH REFLEX MICROSCOPIC AND CULTURE STAT 04/13/2024 6:30 PM EST CULTURE BLOOD STAT 04/13/2024 2:58 PM EST MR ABDOMEN WO AND W CONTRAST MRCP STAT 04/13/2024 2:[address] ABDOMEN PELVIS W CONTRAST STAT 04/13/2024 10:56 AM EST CBC WITH AUTO DIFFERENTIAL STAT 04/13/2024 9:11 AM EST CBC AND DIFFERENTIAL STAT 04/13/2024 9:11 AM EST TRIGLYCERIDES Add-On 04/13/2024 9:11 AM EST MAGNESIUM STAT 04/13/2024 9:11 AM EST LIPASE STAT 04/13/2024 9:11 AM EST COMPREHENSIVE METABOLIC PANEL STAT 04/13/2024 9:11 AM EST RESPIRATORY VIRUS PANEL MOLECULAR STUDY STAT 04/13/2024 9:05 AM EST documented in this encounter Results * ECG-Outside (04/16/2024) us Provider Onbase MD ECG ORDERABLES Final Result * (ABNORMAL) Manual differential (04/15/2024 6:44 AM EST) Neutrophils % 56.0 % LAB HEMETOLOGY METHOD 04/15/2024 8:31 AM [facility] Lymphocytes % 16.0 % LAB HEMETOLOGY METHOD 04/15/2024 8:31 AM [facility] Monocytes % 7.0 % LAB HEMETOLOGY METHOD 04/15/2024 8:31 AM [facility] Eosinophils % 21.0 % LAB HEMETOLOGY METHOD 04/15/2024 8:31 AM [facility] Basophils % 0.0 % LAB HEMETOLOGY METHOD 04/15/2024 8:31 AM [facility] Neutrophils Absolute Manual 7.00 1.50 - 7.00 K/mcL LAB HEMETOLOGY METHOD 04/15/2024 8:31 AM [facility] Lymphocytes Absolute 2.00 1.00 - 5.00 K/mcL LAB HEMETOLOGY METHOD 04/15/2024 8:31 AM [facility] Monocytes Absolute Manual 0.88 0.20 - 1.00 K/mcL LAB HEMETOLOGY METHOD 04/15/2024 8:31 AM [facility] Eosinophils Absolute Manual 2.63(H) 0.00 - 0.50 K/mcL LAB HEMETOLOGY METHOD 04/15/2024 8:31 AM [facility] Basophils Absolute Manual 0.00 0.00 - 0.20 K/mcL LAB HEMETOLOGY METHOD 04/15/2024 8:31 AM [facility] Rbc Morphology Consistent with indices Consistent with indices, Normal for LAB HEMETOLOGY METHOD 04/15/2024 8:31 AM [facility] Platelet Morphology - WAM See Note(A) Normal LAB HEMETOLOGY METHOD 04/15/2024 8:31 AM [facility] Comment:PLT: Normal Blood Venous blood specimen / Unknown Venipuncture / Unknown 04/15/2024 6:44 AM EST 04/15/2024 7:30 AM EST us Dorina Garcia NP LAB BLOOD ORDERABLES Final Resul t [facility] [address] [place] [address], * (ABNORMAL) CBC auto differential (04/15/2024 6:44 AM EST) WBC 12.5(H) 4.8 - 10.8 K/mcL LAB HEMETOLOGY METHOD 04/15/2024 8:31 AM [facility] RBC 4.30(L) 4.50 - 5.50 M/mcL LAB HEMETOLOGY METHOD 04/15/2024 8:31 AM [facility] Hemoglobin 12.1(L) 13.5 - 17.5 g/dL LAB HEMETOLOGY METHOD 04/15/2024 8:31 AM [facility] Hematocrit 37.5(L) 42.0 - 54.0 % LAB HEMETOLOGY METHOD 04/15/2024 8:31 AM [facility] MCV 87.4 79.0 - 98.0 FL LAB HEMETOLOGY METHOD 04/15/2024 8:31 AM [facility] MCH 28.2 27.0 - 32.0 pcg LAB HEMETOLOGY METHOD 04/15/2024 8:31 AM [facility] MCHC 32.3 32.0 - 37.0 g/dL LAB HEMETOLOGY METHOD 04/15/2024 8:31 AM [facility] RDW 15.5(H) 11.0 - 15.0 % LAB HEMETOLOGY METHOD 04/15/2024 8:31 AM EST [facility] Platelets 165 130 - 400 K/mcL LAB HEMETOLOGY METHOD 04/15/2024 8:31 AM [facility] MPV 13.6(H) 7.0 - 11.0 FL LAB HEMETOLOGY METHOD 04/15/2024 8:31 AM [facility] NRBC 0.0 <1.0 % LAB HEMETOLOGY METHOD 04/15/2024 8:31 AM [facility] NRBC Absolute 0.00 <0.10 K/mcL LAB HEMETOLOGY METHOD 04/15/2024 8:31 AM [facility] Blood Venous blood specimen / Unknown Venipuncture / Unknown 04/15/2024 6:44 AM EST 04/15/2024 7:30 AM EST us Dorina Garcia TILE PRESSER LAB BLOOD ORDERABLES Final Resul t Performing Organization Address City/[facility]/ZIP Co de Phone Number [facility] [address] [place] [address], [place] [phone] * Lipase (04/15/2024 6:44 AM EST) Pathologist [facility] [place] Lipase 40 13 - 75 unit/L LAB CHEMISTRY METHOD 04/15/2024 8:13 AM EST [facility] Blood Venous blood specimen / Unknown Venipuncture / Unknown 04/15/2024 6:44 AM EST 04/15/2024 7:30 AM EST us Dorina Garcia TILE PRESSER LAB BLOOD ORDERABLES Final Resul t [facility] [address] [place] [address], [place] [phone] * Magnesium (04/15/2024 6:44 AM EST) Magnesium 1.9 1.9 - 2.6 mg/dL LAB CHEMISTRY METHOD 04/15/2024 8:05 AM [facility] Blood Venous blood specimen / Unknown Venipuncture / Unknown 04/15/2024 6:44 AM EST 04/15/2024 7:30 AM EST us Dorina Garcia TILE PRESSER LAB BLOOD ORDERABLES Final Resul t [facility] [address] [place] [address], * (ABNORMAL) Basic metabolic panel (04/15/2024 6:44 AM EST) Sodium 142 133 - 145 mmol/L LAB CHEMISTRY METHOD 04/15/2024 8:05 AM [facility] Potassium 4.4 3.5 - 5.5 mmol/L LAB CHEMISTRY METHOD 04/15/2024 8:05 AM [facility] Chloride 109 96 - 110 mmol/L LAB CHEMISTRY METHOD 04/15/2024 8:05 AM [facility] CO2 22 21 - 32 mmol/L LAB CHEMISTRY METHOD 04/15/2024 8:05 AM [facility] Anion Gap 11 3 - 11 LAB CHEMISTRY METHOD 04/15/2024 8:05 AM [facility] Glucose 68(L) 70 - 100 mg/dL LAB CHEMISTRY METHOD 04/15/2024 8:05 AM [facility] BUN 17 5 - 25 mg/dL LAB CHEMISTRY METHOD 04/15/2024 8:05 AM [facility] Creatinine 1.34(H) 0.70 - 1.30 mg/dL LAB CHEMISTRY METHOD 04/15/2024 8:05 AM [facility] eGFR 55(L) >=60 mL/min/1. 73m2 LAB CHEMISTRY METHOD 04/15/2024 8:05 AM [facility] Comment:Calculation based on the??Chronic Kidney Disease Epidemiology Collaboration (CKD-EPI) equation refit??without adjustment for race. BUN/Creatinine Ratio 12.7 LAB CHEMISTRY METHOD 04/15/2024 8:05 AM EST [facility] Calcium 9.1 8.5 - 10.5 mg/dL LAB CHEMISTRY METHOD 04/15/2024 8:05 AM EST [facility] Blood Venous blood specimen / Unknown Venipuncture / Unknown 04/15/2024 6:44 AM EST 04/15/2024 7:30 AM EST Dorina Garcia NP LAB BLOOD ORDERABLES Final Resul t Performing Organization Address City/[facility]/ZIP Co de Phone Number [facility] [address] [place] [address], [place] [phone] * (ABNORMAL) Lipase (04/14/2024 4:20 AM EST) Lipase 206(H) 13 - 75 unit/L LAB CHEMISTRY METHOD 04/14/2024 8:08 AM EST [facility] Comment:Results verified by repeat testing Blood Venous blood specimen / Unknown Venipuncture / Unknown 04/14/2024 4:20 AM EST 04/14/2024 5:36 AM EST us Dorina Garcia NP LAB BLOOD ORDERABLES Final Resul t [facility] [address] [place] [address], [place] [phone] * (ABNORMAL) Complete blood count (04/14/2024 4:20 AM EST) WBC 14.8(H) 4.8 - 10.8 K/[facility] LAB HEMETOLOGY METHOD 04/14/2024 6:00 AM EST [facility] RBC 4.60 4.50 - 5.50 M/[facility] LAB HEMETOLOGY METHOD 04/14/2024 6:00 AM [facility] Hemoglobin 12.8(L) 13.5 - 17.5 g/dL LAB HEMETOLOGY METHOD 04/14/2024 6:00 AM [facility] Hematocrit 39.4(L) 42.0 - 54.0 % LAB HEMETOLOGY METHOD 04/14/2024 6:00 AM [facility] MCV 85.5 79.0 - 98.0 FL LAB HEMETOLOGY METHOD 04/14/2024 6:00 AM [facility] MCH 27.8 27.0 - 32.0 pcg LAB HEMETOLOGY METHOD 04/14/2024 6:00 AM [facility] MCHC 32.5 32.0 - 37.0 g/dL LAB HEMETOLOGY METHOD 04/14/2024 6:00 AM [facility] RDW 15.5(H) 11.0 - 15.0 % LAB HEMETOLOGY METHOD 04/14/2024 6:00 AM [facility] Platelets 170 130 - 400 K/mcL LAB HEMETOLOGY METHOD 04/14/2024 6:00 AM [facility] MPV 14.0(H) 7.0 - 11.0 FL LAB HEMETOLOGY METHOD 04/14/2024 6:00 AM [facility] NRBC 0.0 <1.0 % LAB HEMETOLOGY METHOD 04/14/2024 6:00 AM [facility] NRBC Absolute 0.00 <0.10 K/mcL LAB HEMETOLOGY METHOD 04/14/2024 6:00 AM [facility] Blood Venous blood specimen / Unknown Venipuncture / Unknown 04/14/2024 4:20 AM EST 04/14/2024 5:36 AM EST us Iris Ham MD LAB BLOOD ORDERABLES Final Res ult [facility] [address] [place] [address], * (ABNORMAL) Comprehensive metabolic panel (04/14/2024 4:20 AM EST) Sodium 139 133 - 145 mmol/L LAB CHEMISTRY METHOD 04/14/2024 6:48 AM EST [facility] Potassium 4.2 3.5 - 5.5 mmol/L LAB CHEMISTRY METHOD 04/14/2024 6:48 AM [facility] Chloride 110 96 - 110 mmol/L LAB CHEMISTRY METHOD 04/14/2024 6:48 AM [facility] CO2 21 21 - 32 mmol/L LAB CHEMISTRY METHOD 04/14/2024 6:48 AM [facility] Anion Gap 8 3 - 11 LAB CHEMISTRY METHOD 04/14/2024 6:48 AM [facility] Glucose 75 70 - 100 mg/dL LAB CHEMISTRY METHOD 04/14/2024 6:48 AM [facility] BUN 27(H) 5 - 25 mg/dL LAB CHEMISTRY METHOD 04/14/2024 6:48 AM [facility] Creatinine 1.68(H) 0.70 - 1.30 mg/dL LAB CHEMISTRY METHOD 04/14/2024 6:48 AM [facility] eGFR 42(L) >=60 mL/min/1. 73m2 LAB CHEMISTRY METHOD 04/14/2024 6:48 AM [facility] Comment:Calculation based on the??Chronic Kidney Disease Epidemiology Collaboration (CKD-EPI) equation refit??without adjustment for race. BUN/Creatinine Ratio 16.1 LAB CHEMISTRY METHOD 04/14/2024 6:48 AM [facility] Calcium 9.0 8.5 - 10.5 mg/dL LAB CHEMISTRY METHOD 04/14/2024 6:48 AM [facility] AST (SGOT) 98(H) 10 - 42 unit/L LAB CHEMISTRY METHOD 04/14/2024 6:48 AM [facility] Comment:Results verified by repeat testing ALT (SGPT) 92(H) 10 - 60 unit/L LAB CHEMISTRY METHOD 04/14/2024 6:48 AM [facility] Comment:Results verified by repeat testing Alkaline Phosphatase 287(H) 42 - 121 unit/L LAB CHEMISTRY METHOD 04/14/2024 6:48 AM [facility] Total Protein 6.0 6.0 - 8.0 g/dL LAB CHEMISTRY METHOD 04/14/2024 6:48 AM [facility] Albumin 3.0(L) 3.2 - 5.0 g/dL LAB CHEMISTRY METHOD 04/14/2024 6:48 AM [facility] Total Bilirubin 0.9 0.0 - 1.4 mg/dL LAB CHEMISTRY METHOD 04/14/2024 6:48 AM [facility] Blood Venous blood specimen / Unknown Venipuncture / Unknown 04/14/2024 4:20 AM EST 04/14/2024 5:36 AM EST Iris Ham MD LAB BLOOD ORDERABLES Final Res ult [facility] [address] [place] [address], * ECG-Outside (04/14/2024) us Provider Onbase ECG ORDERABLES Final Result * Corey urine culture tube (04/13/2024 6:30 PM EST) Extra Tube Hold for add-ons. 04/13/2024 8:02 PM EST [facility] Comment:Auto resulted. Urine Urine specimen obtained by clean catch procedure / Unknown Non-blood Collection / Unknown 04/13/2024 6:30 PM EST 04/13/2024 6:47 PM EST us Katherine CARY LAB URINE ORDERABLES F inal Result [facility] [address] [place] [address], [place] [phone] * (ABNORMAL) Urinalysis with reflex microscopic and culture (04/13/2024 6:30 PM EST) Specific Gilbert Urine 1.039(H) 1.003 - 1.030 LAB URINALYSIS - AUTOMATED METHOD 04/13/2024 7:10 PM [facility] pH, Urine 5.5 5.0 - 8.0 pH LAB URINALYSIS - AUTOMATED METHOD 04/13/2024 7:10 PM [facility] Leukocytes, Urine Negative Negative LAB URINALYSIS - AUTOMATED METHOD 04/13/2024 7:10 PM [facility] Nitrite, Urine Negative Negative LAB URINALYSIS - AUTOMATED METHOD 04/13/2024 7:10 PM [facility] Protein, Urine Negative <=Trace mg/dL LAB URINALYSIS - AUTOMATED METHOD 04/13/2024 7:10 PM [facility] Glucose, Urine Negative Negative mg/dL LAB URINALYSIS - AUTOMATED METHOD 04/13/2024 7:10 PM [facility] Ketones, Urine Negative Negative mg/dL LAB URINALYSIS - AUTOMATED METHOD 04/13/2024 7:10 PM [facility] Urobilinogen, Urine 0.2 0.2 - 1.0 mg/dL LAB URINALYSIS - AUTOMATED METHOD 04/13/2024 7:10 PM [facility] Bilirubin, Urine Negative Negative LAB URINALYSIS - AUTOMATED METHOD 04/13/2024 7:10 PM [facility] Blood, Urine Negative Negative LAB URINALYSIS - AUTOMATED METHOD 04/13/2024 7:10 PM EST [facility] Urine Urine specimen obtained by clean catch procedure / Unknown Non-blood Collection / Unknown 04/13/2024 6:30 PM EST 04/13/2024 6:47 PM EST Katherine CARY LAB URINE ORDERABLES F inal Result Performing Organization Address [facility]/ZIP Co de Phone Number [facility] [address] [place] [address], [place] [phone] * (ABNORMAL) Blood Culture, Peripheral #2 (04/13/2024 2:58 PM EST) Culture, Blood Fusobacterium species(AA) 04/21/2024 2:58 PM EST [facility] Comment: This is an appended report. These results have been appended to a previously final verified report. Gram Stain Result Anaerobic bottle Gram negative bacilli(AA) 04/21/2024 2:58 PM EST [facility] Comment:This is an appended report. These results have been appended to a previously final verified report. Blood Venous blood specimen / Unknown Venipuncture / Unknown 04/13/2024 2:58 PM EST 04/13/2024 3:41 PM EST Narrative [facility] - 04/21/2024 2:58 PM EST Anaerobic susceptibilty testing is not routinely performed, if further therapeutic inforamation is required, please consult an Infectious Disease Specialist. Katherine CARY LAB MICROBIOLOGY - GEN ERAL ORDERABLES Edited Result - Final [facility] [address] [place] [address], [place] [phone] * MR Abdomen wo and w Contrast [...] Signed Date: 04/13/2024 15:20 ET Workstation ID: [id number] Transcribed By: Self Edit Transcribed Date: 04/13/2024 [...] Signed Date: 04/13/2024 15:20 ET Workstation ID: [id number] Transcribed By: Self Edit Transcribed Date: 04/13/2024 [...] prostate. -------- FINAL REPORT -------- Dictated By: ALLAN KENT Dictated Date: 04/13/2024 11:07 ET Assigned Physician: ALLAN KENT Reviewed and Electronically Signed By: ALLAN KENT Signed Date: 04/13/2024 11:17 ET Workstation ID: [id number] Transcribed By: Self Edit Transcribed Date: 04/13/2024 [...] changes seen throughout the bones. Procedure Note Allan Kent MD - 04/13/2024 PROCEDURE: CT ABDOMEN/PELVIS [...] prostate. -------- FINAL REPORT -------- Dictated By: ALLAN KENT Dictated Date: 04/13/2024 11:07 ET Assigned Physician: ALLAN KENT Reviewed and Electronically Signed By: ALLAN KENT Signed Date: 04/13/2024 11:17 ET Workstation ID: [id number] Transcribed By: Self Edit Transcribed Date: 04/13/2024 11:07 ET Katherine CARY IMG CT PROCEDURES Velvet l Result * Triglycerides (04/13/2024 9:11 AM EST) [facility] Triglycerides 134 0 - 150 mg/dL LAB CHEMISTRY METHOD 04/13/2024 3:58 PM EST [facility] Blood Venous blood specimen / Unknown Venipuncture / Unknown 04/13/2024 9:11 AM EST 04/13/2024 9:20 AM EST Jeanne CARY LAB BLOOD ORDERABLES Fi nal Result [facility] [address] [place] [address], * (ABNORMAL) CBC auto differential (04/13/2024 9:11 AM EST) [facility] WBC 21.8(H) 4.8 - 10.8 K/[facility] HEMETOLOGY METHOD 04/13/2024 9:29 AM [facility] RBC 5.40 4.50 - 5.50 M/[facility] HEMETOLOGY METHOD 04/13/2024 9:29 AM EST [facility] Hemoglobin 15.2 13.5 - 17.5 g/dL LAB HEMETOLOGY METHOD 04/13/2024 9:29 AM [facility] Hematocrit 47.2 42.0 - 54.0 % LAB HEMETOLOGY METHOD 04/13/2024 9:29 AM [facility] MCV 87.6 79.0 - 98.0 FL LAB HEMETOLOGY METHOD 04/13/2024 9:29 AM [facility] MCH 28.2 27.0 - 32.0 pcg LAB HEMETOLOGY METHOD 04/13/2024 9:29 AM [facility] MCHC 32.2 32.0 - 37.0 g/dL LAB HEMETOLOGY METHOD 04/13/2024 9:29 AM [facility] RDW 15.2(H) 11.0 - 15.0 % LAB HEMETOLOGY METHOD 04/13/2024 9:29 AM [facility] Platelets 207 130 - 400 K/mcL LAB HEMETOLOGY METHOD 04/13/2024 9:29 AM [facility] MPV 13.6(H) 7.0 - 11.0 FL LAB HEMETOLOGY METHOD 04/13/2024 9:29 AM [facility] NRBC 0.0 <1.0 % LAB HEMETOLOGY METHOD 04/13/2024 9:29 AM [facility] NRBC Absolute 0.00 <0.10 K/mcL LAB HEMETOLOGY METHOD 04/13/2024 9:29 AM [facility] Neutrophils Relative 75.1 % LAB HEMETOLOGY METHOD 04/13/2024 9:29 AM [facility] Lymphocytes Relative 10.4 % LAB HEMETOLOGY METHOD 04/13/2024 9:29 AM [facility] Monocytes Relative 4.8 % LAB HEMETOLOGY METHOD 04/13/2024 9:29 AM [facility] Eosinophils Relative 8.8 % LAB HEMETOLOGY METHOD 04/13/2024 9:29 AM [facility] Basophils Relative 0.2 % LAB HEMETOLOGY METHOD 04/13/2024 9:29 AM [facility] Immature Granulocytes Relative 0.7 % LAB HEMETOLOGY METHOD 04/13/2024 9:29 AM [facility] Neutrophils Absolute 16.37(H) 1.50 - 7.00 K/mcL LAB HEMETOLOGY METHOD 04/13/2024 9:29 AM [facility] Lymphocytes Absolute 2.26 1.00 - 5.00 K/mcL LAB HEMETOLOGY METHOD 04/13/2024 9:29 AM [facility] Monocytes Absolute 1.04(H) 0.20 - 1.00 K/mcL LAB HEMETOLOGY METHOD 04/13/2024 9:29 AM EST [facility] Eosinophils Absolute 1.91(H) 0.00 - 0.50 K/mcL LAB HEMETOLOGY METHOD 04/13/2024 9:29 AM [facility] Basophils Absolute 0.04 0.00 - 0.20 K/mcL LAB HEMETOLOGY METHOD 04/13/2024 9:29 AM [facility] Immature Granulocytes Absolute 0.15(H) 0.00 - 0.03 K/mcL LAB HEMETOLOGY METHOD 04/13/2024 9:29 AM [facility] Blood Venous blood specimen / Unknown Venipuncture / Unknown 04/13/2024 9:11 AM EST 04/13/2024 9:20 AM EST Varun Barrientos MD LAB BLOOD ORDERABLES Final Res ult [facility] [address] [place] [address], * (ABNORMAL) Lipase (04/13/2024 9:11 AM EST) Lipase 4,518(H) 13 - 75 unit/L LAB CHEMISTRY METHOD 04/13/2024 9:56 AM EST [facility] Blood Venous blood specimen / Unknown Venipuncture / Unknown 04/13/2024 9:11 AM EST 04/13/2024 9:20 AM EST Varun Barrientos MD LAB BLOOD ORDERABLES Final Res ult [facility] [address] [place] [address], [place] [phone] * (ABNORMAL) Magnesium (04/13/2024 9:11 AM EST) Pathologist [facility] [place] Magnesium 1.8(L) 1.9 - 2.6 mg/dL LAB CHEMISTRY METHOD 04/13/2024 9:50 AM EST [facility] Blood Venous blood specimen / Unknown Venipuncture / Unknown 04/13/2024 9:11 AM EST 04/13/2024 9:20 AM EST Varun Barrientos MD LAB BLOOD ORDERABLES Final Res ult [facility] [address] [place] [address], [place] [phone] * (ABNORMAL) Comprehensive metabolic panel (04/13/2024 9:11 AM EST) Pathologist [facility] [place] Sodium 140 133 - 145 mmol/L LAB CHEMISTRY METHOD 04/13/2024 9:50 AM EST [facility] Potassium 4.8 3.5 - 5.5 mmol/L LAB CHEMISTRY METHOD 04/13/2024 9:50 AM EST [facility] Chloride 108 96 - 110 mmol/L LAB CHEMISTRY METHOD 04/13/2024 9:50 AM [facility] CO2 20(L) 21 - 32 mmol/L LAB CHEMISTRY METHOD 04/13/2024 9:50 AM [facility] Anion Gap 12(H) 3 - 11 LAB CHEMISTRY METHOD 04/13/2024 9:50 AM [facility] Glucose 137(H) 70 - 100 mg/dL LAB CHEMISTRY METHOD 04/13/2024 9:50 AM [facility] BUN 29(H) 5 - 25 mg/dL LAB CHEMISTRY METHOD 04/13/2024 9:50 AM [facility] Creatinine 1.91(H) 0.70 - 1.30 mg/dL LAB CHEMISTRY METHOD 04/13/2024 9:50 AM [facility] eGFR 36(L) >=60 mL/min/1. 73m2 LAB CHEMISTRY METHOD 04/13/2024 9:50 AM [facility] Comment:Calculation based on the??Chronic Kidney Disease Epidemiology Collaboration (CKD-EPI) equation refit??without adjustment for race. BUN/Creatinine Ratio 15.2 LAB CHEMISTRY METHOD 04/13/2024 9:50 AM [facility] Calcium 9.9 8.5 - 10.5 mg/dL LAB CHEMISTRY METHOD 04/13/2024 9:50 AM [facility] AST (SGOT) 47(H) 10 - 42 unit/L LAB CHEMISTRY METHOD 04/13/2024 9:50 AM [facility] ALT (SGPT) 28 10 - 60 unit/L LAB CHEMISTRY METHOD 04/13/2024 9:50 AM [facility] Alkaline Phosphatase 208(H) 42 - 121 unit/L LAB CHEMISTRY METHOD 04/13/2024 9:50 AM [facility] Total Protein 6.8 6.0 - 8.0 g/dL LAB CHEMISTRY METHOD 04/13/2024 9:50 AM [facility] Albumin 3.3 3.2 - 5.0 g/dL LAB CHEMISTRY METHOD 04/13/2024 9:50 AM [facility] Total Bilirubin 1.0 0.0 - 1.4 mg/dL LAB CHEMISTRY METHOD 04/13/2024 9:50 AM [facility] Blood Venous blood specimen / Unknown Venipuncture / Unknown 04/13/2024 9:11 AM EST 04/13/2024 9:20 AM EST Varun Barrientos MD LAB BLOOD ORDERABLES Final Res ult [facility] [address] [place] [address], * Respiratory virus panel molecular study (04/13/2024 9:05 AM EST) Adenovirus Detection by PCR Not Detected Not Detected LAB MICROBIOLOGY METHOD 04/13/2024 10:13 AM [facility] Influenza A PCR Not Detected Not Detected LAB MICROBIOLOGY METHOD 04/13/2024 10:13 AM [facility] Influenza B PCR Not Detected Not Detected LAB MICROBIOLOGY METHOD 04/13/2024 10:13 AM [facility] Coronavirus 229E Not Detected Not Detected LAB MICROBIOLOGY METHOD 04/13/2024 10:13 AM [facility] Coronavirus HKU1 Not Detected Not Detected LAB MICROBIOLOGY METHOD 04/13/2024 10:13 AM [facility] Coronavirus OC43 Not Detected Not Detected LAB MICROBIOLOGY METHOD 04/13/2024 10:13 AM [facility] Coronavirus NL63 Not Detected Not Detected LAB MICROBIOLOGY METHOD 04/13/2024 10:13 AM [facility] Parainfluenza Virus 1 Not Detected Not Detected LAB MICROBIOLOGY METHOD 04/13/2024 10:13 AM [facility] Parainfluenza Virus 2 Not Detected Not Detected LAB MICROBIOLOGY METHOD 04/13/2024 10:13 AM [facility] Parainfluenza Virus 3 Not Detected Not Detected LAB MICROBIOLOGY METHOD 04/13/2024 10:13 AM [facility] Parainfluenza Virus 4 Not Detected Not Detected LAB MICROBIOLOGY METHOD 04/13/2024 10:13 AM [facility] RSV PCR Not Detected Not Detected LAB MICROBIOLOGY METHOD 04/13/2024 10:13 AM [facility] Human Metapneumovirus A and B Not Detected Not Detected LAB MICROBIOLOGY METHOD 04/13/2024 10:13 AM [facility] Rhinovirus/Entero virus Not Detected Not Detected LAB MICROBIOLOGY METHOD 04/13/2024 10:13 AM [facility] Bordetella pertussis Not Detected Not Detected LAB MICROBIOLOGY METHOD 04/13/2024 10:13 AM [facility] Bordetella parapertussis Not Detected Not Detected LAB MICROBIOLOGY METHOD 04/13/2024 10:13 AM [facility] Mycoplasma pneumo by PCR Not Detected Not Detected LAB MICROBIOLOGY METHOD 04/13/2024 10:13 AM [facility] Chlamydia pneumoniae Not Detected Not Detected LAB MICROBIOLOGY METHOD 04/13/2024 10:13 AM [facility] SARS COV-2 Not Detected Not Detected LAB MICROBIOLOGY METHOD 04/13/2024 10:13 AM [facility] Swab Both anterior nares / Unknown Non-blood Collection / Unknown 04/13/2024 9:05 AM EST 04/13/2024 9:20 AM [facility] - 04/13/2024 10:13 AM EST Testing was performed using the IMT Respiratory Pathogen PCR Assay. All results must [...] that are below the limit of detection. us Varun Barrientos MD LAB MICROBIOLOGY - GENERAL ORD ERABLES Final Result [facility] [address] [place] [address], documented in this encounter Visit Diagnoses Diagnosis Acute pancreatitis, unspecified complication status, unspecified pancreatitis type- Primary Acute pancreatitis, unspecified complication status, unspecified pancreatitis type documented in this encounter Admitting Diagnoses Diagnosis Acute pancreatitis, unspecified complication status, unspecified pancreatitis type documented in this encounter Administered Medications Inactive Administered Medications - up to 3 most recent administrations Medication Order MAR Action Action Date Dose Rate Site amLODIPine (NORVASC) tablet 10 mg 10 mg, oral, Daily, First dose on Sat04/14/24 at 1230 Given 04/14/2024 12:08 PM EST 10 mg enoxaparin (LOVENOX) injection 40 mg 40 mg, subcutaneous, Every 24 hours scheduled, First dose on Sat04/13/24 at 1528, Indication: VTE/PE Prophylaxis Given 04/15/2024 8:17 AM EST 40 mg Right Upper Abdomen Given 04/14/2024 8:53 AM EST 40 mg Ri ght Lower Abdomen Given 04/13/2024 7:48 PM EST 40 mg Ri ght Lower Abdomen gadoterate meglumine (CLARISCAN, DOTAREM) injection 20 mL 20 mL, intravenous, Once in imaging, Starting on Sat04/13/24 at 1408, For 1 dose Given 04/13/2024 2:21 PM EST 20 mL Left Antecubital hydrALAZINE (APRESOLINE) injection 10 mg 10 mg, intravenous, Every 8 hours PRN, systolic BP greater than:, 170, Starting on Sat04/13/24 at 1741 hydrALAZINE (APRESOLINE) tablet 25 mg 25 mg, oral, 2 times daily, First dose on Sat04/14/24 at 1230 Given 04/15/2024 8:17 AM EST 25 mg Given 04/14/2024 8:32 PM EST 25 mg Given 04/14/2024 12:08 PM EST 25 mg HYDROmorphone (PF) injection 0.5 mg 0.5 mg, intravenous, Once, On Sat04/13/24 at 0952, For 1 dose Given 04/13/2024 10:14 AM EST 0.5 mg HYDROmorphone (PF) injection 0.5 mg 0.5 mg, intravenous, Every 4 hours PRN, moderate pain, Starting on Sat04/13/24 at 1952 Given 04/15/2024 5:55 AM EST 0.5 mg Given 04/14/2024 8:33 PM EST 0.5 mg HYDROmorphone (PF) injection 1 mg 1 mg, intravenous, Every 6 hours PRN, severe pain, Starting on Sat04/13/24 at 1952 Given 04/13/2024 9:15 PM EST 1 mg iopamidoL (ISOVUE-370) 370 mg iodine /mL (76 %) injection 90 mL 90 mL, intravenous, Once in imaging, Starting on Sat04/13/24 at 1051, For 1 dose Given 04/13/2024 10:54 AM EST 90 mL lactated Ringer's infusion 100 mL/hr, intravenous, Continuous, Starting on Sat04/13/24 at 1528 New Bag 04/15/2024 8:18 AM EST 100 mL/hr 100 mL/hr New Bag 04/14/2024 10:29 PM EST 100 mL/hr 100 mL/hr Rate/Dose Change 04/14/2024 3:38 PM EST 100 mL/hr 100 mL/ hr magnesium sulfate 2 gram/50 mL (4 %) IVPB 2 g 2 g, intravenous, at 25 mL/hr, Administer over 2 Hours, Once, On Sat04/13/24 at 1454, For 1 dose New Bag 04/13/2024 7:44 PM EST 2 g 25 mL/hr metoprolol tartrate (LOPRESSOR) tablet 100 mg 100 mg, oral, 2 times daily, First dose on Sat04/14/24 at 1230 Given 04/15/2024 8:17 AM EST 100 mg Given 04/14/2024 12:07 PM EST 100 mg ondansetron (PF) (ZOFRAN) injection 4 mg 4 mg, intravenous, Once, On Sat04/13/24 at 0952, For 1 dose Given 04/13/2024 10:13 AM EST 4 mg ondansetron (PF) (ZOFRAN) injection 4 mg 4 mg, intravenous, Every 8 hours PRN, nausea, vomiting, Starting on Sat04/14/24 at 2228 pantoprazole (PROTONIX) EC tablet 40 mg 40 mg, oral, 2 times daily before meals, First dose on Sat04/14/24 at 1630, Do not crush, chew, or split. Given 04/15/2024 8:17 AM EST 40 mg Given 04/14/2024 4:24 PM EST 40 mg piperacillin-tazobactam (ZOSYN) 3.375 g in sodium chloride 0.9 % 100 mL IVPB 3.375 g, intravenous, at 200 mL/hr, Administer over 30 Minutes, Once, On Sat04/13/24 at 1245, For 1 dose, Do not administer through same line as lactated ringer? s fluids (LR), Indication: Intra-abdominal New Bag 04/13/2024 6:33 PM EST 3.375 g 200 mL/hr pravastatin (PRAVACHOL) tablet 40 mg 40 mg, oral, Daily, First dose (after last modification) on Sat04/16/24 at 0900 sodium chloride 0.9 % bolus 1,000 mL 1,000 mL, intravenous, at 1,000 mL/hr, Administer over 1 Hours, Once, On Sat04/13/24 at 0952, For 1 dose New Bag 04/13/2024 10:13 AM EST 1,000 mL 1000 mL/hr sodium chloride 0.9 % flush 10 mL 10 mL, intravenous, Once, On Sat04/13/24 at 1053, For 1 dose Given 04/13/2024 10:54 AM EST 10 mL sodium chloride 0.9 % flush 10 mL 10 mL, intravenous, Once, On Sat04/13/24 at 1409, For 1 dose Given 04/13/2024 2:21 PM EST 10 mL Left Antecubital zolpidem (AMBIEN) tablet 5 mg 5 mg, oral, Nightly, First dose on Sat04/14/24 at 2100 Given 04/14/2024 8:33 PM EST 5 mg documented in this encounter Discontinued Medications Medication Sig Discontinue Reason Start Date End Da te celecoxib (CeleBREX) 200 mg capsule Take 1 capsule (200 mg total) by mouth 1 (one) time each day. Entered in Error 03/08/2024 04/13/2024 sucralfate (CARAFATE) 1 gram tablet Take 2 tablets (2 g total) by mouth 2 (two) times a day before meals. Stop Taking at Discharge 03/20/2024 04/15/2024 documented as of this encounter Historical Medications * This list may reflect changes made after this encounter. pantoprazole (PROTONIX) 40 mg EC tablet Take 1 tablet (40 mg total) by mouth 1 (one) time each day before breakfast. May take additional dose as needed for acid reflux zolpidem (AMBIEN) 10 mg tablet Take 1 tablet (10 mg total) by mouth at bedtime as needed. 04/03/2024 QUEtiapine (SEROquel) 50 mg tablet Take 1 tablet (50 mg total) by mouth at bedtime. 03/20/2024 pravastatin (PRAVACHOL) 40 mg tablet Take 1 tablet (40 mg total) by mouth 1 (one) time each day. 04/05/2024 metoprolol tartrate (LOPRESSOR) 100 mg tablet Take 1 tablet (100 mg total) by mouth 2 (two) times a day with meals. 02/20/2024 lisinopril (PRINIVIL,ZESTRI L) 40 mg tablet Take 1 tablet (40 mg total) by mouth 1 (one) time each day. for 30 days 02/19/2024 hydrALAZINE (APRESOLINE) 25 mg tablet Take 1 tablet (25 mg total) by mouth 2 (two) times a day with meals. 03/22/2024 gabapentin (NEURONTIN) 100 mg capsule Take 1 capsule (100 mg total) by mouth 2 (two) times a day. 02/24/2024 amLODIPine (NORVASC) 10 mg tablet Take 1 tablet (10 mg total) by mouth 1 (one) time each day. 02/23/2024 sucralfate (CARAFATE) 1 gram tablet Take 2 tablets (2 g total) by mouth 2 (two) times a day before meals. 03/20/2024 celecoxib (CeleBREX) 200 mg capsule Take 1 capsule (200 mg total) by mouth 1 (one) time each day. 03/08/2024 5 added in this encounter Active and Recently Administered Medications Times are shown in EST. Scheduled Medication Order 04/13/2024 04/14/2024 04/15/2024 amLODIPine (NORVASC) tablet 10 mg 10 mg, oral, Daily, First dose on Sat04/14/24 at 1230 1208 (Given - Provider: Jeanette Hendricks, RN) 0817 (Not Given - Provider: Evi Mckeon, RN - Reason: Patient/Resident/Agen t refused - education provided ) enoxaparin (LOVENOX) injection 40 mg 40 mg, subcutaneous, Every 24 hours scheduled, First dose on Sat04/13/24 at 1528, Indication: VTE/PE Prophylaxis 1948 (Given - Provider: Jeanna Rojas, RN) 0853 (Given - Provider: Henrietta Romero RN) 0817 (Given - Provider: Evi Mckeon, MARIA D) gadoterate meglumine (CLARISCAN, DOTAREM) injection 20 mL (COMPLETED) 20 mL, intravenous, Once in imaging, Starting on Sat04/13/24 at 1408, For 1 dose 1421 (Given - Provider: Bobbi Casillas) hydrALAZINE (APRESOLINE) tablet 25 mg 25 mg, oral, 2 times daily, First dose on Sat04/14/24 at 1230 1208 (Given - Provider: Jeanette Hendricks, MARIA D)2031 (Given - Provider: Bismark Quiroz, MARIA D) 0817 (Given - Provider: Evi Mckeon, MARIA D) HYDROmorphone (DILAUDID) injection 1 mg 1 mg, intravenous, Once, On Sat04/13/24 at 1257, For 1 dose 1837 (Not Given - Provider: Jeanna Rojas RN - Reason: Order parameters not met - Comment: PT NOT IN PAIN) HYDROmorphone (PF) injection 0.5 mg (COMPLETED) 0.5 mg, intravenous, Once, On Sat04/13/24 at 0952, For 1 dose 1014 (Given - Provider: Maria T Thomas, MARIA D) iopamidoL (ISOVUE-370) 370 mg iodine /mL (76 %) injection 90 mL (COMPLETED) 90 mL, intravenous, Once in imaging, Starting on Sat04/13/24 at 1051, For 1 dose 1054 (Given - Provider: Mona Jewell) magnesium sulfate 2 gram/50 mL (4 %) IVPB 2 g (COMPLETED) 2 g, intravenous, at 25 mL/hr, Administer over 2 Hours, Once, On Sat04/13/24 at 1454, For 1 dose 1943 (New Bag - Provider: Jeanna Rojas RN)2143 (Stopped - Provider: Wing Larkin RN) metoprolol tartrate (LOPRESSOR) tablet 100 mg 100 mg, oral, 2 times daily, First dose on Sat04/14/24 at 1230 1207 (Given - Provider: Jeaentte Hendricks RN)2031 (Not Given - Provider: Bismark Quiroz RN - Reason: Change in vital signs - Comment: heart rate in the 50s) 0817 (Given - Provider: Evi Mckeon, MARIA D) ondansetron (PF) (ZOFRAN) injection 4 mg (COMPLETED) 4 mg, intravenous, Once, On Sat04/13/24 at 0952, For 1 dose 1013 (Given - Provider: Maria T Thomas RN) pantoprazole (PROTONIX) EC tablet 40 mg 40 mg, oral, 2 times daily before meals, First dose on Sat04/14/24 at 1630, Do not crush, chew, or split. 1624 (Given - Provider: Jeanette Hendricks RN) 0817 (Given - Provider: Evi Mckeon, MARIA D) piperacillin-tazobacta m (ZOSYN) 3.375 g in sodium chloride 0.9 % 100 mL IVPB (COMPLETED) 3.375 g, intravenous, at 200 mL/hr, Administer over 30 Minutes, Once, On Sat04/13/24 at 1245, For 1 dose, Do not administer through same line as lactated ringer? s fluids (LR), Indication: Intra-abdominal 1832 (New Bag - Provider: Jeanna Rojas, RN)1935 (Stopped - Provider: Jeanna Rojas, RN) pravastatin (PRAVACHOL) tablet 40 mg 40 mg, oral, Daily, First dose (after last modification) on Sat04/16/24 at 0900 sodium chloride 0.9 % bolus 1,000 mL (COMPLETED) 1,000 mL, intravenous, at 1,000 mL/hr, Administer over 1 Hours, Once, On Sat04/13/24 at 0952, For 1 dose 1013 (New Bag - Provider: Maria T Thomas, RN)1740 (Stopped - Provider: Jeanna Rojas, RN) sodium chloride 0.9 % bolus 1,000 mL 1,000 mL, intravenous, at 1,000 mL/hr, Administer over 1 Hours, Once, On Sat04/13/24 at 1300, For 1 dose 1843 (Not Given - Provider: Jeanna Rojas, RN - Reason: Other - Comment: PROVIDER STEPHANIE DOES NOT WANT SECOND BOLUS) sodium chloride 0.9 % flush 10 mL (COMPLETED) 10 mL, intravenous, Once, On Sat04/13/24 at 1053, For 1 dose 1054 (Given - Provider: Mona Jewell) sodium chloride 0.9 % flush 10 mL (COMPLETED) 10 mL, intravenous, Once, On Sat04/13/24 at 1409, For 1 dose 1421 (Given - Provider: Bobbi Casillas) zolpidem (AMBIEN) tablet 5 mg 5 mg, oral, Nightly, First dose on Sat04/14/24 at 2100 2032 (Given - Provider: Bismark Quiroz, MARIA D) Continuous Medication Order 04/13/2024 04/14/2024 04/15/2024 lactated Ringer's infusion 100 mL/hr, intravenous, Continuous, Starting on Sat04/13/24 at 1528 1938 (New Bag - Provider: Jeanna Rojas, RN) 0345 (New Bag - Provider: Wing Larkin, RN)1247 (New Bag - Provider: Dayna Marin, RN)1538 (Rate/Dose Change - Provider: Jeanette Hendricks, RN)2229 (New Bag - Provider: Bismark Quiroz, RN) 0818 (New Bag - Provider: Evi Mckeon, MARIA D)1420 (Due: Stopped) PRN Medication Order 04/13/2024 04/14/2024 04/15/2024 hydrALAZINE (APRESOLINE) injection 10 mg 10 mg, intravenous, Every 8 hours PRN, systolic BP greater than:, 170, Starting on Sat04/13/24 at 1741 HYDROmorphone (PF) injection 0.5 mg 0.5 mg, intravenous, Every 4 hours PRN, moderate pain, Starting on Sat04/13/24 at 1952 2033 (Given - Provider: Bismark Quiroz, MARIA D) 0555 (Given - Provider: Bismark Quiroz RN) HYDROmorphone (PF) injection 1 mg 1 mg, intravenous, Every 6 hours PRN, severe pain, Starting on 04/13/24 at 1951 2114 (Given - Provider: Jeanna Rojas RN) ondansetron (PF) (ZOFRAN) injection 4 mg 4 mg, intravenous, Every 8 hours PRN, nausea, vomiting, Starting on Sat04/14/24 at 2228 documented in this encounter Orders Medications Ordered That Jadon ht Not Have Been Administered Count Last Ordered Date First Ordered Date ondansetron (PF) (ZOFRAN) injection 4 mg 1 04/14/2024 pravastatin (PRAVACHOL) tablet 40 mg 2 03/22 hydrALAZINE (APRESOLINE) injection 10 mg 1 04/13/2024 HYDROmorphone (DILAUDID) injection 1 mg 1 0 04/13/2024 sodium chloride 0.9 % bolus 1,000 mL 1 03/22 Admission Count Last Ordered Date First Orde red Date INITIATE OBSERVATION STATUS 1 04/14/2024 ADMIT TO INPATIENT 1 04/13/2024 Transfer Count Last Ordered Date First Orde red Date ED TO FLOOR BED REQUEST 1 04/13/2024 Discharge Count Last Ordered Date First Orde red Date DISCHARGE PATIENT 1 04/15/2024 documented in this encounter Additional Health Concerns Infection Onset Date Last Indicated Resolved Time Respiratory Rule-Out 04/13/2024 04/13/2024 025 10:13 AM EST COVID-19 Rule-Out 04/13/2024 04/13/2024 04/13/2024 10:13 AM EST documented as of this encounter Care Teams [employer] Tester Relationship Specialty Start Date End Date Tyrell Watts MD [address] [place] [address] PCP - General Internal Medicine 02/01/21 documented as of this encounter
== END 2024-05-06 11:41 | disposition home or self-care (01) ==
LOC: HO.HOS 10:58
PROVIDERS: PCP Internal Medicine; Visit Provider Orthopaedic Surgery
DX: M17.0 Bilateral primary osteoarthritis of knee (principal)
CPT/HCPCS: 20610; 99213

== ENCOUNTER → 2024-05-06 10:57 | Outpatient (BNVA) | payer MEDICARE, MEDICAID, SELFPAY | PROVIDERS: PCP Internal Medicine; Visit Provider Orthopaedic Surgery | DX: M17.0 Bilateral primary osteoarthritis of knee (principal) | CPT/HCPCS: 20610; 99212; J1010; J2003 ==

== ENCOUNTER 2024-08-06 11:01 | Outpatient (AMB) | payer MEDICARE, MEDICAID, SELFPAY ==
--- NOTE | 2024-08-06 11:11 | A.OFFVIS_ITS ---
Vital Signs 08/06/24 11:15 Height 5 ft Weight 197 lb BMI 38.5 Intake Visit Reasons: Inj-B/L knee injection-last inj. 05/06/24 Intake Note: Justa is a 78 year old male who presents today for follow up of bilateral knee pain. He was given bilateral knee injections on 05/06/24 which gave him fairly good relief. His pain has returned. He has tried Tylenol and Celebrex w hich gave him mild relief. He wishes to hold off on surgery if at all possible. Allergies No Known Allergies Allergy (Verified 08/06/24 11:15) Medication List - Last Reconciled 08/06/24 by Fabrice Barragan MD amlodipine 10 mg PO DAILY celecoxib (Celebrex) 200 mg PO DAILY 3 months gabapentin mg PO hydralazine 25 mg PO BID lisinopril 40 mg PO DAILY metoprolol tartrate 100 mg PO BID pantoprazole 40 mg PO BID pravastatin 40 mg PO DAILY PFSH Surgical History (Updated 07/10/23 @ 10:49 by Jagruti Michaels CMA) Hx of cholecystectomy Hx of appendectomy Social History (Updated 07/10/23 @ 10:49 by Jagruti Michaels CMA) Patient Tobacco Use Status: Never used Tobacco Current occupational status: retired Physical Exam Vital Signs: BMI result Body Mass Index 38.5 Const Other: Well-nourished well-developed very friendly male awake alert and oriented x3 in no acute distress Extrem Other: Bilateral lower extremity examination shows good capillary refill, no skin lesions noted, normal sensation light touch Bilateral knee examination shows minimal effusion, palpable crepitus with range of motion, pain with range of motion, no instability Office Procedures AMB Joint Injection/Aspiration Joint Injection/Aspiration Primary Site: left knee Prep: site was prepped using aseptic technique Injected: 40 mg of, DepoMedrol and 1% plain lidocaine Procedure: The patient tolerated the procedure well Coding 90934 - Large joint Procedure code (CPT) selection complete AMB Joint Injection/Aspiration Joint Injection/Aspiration Primary Site: right knee Prep: site was prepped using aseptic technique Injected: 40 mg of, DepoMedrol and 1% plain lidocaine Procedure: The patient tolerated the procedure well Coding 11690 - Large joint Procedure code (CPT) selection complete Results Reviewed Results Reviewed: X-rays of the patient's bilateral knees taken previously show joint space narrowing, subchondral sclerosis, no acute bony abnormalities Assessment & Plan Assessment & Plan (1) Arthritis of left knee: Code(s): M17.12 - Unilateral primary osteoarthritis, left knee Category: Medical (2) Arthritis of right knee: Code(s): M17.11 - Unilateral primary osteoarthritis, right knee Category: Medical Plan Mr. Murrieta presents with bilateral knee pains due to degenerative joint disease. The risks and benefits of bilateral knee cortisone injections were discussed at length with the patient. The patient wished to proceed. He tolerated the injections well. He will continue with his home exercise program. He will contact me prior to his follow-up appointment in 3 months should any questions or concerns arise. Feel free to call me at any time should questions regarding his orthopedic management arise. I spent 22 minutes in reviewing the patient's records and imaging studies, seeing the patient and documenting in the medical record. Orders: Orders AMB Joint Injection/Aspiration Today M17.12 - Unilateral primary osteoarthritis, left knee AMB Joint Injection/Aspiration Today M17.11 - Unilateral primary osteoarthritis, right knee Coding Level of Care Code Est Pt Level 3 (81666) Complex EM visit Add On G2211 Diagnoses Arthritis of left knee M17.12 Arthritis of right knee M17.11 CPT Codes Coding - 40066 Large joint: 93165 - Large joint ([id number]) Coding - 54858 Large joint: 71358 - Large joint ([id number])
[2024-08-06 11:15] VITALS: BMI 38.5
--- OUTSIDE RECORDS SUMMARY | 2024-08-06 12:38 | XMS_ITS | Data Portability ---
Author Organization [facility] Pain Managem ANDREA noriega PAIN OFFICE Address [address] [place] [address] Care Team Providers Care Assistant Professor Sculpture Name Role Phone АЛЕКСАНДР BROOKS Primary Care [...] booked for the same. He needs a driver utility worker on the day of the procedure. tmanikantan [...] booked for the same. He needs a driver utility worker on the day of the procedure. tmanikantan [...] booked for the same. He needs a driver utility worker on the day of the procedure. tmanikantan [...] By Organization Details Last Modified Time 03/18/2019 [id number] He was advised against bed rest lasting longer than four days and to continue activities as tolerated. tmanikantan Not available 03/18/2019 11:38:54 04/14/2019 [id number] He was advised to continue with home exercise program tmanikantan Not available 04/14/2019 11:29:15 He was advised against bed rest lasting longer than four days and to continue activities as tolerated. tmanikantan Not available 04/14/2019 11:29:17 11/10/2019 [id number] He was advised against bed rest lasting [...] care. tmanikantan Not available 11/11/2019 09:59:16 11/04/2020 40206 He was advised against bed rest lasting longer than four days and to continue activities as tolerated. tmanikantan Not available 11/04/2020 10:10:07 11/08/2020 17094 He was advised to continue with home [...] w/o contr ast [facility] - [place] field Access ion Number : [id number] 4.3 Patiyohan t Name : Jesika Scanlon y Medica l Record Number : [id number] Date of : 1945 Date of Exam : 2019 Referr ing Physic isela : KEM LAZARDaniel, MARTYMarli [facility] [address] [place] [address] Exam : MR - LUMBAR SPINE (C-) CPT 38270 - Room Descri ption : Craven Siem Espr 2 1.5 Techni que : [...] e disc bulge, ligame ntum flavum thicke cde, facet joint arthro rhonda, and promin ent [...] as well as narrow ing the canal almond blancher operator ior to the superi or aspect of [...] WARNER MD (Signa paulettee on file) 2019 [facility] [address] [facility] [place], [address], 03/18/2019 11:09:20 03/03/19 20 03/02/2019 MRI, lumba r spine , w/o contr ast No observ ation record ed. [facility] ([facility] [address], [place], [address], 03/18/2019 11:03:23 Result Notes None recorded. 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 Procedures Surgical History Date Name Laterality Status Provider Name and Address Organization Details Recorded Time 11/09/19 21 Lumbar Epidural steroid injection under fluoroscopic guidance completed José Antonio Umanzor MD [address] , [address], [place], [address], [place] [facility] 11/08/2020 11:23:58 04/14/19 20 Lumbar Epidural steroid injection under fluoroscopic guidance completed José Antonio Umanzor MD [address] , [address], [place], [address], [place] [facility] 04/14/2019 11:31:21 08/30/19 16 Lumbar Epidural steroid injection under fluoroscopic guidance completed José Antonio Umanzor MD [address] , [address], [place], [address], [place] [facility] 09/01/2015 13:37:26 05/31/19 16 Lumbar Epidural steroid injection under fluoroscopic guidance completed José Antonio Umanzor MD [address] , [address], [place], [address], [place] [facility] 05/31/2015 14:20:54 11/10/19 15 Lumbar Epidural steroid injection under fluoroscopic guidance completed José Antonio Umanzor MD [address] , [address], [place], [address], [place] [facility] 11/09/2014 14:39:42 08/11/19 15 Lumbar Epidural steroid injection under fluoroscopic guidance completed José Antonio Umanzor MD [address] , [address], [place], [address], [place] - [facility] 08/12/2014 14:30:47 12/23/19 13 Lumbar Epidural steroid injection under fluoroscopic guidance completed José Antonio Umanzro MD [address] , [address], [place], [address], [place] [facility] 12/23/2012 14:13:41 11/13/19 13 Lumbar Epidural steroid injection under fluoroscopic guidance completed José Antonio Umanzor MD [address] , [address], [place], [address], [place] [facility] 11/18/2012 13:56:25 Cholecystectomy completed Josephine Fitzpatrick [place] - [facility] 11/05/2012 08:26:57 Appendectomy completed Josephine Fitzpatrick [place] - [facility] 11/05/2012 08:26:57 Imaging Results None recorded. Procedure Notes None recorded. Medical Equipment None [...] Updated DateTime 0 170.18 cm 38.7 kg/m2 413728. 32 g 57 /min 98 % 98 % 132 mm[Hg] 53 mm[Hg] José Antonio freed MD [address] , [address], [place], [address], [place] - [facility] 0 10:58:47 Date Recorded Body height Body mass index (BMI) Body weight Heart rate Oxygen saturation Oxygen saturation in Arterial blood by Pulse oximetry Systolic blood pressure Diastolic blood pressure Provider Name and Address Organization Details Last Updated DateTime 0 170.18 cm 38.7 kg/m2 943156. 32 g 56 /min 95 % 95 % 137 mm[Hg] 44 mm[Hg] Lonny freed [place] - [facility] 0 09:18:40 Date Recorded Body height Heart rate Oxygen saturation Oxygen saturation in Arterial blood by Pulse oximetry Body mass index (BMI) Body weight Systolic blood pressure Diastolic blood pressure Provider Name and Address Organization Details Last Updated DateTime 1 170.18 cm 56 /min 95 % 95 % 37.4 kg/m2 033997. 58 g 126 mm[Hg] 44 mm[Hg] José Antonio freed MD [address] , [address], [place] [facility] [place], [address], [place] - [facility] 1 09:16:16 Date Recorded Body height Heart rate Oxygen saturation Oxygen saturation in Arterial blood by Pulse oximetry Systolic blood pressure Diastolic blood pressure Provider Name and Address Organization Details Last Updated DateTime 1 170.18 cm 52 /min 95 % 95 % 136 mm[Hg] 50 mm[Hg] Kelsey Stokes [place] - [facility] 1 11:04:12 Social History Question Answer Notes LastModified by Organizat ion Details LastModified Time Tobacco Smoking Status Never Smoker Not Available [employer] 12/04/2019 03:16:10 Which Illicit Or Recreational Drugs Have You Used? No [id number] Information not available 12/04/2019 Education 12 Information no t available 11/05/2012 Live Alone Or With Others? Alone Information not available 11/05/2012 Marital Status [email or web address] Informatio n not available 11/05/2012 What Was The Date Of Your Most Recent Tobacco Screening? 07/03/2018 [id number] Information not available 12/04/2019 Sex: Unknown Functional Status Question Answer Note LastModified by Organizat ion Details LastModified Time What is your level of alcohol consumption? Occasional [id number] Information not available 12/04/2019 Are you currently employed? Yes Retired [id number] Information not available 12/04/2019 Mental Status None recorded. Family History Nothing Reported. Medical History Condition Response Kidney Stones Y GERD/Reflux Y High Cholesterol Y Hypertension Y Kidney Disease Y Past Encounters Encounter ID Performer Location Encounter Start Date Encounter Closed Date Diagnosis/Indication Diagnosis SNOMED-CT Code Diagnosis ICD10 Code Diagnosis Note [id number] José Antonio Umanzor MD PAIN OFFICE [address] [facility] [place] [address] 11/05/2012 07:56:28 11/05/2012 10:46:13 [id number] José Antonio Umanzor MD PAIN OFFICE [address] [facility] [place] [address] 11/12/2012 13:06:18 11/18/2012 13:56:45 Displacement of lumbar intervertebral disc without myelopathy 27809719 Lumbosacra l radiculitis 53398703 [id number] José Antonio Umanzor MD PAIN OFFICE [address] [facility] [place] [address] 12/11/2012 13:25:59 12/11/2012 14:02:08 Displacement of lumbar intervertebral disc without myelopathy 30277955 Lumbosacra l radiculitis 83400290 Spinal priyank nosis of lumbar region 61216002 [id number] José Antonio Umanzor MD PAIN OFFICE [address] [facility] [place] [address] 12/22/2012 11:20:03 12/22/2012 15:24:15 Spinal stenosis of lumbar region 84150033 Displaceme nt of lumbar intervertebral disc without myelopathy 97341063 Lumbosacra l radiculitis 00515724 [id number] José Antonio Umanzor MD SV PAIN OFFICE [address] [facility] [address] 02/05/2013 13:06:46 02/05/2013 14:50:05 Spinal stenosis of lumbar region 94493513 Displaceme nt of lumbar intervertebral disc without myelopathy 16087433 Lumbosacra l radiculitis 73850590 [id number] José Antonio Umanzor MD SV PAIN OFFICE [address] [facility] [address] 07/26/2014 10:46:47 07/27/2014 09:34:23 Displacement of lumbar intervertebral disc without myelopathy 55724871 Lumbar spondylosis 708420733 Spinal priyank nosis of lumbar region 58059726 [id number] José Antonio Umanzor MD SV PAIN OFFICE [address] [facility] [place] [address] 08/10/2014 14:16:57 08/12/2014 14:31:26 Spinal stenosis of lumbar region 84099336 Displaceme nt of lumbar intervertebral disc without myelopathy 95379443 Lumbar spondylosis 698067311 Lumbosacra l radiculitis 59155292 [id number] José Antonio Umanzor MD PAIN OFFICE [address] [facility] [place] [address] 09/09/2014 10:46:20 09/09/2014 11:33:07 Spinal stenosis of lumbar region 00573695 Displaceme nt of lumbar intervertebral disc without myelopathy 98615325 Lumbar spondylosis 046217966 Lumbosacra l radiculitis 72233280 [id number] José Antonio Umanzor MD [facility] PAIN OFFICE [address] [facility] [place] [address] 11/08/2014 10:54:37 11/08/2014 11:26:13 Spinal stenosis of lumbar region 85158242 Displaceme nt of lumbar intervertebral disc without myelopathy 58996792 Lumbar spondylosis 193770840 Lumbosacra l radiculitis 80314835 [id number] José Antonio Umanzor MD [facility] PAIN OFFICE [address] [facility] [place] [address] 11/09/2014 13:48:33 11/09/2014 15:35:53 Spinal stenosis of lumbar region 07343128 Displaceme nt of lumbar intervertebral disc without myelopathy 27618072 Lumbar spondylosis 104812069 Lumbosacra l radiculitis 52938452 [id number] José Antonio Umanzor MD PAIN OFFICE [address] [facility] [place] [address] 05/31/2015 13:54:03 05/31/2015 14:21:27 Spinal stenosis of lumbar region 97000803 M48.06 Displaceme nt of lumbar intervertebral disc without myelopathy 54433027 M51.26 Lumbar spondylosis 98810 0009 M47.26 Lumbosacra l radiculitis 38206090 M54.17 [id number] José Antonio Umanzor MD PAIN OFFICE [address] [facility] [place] [address] 08/30/2015 15:22:40 09/01/2015 13:37:55 Spinal stenosis of lumbar region 06313614 M48.06 Displaceme nt of lumbar intervertebral disc without myelopathy 31313653 M51.26 Lumbar spondylosis 39825 0009 M47.26 Lumbosacra l radiculitis 52859753 M54.17 [id number] José Antonio Umanzor MD PAIN OFFICE [address] [facility] [place] [address] 06/25/2018 13:43:24 06/25/2018 14:47:03 Degeneration of cervical intervertebral disc 83551211 M50.30 Cervical radiculopathy 75390796 M54.12 [id number] José Antonoi Umanzor MD PAIN OFFICE [address] [facility] [place] [address] 07/03/2018 13:11:22 07/03/2018 14:17:28 Degeneration of cervical intervertebral disc 94692288 M50.30 Cervical radiculopathy 89720377 M54.12 [id number] José Antonio Umanzor MD PAIN OFFICE [address] [facility] [place] [address] 02/26/2019 08:06:35 02/26/2019 08:53:29 Spinal stenosis of lumbar region 37096352 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 25084096 M51.26 Lumbar spondylosis 55872 0009 M47.26 Lumbosacra l radiculitis 26168304 M54.17 [id number] José Antonio Umanzor MD PAIN OFFICE [address] [place] [address] 03/18/2019 10:43:42 03/18/2019 11:40:26 Spinal stenosis of lumbar region 81547799 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 64525775 M51.26 Lumbar spondylosis 87144 0009 M47.26 Lumbosacra l radiculitis 10979634 M54.17 [id number] José Antonio Umanzor MD PAIN OFFICE [address] [place] [address] 04/14/2019 08:57:30 04/14/2019 14:33:43 Spinal stenosis of lumbar region 87099255 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 36015331 M51.26 Lumbar spondylosis 35910 0009 M47.26 Lumbosacra l radiculitis 96952830 M54.17 [id number] José Antonio Umanzor MD PAIN OFFICE [address] [place] [address] 11/10/2019 12:09:37 11/11/2019 10:00:07 Spinal stenosis of lumbar region 09052764 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 61068263 M51.26 Lumbar spondylosis 32352 0009 M47.26 Lumbosacra l radiculitis 43503047 M54.17 [id number] José Antonio Umanzor MD PAIN OFFICE [address] [place] [address] 11/04/2020 09:05:45 11/04/2020 10:13:28 Spinal stenosis of lumbar region 51483231 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 11924664 M51.26 Lumbar spondylosis 46422 0009 M47.26 Lumbosacra l radiculitis 16659629 M54.17 [id number] José Antonio Umanzor MD PAIN OFFICE [address] [facility] [place] [address] 11/08/2020 10:50:37 11/08/2020 11:27:50 Spinal stenosis of lumbar region 69530151 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 94254963 M51.26 Lumbar spondylosis 23110 0009 M47.26 Lumbosacra l radiculitis 98301768 M54.17 Health Concerns Section Related Observation LastModified by Organization Detai ls LastModified Time None Recorded Concern Status LastModified by Organization Details LastModified Time None Recorded Advance Directives Directive None Recorded Payers Insurance Date Sequence Insurance Name Policy Number Policy Nolasco Covered Member ID Nolasco Member ID Guarantor Name 11/01/2020 1 [place] [employer] Jluis Starcheus [id number] Jluis Starcheus 11/01/2020 2 [place] [facility] Jluis Starcheus [id number] Jluis Starcheus Notes Date Note Type Note [...] few steps. José Antonio Umanzor MD [address] , [address], [place], [address], [facility] Pain Management 03/18/2019 15:00:19 04/14/2019 text/html He is here today for a lumbar epidural steroid injection under fluoroscopic guidance. José Antonio Umanzor MD [address] , [address], [place], [address], [facility] Pain Management 04/14/2019 16:33:15 11/10/2019 text/html This [...] also having knee pain and is seeing [facility] and is getting injections. José Antonio Umanzor MD [address] , [address], [place], [address], [facility] Pain Management 11/11/2019 11:16:19 11/04/2020 text/html He is here for a follow up . He continues to have low back pain radiating into right lower extremity. He has been doing physical therapy with some improvement of his pain. He is able to walk without the cane for a few steps. He has been to [facility] . He is discharged from now [...] also present. José Antonio [facility]manzor MD [address], [place], [address], [facility] Pain Management 11/07/2020 09:27:27 11/08/2020 text/html He is here today for a lumbar epidural steroid injection under fluoroscopic guidance. José Antonio Umanzor MD [address] , [address], [place], [address], [facility] Pain Management 11/08/2020 15:27:26
== END 2024-08-06 11:36 | disposition home or self-care (01) ==
LOC: HO.HOS 11:03
PROVIDERS: PCP Internal Medicine; Visit Provider Orthopaedic Surgery
DX: M17.0 Bilateral primary osteoarthritis of knee (principal)
CPT/HCPCS: 20610; 99213

== ENCOUNTER → 2024-08-06 11:01 | Outpatient (BNVA) | payer MEDICARE, MEDICAID, SELFPAY | PROVIDERS: PCP Internal Medicine; Visit Provider Orthopaedic Surgery | DX: M17.0 Bilateral primary osteoarthritis of knee (principal) | CPT/HCPCS: 20610; 99212; J1010; J2003 ==

== ENCOUNTER 2024-11-05 10:02 | Outpatient (AMB) | payer MEDICARE, MEDICAID, SELFPAY ==
[2024-11-05 10:20] VITALS: BMI 38.5
--- NOTE | 2024-11-05 10:20 | A.OFFVIS_ITS ---
Vital Signs 11/05/24 10:20 Height 5 ft Weight 197 lb BMI 38.5 Intake Visit Reasons: Inj-B/L knee injection-last inj 08/06/24 Intake Note: Jluis is a 79 year old man who presents with bilateral knee pains. He describes his pains as sharp in nature. He has tried Tylenol and Celebrex which gave him mild relief. Did have cortisone injections given into both of his knee s earlier this year. He got fairly good relief from the injections. He wishes to hold off on knee replacement surgery for as long as possible. Allergies No Known Allergies Allergy (Verified 11/05/24 10:24) Medication List - Last Reconciled 11/05/24 by Fabrice Barragan MD amlodipine 10 mg PO DAILY celecoxib (Celebrex) 200 mg PO DAILY 3 months gabapentin mg PO hydralazine 25 mg PO BID lisinopril 40 mg PO DAILY metoprolol tartrate 100 mg PO BID pantoprazole 40 mg PO BID pravastatin 40 mg PO DAILY PFSH Surgical History Hx of cholecystectomy Hx of appendectomy Social History Patient Tobacco Use Status: Never used Tobacco Current occupational status: retired Physical Exam Vital Signs: BMI result Body Mass Index 38.5 Const Other: Well-nourished well-developed very friendly male awake alert and oriented x3 in no acute distress Extrem Other: Bilateral knee examination shows minimal effusions, palpable crepitus with range of motion, pain with range of motion, no instability Office Procedures AMB Joint Injection/Aspiration Joint Injection/Aspiration Primary Site: left knee Prep: site was prepped using aseptic technique Injected: 40 mg of, DepoMedrol and 1% plain lidocaine Procedure: The patient tolerated the procedure well Coding 07780 - Large joint Procedure code (CPT) selection complete AMB Joint Injection/Aspiration Joint Injection/Aspiration Primary Site: right knee Prep: site was prepped using aseptic technique Injected: 40 mg of, DepoMedrol and 1% plain lidocaine Procedure: The patient tolerated the procedure well Coding 90633 - Large joint Procedure code (CPT) selection complete Results Reviewed Results Reviewed: X-rays of the patient's bilateral knees taken previously show joint space narrowing, subchondral sclerosis, no acute bony abnormalities Assessment & Plan Assessment & Plan (1) Arthritis of left knee: Code(s): M17.12 - Unilateral primary osteoarthritis, left knee Category: Medical (2) Arthritis of right knee: Code(s): M17.11 - Unilateral primary osteoarthritis, right knee Category: Medical Plan Mr. Murrieta presents with bilateral knee pains due to degenerative joint disease. The risks and benefits of bilateral knee cortisone injections were discussed at length with the patient. The patient wished to proceed. He tolerated the injections well. He will continue with his home exercise program. He will contact me prior to his follow-up appointment in 3 months should any questions or concerns arise. Feel free to call me at any time should questions regarding his orthopedic management arise. I spent 22 minutes in reviewing the patient's records and imaging studies, seeing the patient and documenting in the medical record. Orders: Orders AMB Joint Injection/Aspiration Today M17.11 - Unilateral primary osteoarthritis, right knee AMB Joint Injection/Aspiration Today M17.12 - Unilateral primary osteoarthritis, left knee Coding Level of Care Code Est Pt Level 3 (15547) Complex EM visit Add On G2211 Diagnoses Arthritis of left knee M17.12 Arthritis of right knee M17.11 CPT Codes Coding - 86919 Large joint: 49078 - Large joint ([id number]) Coding - 63904 Large joint: 64064 - Large joint ([id number])
--- OUTSIDE RECORDS SUMMARY | 2024-11-05 11:51 | XMS_ITS | Clinical Summary ---
Author Organization [facility] Address [address] [place] [address] Care Team Providers Care Diabetes Manager Name Role Phone Tyrell Watts MD Primary [...] 1-dose 75+ series) 2021 Influenza Vaccine (#1) 2024 Hepatitis B Vaccines Aged Out No long er eligible based on patient's age to complete this topic RSV Ped < 20 months Aged Out No longe r eligible based on patient's age to complete this topic Care Teams Diabetes Manager Relationship Specialty Start Date End Date Tyrell Watts MD PCP - General Internal Medicine 06/04/18
--- OUTSIDE RECORDS SUMMARY | 2024-11-05 11:51 | XMS_ITS | Clinical Summary ---
Author Organization [facility] Address [address] [place] [address] Phone Care Team Providers Care Apartment Leasing Consultant Name Role Phone Tyrell Watts MD Primary Care Provider [phone] Allergies No known active allergies Medications amLODIPine [...] a day with meals. 5 Active lisinopril (PRINIVIL,ZESTR IL) 40 mg tablet Take 1 tablet (40 [...] dose as needed for acid reflux Active Active Problems Problem Noted Date Diagnosed Date Acute pancreatitis, unspecif ied complication status, unspecified pancreatitis type 04/13/2024 Surgical History Surgery Date Site/Laterality Comments CHOLECYSTECTOMY [...] 52 04/15/2024 11:25 AM EST Temperature 36.6 C (97.8 F) 04/15/2024 11:25 AM EST Respiratory Rate 15 04/15/2024 11:25 AM EST [...] Vaccines (1 of 2) 1996 RSV Immunization Adult Patients (1 - 1-dose 75+ series) 2021 Cholesterol Screening (Lipid Panel) 01/25/2022 Hepatitis C Screening 01/25/2022 Medicare Annual Wellness Visit 01/25/2022 Social Influencers of Health Screening 01/25/2022 Depression Screening 02/19/2024 COVID-19 Vaccine ( season) 2024 12/04/2021, 12/07/2020, 03/26/2020, Additional history exists Influenza Vaccine (#1) 2024 Falls Risk Assessment 04/15/2025 04/15/2024 Hypertension/CHF/CAD Annual [...] age to complete this topic Meningococcal B Vaccine Aged Out No l onger eligible based on patient's age to complete this topic RSV Immunization Patients Under 20 months Aged Out No longer eligible based on patient's age to complete this topic Varicella Vaccines Aged Out No longer eligible based on patient's age to complete this topic Procedures Procedure Name Priority Date/Time Associated Diagnosis Comments BASIC METABOLIC PANEL Routine 04/15/2024 6:44 AM EST from Last 3 Months or Most Recently Relevant to Health Maintenance Results * (ABNORMAL) Basic metabolic panel (04/15/2024 6:44 AM EST) Sodium 142 133 - 145 mmol/L LAB CHEMISTRY METHOD 04/15/2024 8:05 AM EST [facility] Potassium 4.4 3.5 - 5.5 mmol/L LAB CHEMISTRY METHOD 04/15/2024 8:05 AM EST [facility] Chloride 109 96 - 110 mmol/L LAB CHEMISTRY METHOD 04/15/2024 8:05 AM EST [facility] CO2 22 21 - 32 mmol/L LAB CHEMISTRY METHOD 04/15/2024 8:05 AM [facility] Anion Gap 11 3 - 11 LAB CHEMISTRY METHOD 04/15/2024 8:05 AM [facility] Glucose 68(L) 70 - 100 mg/dL LAB CHEMISTRY METHOD 04/15/2024 8:05 AM [facility] BUN 17 5 - 25 mg/dL LAB CHEMISTRY METHOD 04/15/2024 8:05 AM [facility] Creatinine 1.34(H) 0.70 - 1.30 mg/dL LAB CHEMISTRY METHOD 04/15/2024 8:05 AM [facility] eGFR 55(L) >=60 mL/min/1. 73m2 LAB CHEMISTRY METHOD 04/15/2024 8:05 AM [facility] Comment:Calculation based on the Chronic Kidney Disease Epidemiology Collaboration (CKD-EPI) equation refit without adjustment for race. BUN/Creatinine Ratio 12.7 LAB CHEMISTRY METHOD 04/15/2024 8:05 AM [facility] Calcium 9.1 8.5 - 10.5 mg/dL LAB CHEMISTRY METHOD 04/15/2024 8:05 AM [facility] Blood Venous blood specimen / Unknown Venipuncture / Unknown 04/15/2024 6:44 AM EST 04/15/2024 7:30 AM EST us Dorina Garcia INJECTION MOLDING TECHNICIAN LAB BLOOD ORDERABLES Final Resul t [facility] [address] [place] [address], from Last 3 Months or Most Recently Relevant to Health Maintenance Insurance * Guarantor: Paul Nevarez Account Type Relation to Patient Date of Phone Billing Address Personal/Family Self 1945 [address] [place] [address] MEDICARE MEDICAID - [place] Advance Directives * Full Code - Default [...] currently active code status orders. Care Teams Apartment Leasing Consultant Relationship Specialty Start Date End Date Tyrell Watts MD [address] [place] [id number] PCP - General Internal Medicine 02/01/21
--- OUTSIDE RECORDS SUMMARY | 2024-11-05 11:51 | XMS_ITS ---
Author Name [facility] Organization Unknown Results Test Name/Text Value Interpretation Date Range Source LAB AP CLINICAL INFORMATION Well-demarcated erythematous slightly raised plaques with some white scale and no vesicles or bulla; dermatitis unspecified vs hypersensitivity reaction vs contact dermatitis, other vs BP Normal 02/14/2024 [facility] ICD-10 CODES Normal 02/14/2024 [facility] UCONNPATH LAB AP GROSS DESCRIPTION Received in formalin. Dimensions 4 x 4 x 6 mm, bisected, and submitted in 1 cassette. Also received is a vial of tissue transport medium (Fredy) containing a biopsy specimen measuring 4 x 4 x 3 mm. Tissue was washed in phosphate buffered saline and then embedded in OCT for immunofluorescent studies. Tissue was frozen, cut at 5 microns, and stained with fluorescein-labeled antibody to human IgG, IgM, IgA, C3 and fibrinogen. Normal 02/14/2024 [facility] History of Medication Use Medication Directions Dispensed Refills Start Date End Date Stat lidocaine (PF) 100 mg/5 mL (2 %) injection syringe Take 2 mL by injection route. 03/20/2023 active Kenalog 40 mg/mL suspension for injection Take 1 mL by injection route. 09/11/2022 active amlodipine 10 mg tablet TAKE 1 TABLET BY MOUTH EVERY DAY FOR 90 DAYS active gabapentin 100 mg capsule TAKE 1 CAPSULE BY MOUTH TWICE A DAY active hydralazine 25 mg tablet TAKE 1 TABLET BY MOUTH TWICE A DAY WITH FOOD active hydrocortisone 2.5 % topical cream with perineal applicator APPLY TO AFFECTED AREA TWICE A DAY DIRECTED active ketorolac 0.5 % eye drops STARTING TWO DAYS BEFORE SURGERY INSTILL 1 DROP TWICE A DAY IN OPERATIVE EYE active metoprolol tartrate 100 mg tablet TAKE 1 TABLET BY MOUTH TWICE A DAY WITH MEALS active pantoprazole 40 mg tablet,delayed release TAKE 1 TABLET BY MOUTH TWICE A DAY active quetiapine 50 mg tablet TAKE 1 TABLET BY MOUTH EVERYDAY AT BEDTIME active Problems Problem Status Onset Date Problem Type Date of Resoluti on Source Osteoarthritis of right knee joint active 2022-06-06 ProblemAct [facility] Osteoarthritis of left knee joint active 2022-06-06 ProblemAct [facility] Encounters Encounter Type Encounter Reason Primary Diagnosis Location Date Ambulatory [facility] 06/28/2023 Ambulatory [facility] 09/07/2022 Ambulatory [facility] 09/07/2022 Ambulatory [facility] 06/06/2022
== END 2024-11-05 10:47 | disposition home or self-care (01) ==
LOC: HO.HOS 10:03
PROVIDERS: PCP Internal Medicine; Visit Provider Orthopaedic Surgery
DX: M17.0 Bilateral primary osteoarthritis of knee (principal)
CPT/HCPCS: 20610; 99213

== ENCOUNTER → 2024-11-05 10:02 | Outpatient (BNVA) | payer MEDICARE, MEDICAID, SELFPAY | PROVIDERS: PCP Internal Medicine; Visit Provider Orthopaedic Surgery | DX: M17.0 Bilateral primary osteoarthritis of knee (principal) | CPT/HCPCS: 20610; 99212; J1010; J2003 ==

== ENCOUNTER 2025-02-02 09:54 | Outpatient (AMB) | payer MEDICARE, MEDICAID, SELFPAY ==
--- OUTSIDE RECORDS SUMMARY | 2023-09-20 04:00 | XMS_ITS ---
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 Role Phone CECILIA АЛЕКСАНДР Primary Care Provider [facility] [phone] REASON FOR VISIT 1 yr follow up (AWV w/nursing 1st) Encounters Encounter Location Date Provider Diagnosis [address] [address] 09/20/2023 [facility] Plan Of Treatment Next Appt Details Provider Name:АЛЕКСАНДР BROOKS , 02/10/2025 11:30:00 AM, [address] [place] [address], [phone], Provider Name:АЛЕКСАНДР BROOKS , 04/07/2025 10:45:00 AM, [address] [place] [address], [phone], Progress Notes * LOUISA NEVAREZOB:1945 (79 yo M)Acc No.[id number]:09/20/2023 Progress Note Patient: PAUL BUENROSTRO Provider: Niles Briones :1945 A ge:77 Y S ex:Male Date:09/20/2023 Address:[address] [place], [place] [id number] Pcp:АЛЕКСАНДР BROOKS Subjective: * Chief Complaints: * 1 yr follow up (AWV w/nursing 1st) * Medical History: Disease : CKD, Disease : gout, cardiovascular, Disease : Elevated lipids, cardiovascular, Disease : Hypertension, Problems: Chronic renal impairment, Added Date: 11/07/2014, Onset Date: 07/26/2009:Active Problems: Kidney stone, Added Date: 11/07/2014, Onset Date: 07/26/2009:Active Problems: Mixed hyperlipidemia, Added Date: 11/07/2014, Onset Date: 08/17/2009:Active Problems: Peripheral venous insufficiency, Added Date: 11/07/2014, Onset Date: 10/29/2011:Active HCP- * Electronic signature of CLARICE TOLENTINO on 02/02/2025 at 11:57 AM EST Sign off status: Pending * Provider: Trip [facility]th Nursing Date: 0 09/20/2023 Generated for Octaviano patton/Cody/Javier on: 1 04/05/2024 11:57 AM EST
--- NOTE | 2025-02-02 10:01 | A.OFFVIS_ITS ---
Vital Signs 02/02/25 10:05 Height 5 ft Weight 197 lb BMI 38.5 Intake Visit Reasons: Inj-B/L knee injection-last inj 11/05/24 Intake Note: Jluis is a 79 year old man who presents with bilateral knee pains. He describes his knee pains as sharp in nature. He has tried Tylenol and Celebrex which gave him mild relief. He has also had cortisone injections which have given him good relief. He wishes to hold off on total knee replacement surgery if at all possible. Allergies No Known Allergies Allergy (Verified 11/05/24 10:24) Medication List - Last Reconciled 02/02/25 by Fabrice Barragan MD amlodipine 10 mg PO DAILY celecoxib (Celebrex) 200 mg PO DAILY 3 months gabapentin mg PO hydralazine 25 mg PO BID lisinopril 40 mg PO DAILY metoprolol tartrate 100 mg PO BID pantoprazole 40 mg PO BID pravastatin 40 mg PO DAILY PFSH Surgical History Hx of cholecystectomy Hx of appendectomy Social History Patient Tobacco Use Status: Never used Tobacco Current occupational status: retired Physical Exam Vital Signs: BMI result Body Mass Index 38.5 Extrem Other: Bilateral knee examination shows minimal effusions, palpable crepitus with range of motion, pain with range of motion, no instability Office Procedures AMB Joint Injection/Aspiration Joint Injection/Aspiration Primary Site: Left Knee Prep: site was prepped using aseptic technique Injected: 40 mg of, DepoMedrol, with 3 mL of and 1% plain Lidocaine Procedure: The patient tolerated the procedure well Coding 82603 - Large joint Procedure code (CPT) selection complete AMB Joint Injection/Aspiration Joint Injection/Aspiration Primary Site: Right Knee Prep: site was prepped using aseptic technique Injected: 40 mg of, DepoMedrol, with 3 mL of and 1% plain Lidocaine Procedure: The patient tolerated the procedure well Coding 82303 - Large joint Procedure code (CPT) selection complete Results Reviewed Results Reviewed: X-rays of the patient's bilateral knees taken previously show joint space narrowing, subchondral sclerosis, no acute bony abnormalities Assessment & Plan Assessment & Plan (1) Arthritis of left knee: Code(s): M17.12 - Unilateral primary osteoarthritis, left knee Category: Medical (2) Arthritis of right knee: Code(s): M17.11 - Unilateral primary osteoarthritis, right knee Category: Medical Plan Mr. Murrieta presents with bilateral knee pains due to osteoarthritis. The risks and benefits of bilateral knee cortisone injections were discussed at length with the patient. The patient wished to proceed. He tolerated the injections well. He will continue with his home exercise program. He will contact me prior to his follow-up appointment in 3 months should any questions or concerns arise. Feel free to call me at any time should questions regarding his orthopedic management arise. I spent 21 minutes in reviewing the patient's records and imaging studies, seeing the patient and documenting in the medical record. Orders: Orders 2 AMB Joint Injection/Aspiration Today M17.12 - Unilateral primary osteoarthritis, left knee AMB Joint Injection/Aspiration Today M17.11 - Unilateral primary osteoarthritis, right knee Coding Level of Care Code Est Pt Level 3 (15346) Add On Problem Visit Only Diagnoses Arthritis of left knee M17.12 Arthritis of right knee M17.11 CPT Codes Coding - 87113 Large joint: 82589 - Large joint ([id number]) Coding - 52126 Large joint: 71759 - Large joint ([id number])
[2025-02-02 10:05] VITALS: BMI 38.5
--- OUTSIDE RECORDS SUMMARY | 2025-02-02 11:57 | XMS_ITS | Patient Health Record ---
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 chills after 1/2 hour of ingenstion Drug Allergy Active Reason For Referral Reason Hospital Followup [facility] Diagnosis 1 Acute pancreatitis w ithout infection or necrosis, unspecified pancreatitis type (K85.90) Referral Organization [facility] soci[facility] Referring Provider First Name АЛЕКСАНДР Referring Provider Last Name CECILIA Referring Provider Speciality Internal M edicine Referred Provider Specialty Gastroentero logy Referral Priority Routine Medications Medication SIG (Take, Route, Frequency, Duration) Notes Start Date End Date Status Metoprolol Tartrate 25 MG Tablet 1 tablet with food Orally Twice a day 07/02/2024 Active hydrALAZINE HCl 25 MG Tablet 1 tablet with food Orally Twice a day Active amLODIPine Besylate 10 MG Tablet TAKE 1 TABLET BY MOUTH EVERY DAY Active Lisinopril 40 MG Tablet 1 tablet Orally Once a day Active Pravastatin Sodium 40 MG Tablet TAKE 1 TABLET BY MOUTH EVERY DAY; Duration: 90 Active Triamcinolone Acetonide 0.1 % Cream 1 application Externally Twice a day; Duration: 30 day(s) 09/20/2023 Active Gabapentin 100 MG Capsule 1 capsule Oral ly Twice a day Active Pantoprazole Sodium 40 MG Tablet Delayed Release 1 tablet Oral Once a day 11/23/2021 Active QUEtiapine Fumarate 50 MG Tablet 1/2 tablet at bedtime Orally Once a day Active Zolpidem Tartrate 5 MG Tablet 1 tablet at bedtime as needed Orally Once a day Active Medrol 4 MG Tablet Therapy Pack as directed Orally daily; Duration: 6 01/25/2025 Active Immunizations Vaccine Route Administration Date Status Comme nts Pfizer COVID-19,mRNA, LNP-S, PF, 30mcg/0.3mL dose Unknown 03/05/2020 Administered Pfizer COVID-19,mRNA, LNP-S, PF, 30mcg/0.3mL dose Unknown 03/26/2020 Administered SARSCOV2 VAC BVL 3MCG/0.2ML Pfizer Unknown 12/28/2020 A dministered Social History Tobacco Use: Social History Observation Description Date Details (start date - stop date) Never Smoker NA - NA Social History Drug/Alcohol: Social Info Question Answer Notes Alcohol Screen Did you have a drink containing alcohol in the past year? No Points 0 Interpretation Negative Tobacco Use: Social Info Question Answer Notes Smoking Are you a: never smoker Additional Details Category Social Info Options Details General Occupation: Retired asbestos exposure: no alcohol use: no drug use: no Coffee/Tea/Soda: yes 1 cup of coffee daily Marital Status Seperate experience yes [employer] 2 years Living with Alone Pets none smokers in household no Problems Problem Type SNOMED Code ICD Code Onset Dates Problem Status W/U Status Risk Notes Problem Morbid obesity (disorder) (620483658) Morbid (severe) obesity due to excess calories (E66.01) Active confirmed Problem Primary insomnia (3322647) Primary insomnia (F51.01) Active confirmed Problem Mixed hyperlipidemia (714041730) Mixed hyperlipidemia (E78.2) Active confirmed Problem Gastroesophageal reflux disease without esophagitis (165291496) Gastroesophageal reflux disease without esophagitis (K21.9) Active confirmed Problem Osteoarthritis of knee (609230637) Primary osteoarthritis of both knees (M17.0) Active confirmed Problem Gouty arthritis (44736638) Gouty arthritis (M10.9) Active confirmed Problem Chronic gouty arthritis (99339404) Chronic gout without tophus, unspecified cause, unspecified site ([id number].[id number]) Active confirmed Problem Osteoarthritis of knee (909318884) Localized osteoarthritis of knees, bilateral (M17.0) Active confirmed Problem Obese class II (681881736881764) Body mass index [BMI] 35.0-35.9, adult (Z68.35) Active confirmed Problem Chronic kidney disease stage 3B (disorder) (686855369) Stage 3b chronic kidney disease (CKD) (N18.32) Active confirmed Problem Degeneration of intervertebral disc of lumbar region with discogenic back pain and lower extremity pain (M51.362) Active confirmed Problem Essential hypertension (25343458) Essential (primary) hypertension (I10) 010 Active confirmed Vital Signs Blood pressure diastolic 60 mm Hg 12/02/2024 low back radiating down left leg Height 63.00 in 12/02/2024 low back radiat ing down left leg Blood pressure systolic 120 mm Hg 12/02/2024 low back radiating down left leg Weight 174.0 lbs 12/02/2024 low back radiat ing down left leg BMI 30.82 kg/m2 12/02/2024 low back radiat ing down left leg Encounters Encounter Location Date Provider Diagnosis [place] [phone] 04/01/2024 [facility] Essential (primary) hypertension I10 ; Mixed hyperlipidemia E78.2 ; Morbid (severe) obesity due to excess calories E66.01 ; Prediabetes R73.03 ; Primary osteoarthritis of both knees M17.0 and Gouty arthritis M10.9 [place] [id number] 04/20/2024 [facility] Acute pancreatitis without infection or necrosis, unspecified pancreatitis type K85.90 ; Essential (primary) hypertension I10 and Stage 3b chronic kidney disease (CKD) N18.32 [place] [id number] 07/02/2024 [facility] Essential (primary) hypertension I10 ; Bradycardia R00.1 ; Gouty arthritis M10.9 ; Stage 3b chronic kidney disease (CKD) N18.32 ; Localized osteoarthritis of knees, bilateral M17.0 ; Degeneration of intervertebral disc of lumbar region with discogenic back pain and lower extremity pain M51.362 ; Mixed hyperlipidemia E78.2 ; Weight loss R63.4 ; Generalized abdominal pain R10.84 and Encounter for general adult medical examination without abnormal findings Z00.[address] [address] 07/02/2024 [facility] Medicare annual wellness visit, subsequent Z00.[address] [phone] 08/07/2024 АЛЕКСАНДР BROOKS Essential (primary) hypertension I10 ; Bradycardia R00.1 and Gouty arthritis M10.[address] [address] 12/02/2024 АЛЕКСАНДР [facility] Primary osteoarthrit is of both knees M17.0 ; Essential (primary) hypertension I10 ; Degeneration of intervertebral disc of lumbar region with discogenic back pain and lower extremity pain M51.362 ; Gastroesophageal reflux disease without esophagitis K21.9 ; Stage 3b chronic kidney disease (CKD) N18.32 and Primary insomnia F51.[address] [address] 04/02/2024 [facility] Acute renal failure, unspecified acute renal failure type N17.[address] [address] 04/16/[address] [address] 04/16/[address] [address] 04/22/[address] [address] 05/13/[address] [address] 07/24/[address] [phone] 01/25/2025 [facility] Assessments Encounter Date Diagnosis (ICD Code) Assessment Notes Treatment Notes Treatment Clinical Notes Section Notes 12/02/2024 Essential (primary) hypertension (ICD-10 - I10) 1. Bilateral osteoarthritis of the knees: Dr. Barragan told him he needs joint replacement on the left. He is not inclined to pursue this at present. Will continue to follow with periodic injections 2. Hypertension: Well-controlled on present metoprolol, hydralazine, lisinopril and amlodipine. Will maintain 3. Lumbar degenerative disc disease: Stable with periodic injections and SV pain. Will continue to follow on gabapentin 4. Gastroesophageal reflux: No recent symptoms on pantoprazole. Stable. Will continue 5. Stage IIIb chronic kidney disease: Long-term stability on laboratory data. He knows to avoid NSAIDs 6. Insomnia: Stable on present zolpidem and Seroquel. Will follow-up 04/01/2024 Essential (primary) hypertension (ICD-10 - I10) 1. Hypertension: Well-controlled on present therapy. No changes made today 2. Hyperlipidemia: We will update profile on pravastatin 3. Obesity: Will check A1c with blood work. Was in prediabetes range at last check 4. Osteoarthritis of the knees: Stable with episodic injections from orthopedics 5. Gout: Will update uric acid level with labs on [facility] 04/01/2024 Mixed hyperlipidemia (ICD-10 - E78.2) 1. Hypertension: Well-controlled on present therapy. No changes made today 2. Hyperlipidemia: We will update profile on pravastatin 3. Obesity: Will check A1c with blood work. Was in prediabetes range at last check 4. Osteoarthritis of the knees: Stable with episodic injections from orthopedics 5. Gout: Will update uric acid level with labs on [facility] 04/02/2024 Acute renal failure, unspecified acute renal failure type (ICD-10 - N17.9) 12/02/2024 Primary osteoarthritis of both knees (ICD-10 - M17.0) 1. Bilateral osteoarthritis of the knees: Dr. Barragan told him he needs joint replacement on the left. He is not inclined to pursue this at present. Will continue to follow with periodic injections 2. Hypertension: Well-controlled on present metoprolol, hydralazine, lisinopril and amlodipine. Will maintain 3. Lumbar degenerative disc disease: Stable with periodic injections and SV pain. Will continue to follow on gabapentin 4. Gastroesophageal reflux: No recent symptoms on pantoprazole. Stable. Will continue 5. Stage IIIb chronic kidney disease: Long-term stability on laboratory data. He knows to avoid NSAIDs 6. Insomnia: Stable on present zolpidem and Seroquel. Will follow-up 08/07/2024 Essential (primary) hypertension (ICD-10 - I10) 1. Hypertension: Stable with drop in metoprolol. Continue same regimen 2. Bradycardia: Better with drop in metoprolol. Continue same 3. Gouty arthritis: Improved after prednisone taper. Will follow for any recurrence 08/07/2024 Bradycardia (ICD-10 - R00.1) 1. Hypertension: Stable with drop in metoprolol. Continue same regimen 2. Bradycardia: Better with drop in metoprolol. Continue same 3. Gouty arthritis: Improved after prednisone taper. Will follow for any recurrence 07/02/2024 Medicare annual wellness visit, subsequent (ICD-10 - Z00.00) AWV reviewed with pt 07/02/2024 Essential (primary) hypertension (ICD-10 - I10) 1. Bradycardia: Will cut metoprolol to 25 mg twice a day and plan to reassess in a month 2. Hypertension: Stable on present regimen. Will recheck in a month with need to adjust metoprolol dosing 3. Gout: Will treat with a prednisone taper and reassess at follow-up 4. Stage IIIb chronic kidney disease: Labs have been stable and he knows to avoid NSAIDs 5. Osteoarthritis of the knees: Stable with periodic injections from orthopedics 6. Lumbar degenerative disc disease: Stable with periodic injections from SV pain 7. Hyperlipidemia: Will update profile on atorvastatin 8. Weight loss and abdominal pain: Will check a CT scan of the abdomen and pelvis 9. Routine healthcare maintenance: Colonoscopy is due next year. His last was in 2020. Labs are up-to-date. 07/02/2024 Bradycardia (ICD-10 - R00.1) 1. Bradycardia: Will cut metoprolol to 25 mg twice a day and plan to reassess in a month 2. Hypertension: Stable on present regimen. Will recheck in a month with need to adjust metoprolol dosing 3. Gout: Will treat with a prednisone taper and reassess at follow-up 4. Stage IIIb chronic kidney disease: Labs have been stable and he knows to avoid NSAIDs 5. Osteoarthritis of the knees: Stable with periodic injections from orthopedics 6. Lumbar degenerative disc disease: Stable with periodic injections from SV pain 7. Hyperlipidemia: Will update profile on atorvastatin 8. Weight loss and abdominal pain: Will check a CT scan of the abdomen and pelvis 9. Routine healthcare maintenance: Colonoscopy is due next year. His last was in 2020. Labs are up-to-date. 04/20/2024 Essential (primary) hypertension (ICD-10 - I10) Hospital records reviewed at length 1. Pancreatitis: Cause unclear. Prior stone passage question. Will recheck labs today to ensure they continue to improve. Lipase was trending down at discharge. Patient appears clinically stable. Will arrange GI follow-up as recommended 2. Hypertension: Stable on present therapy. No changes made today 3. Stage IIIb chronic kidney disease: Creatinine was bumped slightly on last labs. He received large-volume IV fluids in the hospital. Will recheck renal function today 04/20/2024 Acute pancreatitis without infection or necrosis, unspecified pancreatitis type (ICD-10 - K85.90) Hospital records reviewed at length 1. Pancreatitis: Cause unclear. Prior stone passage question. Will recheck labs today to ensure they continue to improve. Lipase was trending down at discharge. Patient appears clinically stable. Will arrange GI follow-up as recommended 2. Hypertension: Stable on present therapy. No changes made today 3. Stage IIIb chronic kidney disease: Creatinine was bumped slightly on last labs. He received large-volume IV fluids in the hospital. Will recheck renal function today 04/20/2024 Stage 3b chronic kidney disease (CKD) (ICD-10 - N18.32) Hospital records reviewed at length 1. Pancreatitis: Cause unclear. Prior stone passage question. Will recheck labs today to ensure they continue to improve. Lipase was trending down at discharge. Patient appears clinically stable. Will arrange GI follow-up as recommended 2. Hypertension: Stable on present therapy. No changes made today 3. Stage IIIb chronic kidney disease: Creatinine was bumped slightly on last labs. He received large-volume IV fluids in the hospital. Will recheck renal function today 07/02/2024 Gouty arthritis (ICD-10 - M10.9) 1. Bradycardia: Will cut metoprolol to 25 mg twice a day and plan to reassess in a month 2. Hypertension: Stable on present regimen. Will recheck in a month with need to adjust metoprolol dosing 3. Gout: Will treat with a prednisone taper and reassess at follow-up 4. Stage IIIb chronic kidney disease: Labs have been stable and he knows to avoid NSAIDs 5. Osteoarthritis of the knees: Stable with periodic injections from orthopedics 6. Lumbar degenerative disc disease: Stable with periodic injections from SV pain 7. Hyperlipidemia: Will update profile on atorvastatin 8. Weight loss and abdominal pain: Will check a CT scan of the abdomen and pelvis 9. Routine healthcare maintenance: Colonoscopy is due next year. His last was in 2020. Labs are up-to-date. 08/07/2024 Gouty arthritis (ICD-10 - M10.9) 1. Hypertension: Stable with drop in metoprolol. Continue same regimen 2. Bradycardia: Better with drop in metoprolol. Continue same 3. Gouty arthritis: Improved after prednisone taper. Will follow for any recurrence 12/02/2024 Degeneration of intervertebral disc of lumbar region with discogenic back pain and lower extremity pain (ICD-10 - M51.362) 1. Bilateral osteoarthritis of the knees: Dr. Barragan told him he needs joint replacement on the left. He is not inclined to pursue this at present. Will continue to follow with periodic injections 2. Hypertension: Well-controlled on present metoprolol, hydralazine, lisinopril and amlodipine. Will maintain 3. Lumbar degenerative disc disease: Stable with periodic injections and SV pain. Will continue to follow on gabapentin 4. Gastroesophageal reflux: No recent symptoms on pantoprazole. Stable. Will continue 5. Stage IIIb chronic kidney disease: Long-term stability on laboratory data. He knows to avoid NSAIDs 6. Insomnia: Stable on present zolpidem and Seroquel. Will follow-up 04/01/2024 Morbid (severe) obesity due to excess calories (ICD-10 - E66.01) 1. Hypertension: Well-controlled on present therapy. No changes made today 2. Hyperlipidemia: We will update profile on pravastatin 3. Obesity: Will check A1c with blood work. Was in prediabetes range at last check 4. Osteoarthritis of the knees: Stable with episodic injections from orthopedics 5. Gout: Will update uric acid level with labs on [facility] 04/01/2024 Prediabetes (ICD-10 - R73.03) 1. Hypertension: Well-controlled on present therapy. No changes made today 2. Hyperlipidemia: We will update profile on pravastatin 3. Obesity: Will check A1c with blood work. Was in prediabetes range at last check 4. Osteoarthritis of the knees: Stable with episodic injections from orthopedics 5. Gout: Will update uric acid level with labs on [facility] 12/02/2024 Gastroesophageal reflux disease without esophagitis (ICD-10 - K21.9) 1. Bilateral osteoarthritis of the knees: Dr. Barragan told him he needs joint replacement on the left. He is not inclined to pursue this at present. Will continue to follow with periodic injections 2. Hypertension: Well-controlled on present metoprolol, hydralazine, lisinopril and amlodipine. Will maintain 3. Lumbar degenerative disc disease: Stable with periodic injections and SV pain. Will continue to follow on gabapentin 4. Gastroesophageal reflux: No recent symptoms on pantoprazole. Stable. Will continue 5. Stage IIIb chronic kidney disease: Long-term stability on laboratory data. He knows to avoid NSAIDs 6. Insomnia: Stable on present zolpidem and Seroquel. Will follow-up 07/02/2024 Stage 3b chronic kidney disease (CKD) (ICD-10 - N18.32) 1. Bradycardia: Will cut metoprolol to 25 mg twice a day and plan to reassess in a month 2. Hypertension: Stable on present regimen. Will recheck in a month with need to adjust metoprolol dosing 3. Gout: Will treat with a prednisone taper and reassess at follow-up 4. Stage IIIb chronic kidney disease: Labs have been stable and he knows to avoid NSAIDs 5. Osteoarthritis of the knees: Stable with periodic injections from orthopedics 6. Lumbar degenerative disc disease: Stable with periodic injections from SV pain 7. Hyperlipidemia: Will update profile on atorvastatin 8. Weight loss and abdominal pain: Will check a CT scan of the abdomen and pelvis 9. Routine healthcare maintenance: Colonoscopy is due next year. His last was in 2020. Labs are up-to-date. 07/02/2024 Localized osteoarthritis of knees, bilateral (ICD-10 - M17.0) 1. Bradycardia: Will cut metoprolol to 25 mg twice a day and plan to reassess in a month 2. Hypertension: Stable on present regimen. Will recheck in a month with need to adjust metoprolol dosing 3. Gout: Will treat with a prednisone taper and reassess at follow-up 4. Stage IIIb chronic kidney disease: Labs have been stable and he knows to avoid NSAIDs 5. Osteoarthritis of the knees: Stable with periodic injections from orthopedics 6. Lumbar degenerative disc disease: Stable with periodic injections from SV pain 7. Hyperlipidemia: Will update profile on atorvastatin 8. Weight loss and abdominal pain: Will check a CT scan of the abdomen and pelvis 9. Routine healthcare maintenance: Colonoscopy is due next year. His last was in 2020. Labs are up-to-date. 12/02/2024 Stage 3b chronic kidney disease (CKD) (ICD-10 - N18.32) 1. Bilateral osteoarthritis of the knees: Dr. Barragan told him he needs joint replacement on the left. He is not inclined to pursue this at present. Will continue to follow with periodic injections 2. Hypertension: Well-controlled on present metoprolol, hydralazine, lisinopril and amlodipine. Will maintain 3. Lumbar degenerative disc disease: Stable with periodic injections and SV pain. Will continue to follow on gabapentin 4. Gastroesophageal reflux: No recent symptoms on pantoprazole. Stable. Will continue 5. Stage IIIb chronic kidney disease: Long-term stability on laboratory data. He knows to avoid NSAIDs 6. Insomnia: Stable on present zolpidem and Seroquel. Will follow-up 04/01/2024 Primary osteoarthritis of both knees (ICD-10 - M17.0) 1. Hypertension: Well-controlled on present therapy. No changes made today 2. Hyperlipidemia: We will update profile on pravastatin 3. Obesity: Will check A1c with blood work. Was in prediabetes range at last check 4. Osteoarthritis of the knees: Stable with episodic injections from orthopedics 5. Gout: Will update uric acid level with labs on [facility] 04/01/2024 Gouty arthritis (ICD-10 - M10.9) 1. Hypertension: Well-controlled on present therapy. No changes made today 2. Hyperlipidemia: We will update profile on pravastatin 3. Obesity: Will check A1c with blood work. Was in prediabetes range at last check 4. Osteoarthritis of the knees: Stable with episodic injections from orthopedics 5. Gout: Will update uric acid level with labs on [facility] 07/02/2024 Degeneration of intervertebral disc of lumbar region with discogenic back pain and lower extremity pain (ICD-10 - M51.362) 1. Bradycardia: Will cut metoprolol to 25 mg twice a day and plan to reassess in a month 2. Hypertension: Stable on present regimen. Will recheck in a month with need to adjust metoprolol dosing 3. Gout: Will treat with a prednisone taper and reassess at follow-up 4. Stage IIIb chronic kidney disease: Labs have been stable and he knows to avoid NSAIDs 5. Osteoarthritis of the knees: Stable with periodic injections from orthopedics 6. Lumbar degenerative disc disease: Stable with periodic injections from SV pain 7. Hyperlipidemia: Will update profile on atorvastatin 8. Weight loss and abdominal pain: Will check a CT scan of the abdomen and pelvis 9. Routine healthcare maintenance: Colonoscopy is due next year. His last was in 2020. Labs are up-to-date. 12/02/2024 Primary insomnia (ICD-10 - F51.01) 1. Bilateral osteoarthritis of the knees: Dr. Barragan told him he needs joint replacement on the left. He is not inclined to pursue this at present. Will continue to follow with periodic injections 2. Hypertension: Well-controlled on present metoprolol, hydralazine, lisinopril and amlodipine. Will maintain 3. Lumbar degenerative disc disease: Stable with periodic injections and SV pain. Will continue to follow on gabapentin 4. Gastroesophageal reflux: No recent symptoms on pantoprazole. Stable. Will continue 5. Stage IIIb chronic kidney disease: Long-term stability on laboratory data. He knows to avoid NSAIDs 6. Insomnia: Stable on present zolpidem and Seroquel. Will follow-up 07/02/2024 Mixed hyperlipidemia (ICD-10 - E78.2) 1. Bradycardia: Will cut metoprolol to 25 mg twice a day and plan to reassess in a month 2. Hypertension: Stable on present regimen. Will recheck in a month with need to adjust metoprolol dosing 3. Gout: Will treat with a prednisone taper and reassess at follow-up 4. Stage IIIb chronic kidney disease: Labs have been stable and he knows to avoid NSAIDs 5. Osteoarthritis of the knees: Stable with periodic injections from orthopedics 6. Lumbar degenerative disc disease: Stable with periodic injections from SV pain 7. Hyperlipidemia: Will update profile on atorvastatin 8. Weight loss and abdominal pain: Will check a CT scan of the abdomen and pelvis 9. Routine healthcare maintenance: Colonoscopy is due next year. His last was in 2020. Labs are up-to-date. 07/02/2024 Weight loss (ICD-10 - R63.4) 1. Bradycardia: Will cut metoprolol to 25 mg twice a day and plan to reassess in a month 2. Hypertension: Stable on present regimen. Will recheck in a month with need to adjust metoprolol dosing 3. Gout: Will treat with a prednisone taper and reassess at follow-up 4. Stage IIIb chronic kidney disease: Labs have been stable and he knows to avoid NSAIDs 5. Osteoarthritis of the knees: Stable with periodic injections from orthopedics 6. Lumbar degenerative disc disease: Stable with periodic injections from SV pain 7. Hyperlipidemia: Will update profile on atorvastatin 8. Weight loss and abdominal pain: Will check a CT scan of the abdomen and pelvis 9. Routine healthcare maintenance: Colonoscopy is due next year. His last was in 2020. Labs are up-to-date. 07/02/2024 Generalized abdominal pain (ICD-10 - R10.84) 1. Bradycardia: Will cut metoprolol to 25 mg twice a day and plan to reassess in a month 2. Hypertension: Stable on present regimen. Will recheck in a month with need to adjust metoprolol dosing 3. Gout: Will treat with a prednisone taper and reassess at follow-up 4. Stage IIIb chronic kidney disease: Labs have been stable and he knows to avoid NSAIDs 5. Osteoarthritis of the knees: Stable with periodic injections from orthopedics 6. Lumbar degenerative disc disease: Stable with periodic injections from SV pain 7. Hyperlipidemia: Will update profile on atorvastatin 8. Weight loss and abdominal pain: Will check a CT scan of the abdomen and pelvis 9. Routine healthcare maintenance: Colonoscopy is due next year. His last was in 2020. Labs are up-to-date. 07/02/2024 Encounter for general adult medical examination without abnormal findings (ICD-10 - Z00.00) 1. Bradycardia: Will cut metoprolol to 25 mg twice a day and plan to reassess in a month 2. Hypertension: Stable on present regimen. Will recheck in a month with need to adjust metoprolol dosing 3. Gout: Will treat with a prednisone taper and reassess at follow-up 4. Stage IIIb chronic kidney disease: Labs have been stable and he knows to avoid NSAIDs 5. Osteoarthritis of the knees: Stable with periodic injections from orthopedics 6. Lumbar degenerative disc disease: Stable with periodic injections from SV pain 7. Hyperlipidemia: Will update profile on atorvastatin 8. Weight loss and abdominal pain: Will check a CT scan of the abdomen and pelvis 9. Routine healthcare maintenance: Colonoscopy is due next year. His last was in 2020. Labs are up-to-date. Plan Of Treatment Future Test Test Name Order Date [id number] 04/02/2024 Next Appt Details Provider Name:АЛЕКСАНДР BROOKS , 02/10/2025 11:30:00 AM, [address] [place], [address], Provider Name:АЛЕКСАНДР BROOKS , 04/07/2025 10:45:00 AM, [address] [facility], [place], [address], Insurance Providers Payer Name Payer Address Payer Phone Subscriber Number Group Number Insured Name Patient Relationship to Insured Coverage Start Date Coverage End Date MEDICARE [employer] [address] [place] [phone] [id number] PAUL AGUILA Self - patient is the insured 2 [employer] [facility] [address] [place] [phone] [id number] PAUL AGUILA Self - patient is the insured 2 [employer] [facility] [employer] [address] [place] [phone] [id number] PAUL AGUILA Self - patient is the insured 0 Medical (General) History Medical History History ICD Code Disease : CKD, Disease : gout, cardiovascular, Disease : Elevated lipid s, cardiovascular, Disease : Hypertension, Problems: Chronic renal impa irment, Added Date: 11/07/2014, Onset Date: 07/26/2009:Active Problems: Kidney stone, Adde d Date: 11/07/2014, Onset Date: 07/26/2009:Active Problems: Mixed hyperlipidem ia, Added Date: 11/07/2014, Onset Date: 08/17/2009:Active Problems: Peripheral venous insufficiency, Added Date: 11/07/2014, Onset Date: 10/29/2011:Active HCP- Sandy Nevarez (daughter) Surgical History Surgery Date(Month/Year) Cholecystitis, Sx_Procedure : Cholecyste ctomy 2009 Appendicitis, Sx_Procedure : Appendectom y 1955
--- OUTSIDE RECORDS SUMMARY | 2025-02-02 11:57 | XMS_ITS | Clinical Summary ---
Author Organization [facility] Prior to 07/18/24 Address [address] [place] [address] Care Team Providers Care Pneumatic Systems Operator Name Role Phone Tyrell Watts MD [...] age to complete this topic Care Teams Pneumatic Systems Operator Relationship Specialty Start Date End Date Tyrell Watts MD PCP - General Internal Medicine 06/04/18
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
== END 2025-02-02 10:28 | disposition home or self-care (01) ==
LOC: HO.HOS 09:54
PROVIDERS: PCP Internal Medicine; Visit Provider Orthopaedic Surgery
DX: M17.0 Bilateral primary osteoarthritis of knee (principal)
CPT/HCPCS: 20610; 99213

== ENCOUNTER → 2025-02-02 09:54 | Outpatient (BNVA) | payer MEDICARE, MEDICAID, SELFPAY | PROVIDERS: PCP Internal Medicine; Visit Provider Orthopaedic Surgery | DX: M17.0 Bilateral primary osteoarthritis of knee (principal) | CPT/HCPCS: 20610; 99212; J1010; J2003 ==